=== PATIENT | female | born 1965 | race American Indian/Alaskan Native ===

== ENCOUNTER 2016-07-10 00:36 | Emergency (ER) | payer MEDICARE, MEDICAID ==
[2016-07-10 01:20] LABS: CHLORIDE,CL 102 mmol/L (101-111); SODIUM,NA 138 mmol/L (135-145)
--- NOTE | 2016-07-10 01:31 | EDM.PDOC ---
ED HPI RENAL/ - General Chief Complaint: Genitourinary Problem Stated Complaint: URINATING BLOOD Time Seen by Provider: 07/10/16 01:15 Source of Information: Reports: Patient History Limitations: Reports: No limitations - History of Present Illness INITIAL COMMENTS - FREE TEXT/NARRATIVE: This 51 yo female patient reports to the ED with blood in her urine and urinary frequency. The patient reports her frequency started this afternoon at about 1700 and her hematuria started just prior to coming into the ED. The patient also reports she had right flank pain. The patient took a hydrocodone for the back pain. Symptom Onset Date: 07/09/16 Symptom Onset Time: 17:00 Timing/Duration: Reports: Constant, Getting worse Location: Reports: urethral Quality: Reports: ache, burning Severity: moderate Worsens with: Reports: urinating Associated Symptoms: Reports: burning, dysuria, frequency, blood in urine Treatments [employer]ING: Reports: Other medication(s) - Related Data Allergies/ADRs: Allergies Allergy/AdvReac Type Severity Reaction Status Date / Time erythromycin base Allergy Hives Verified 07/10/16 00:56 [Erythromycin Base] Iodinated Contrast Media - Allergy Cannot Verified 07/10/16 00:56 Oral and Remember [Iodinated Contrast Media - IV Dye] sulfamethoxazole Allergy Hives Verified 07/10/16 00:56 [From Bactrim] tramadol Allergy Rash Verified 07/10/16 00:56 trimethoprim [From Bactrim] Allergy Hives Verified 07/10/16 00:56 IVP dye Allergy Cannot Uncoded 03/06/16 18:41 Remember pollen Allergy Cannot Uncoded 03/06/16 18:41 Remember Home Meds: Home Meds Baclofen 10 mg PO DAILY 04/23/13 [History] DULoxetine [Cymbalta] 60 mg PO DAILY 04/23/13 [History] Insulin Aspart [NovoLOG] 0 units SQ TID PRN 04/23/13 [History] Insulin Detemir [Levemir] 90 units SQ BID 04/23/13 [History] Simvastatin 20 mg PO BEDTIME 04/23/13 [History] Verapamil HCl [Verapamil ER] 180 mg PO BID 04/23/13 [History] Albuterol [Ventolin HFA] 2 puff INH Q4H PRN 09/04/13 [History] Casanthranol-Docusate Sodium 1 cap PO BID 09/04/13 [History] Folic Acid 1 mg PO DAILY 09/04/13 [History] Multivitamin [Multi-Vitamin Daily] 1 tab PO DAILY 09/04/13 [History] Pantoprazole [ProTONIX] 40 mg PO DAILY 09/04/13 [History] Aspirin 325 mg PO DAILY 04/28/15 [History] Montelukast [Singulair] 10 mg PO BEDTIME 11/16/15 [History] Nortriptyline 50 mg PO BEDTIME 11/16/15 [History] Trospium Chloride 20 mg PO BID 11/16/15 [History] Warfarin Sodium [Coumadin] 4 mg PO DAILY #15 tablet 01/06/16 [Rx] Acetaminophen/HYDROcodone [[place] 325-5 MG] 1 - 2 tab PO Q6H 07/10/16 [History] Ambrisentan [Letairis] 5 mg PO DAILY 07/10/16 [History] Cholecalciferol (Vitamin D3) [Vitamin D3] PO DAILY 07/10/16 [History] Fluticasone/Salmeterol [Advair Hfa 230-21 Mcg Inhaler] 2 puff IH BID 07/10/16 [ History] Letrozole 2.5 mg PO DAILY 07/10/16 [History] Loratadine [Allergy] 10 mg PO DAILY 07/10/16 [History] Pregabalin [Lyrica] 100 mg PO BID 07/10/16 [History] Sennosides/Docusate Sodium [Senna-Docusate Sodium] 2 each PO DAILY 07/10/16 [ History] Tadalafil [Adcirca] 20 mg PO DAILY 07/10/16 [History] Past Medical History HEENT History: Reports: Impaired vision, Other (see below) Other HEENT History: wears glasses, sees a black spot in her right eye at times Cardiovascular History: Reports: Blood clots/VTE/DVT, High cholesterol, Hypertension, Other (see below) Other Cardiovascular History: pulmonary hypertension Respiratory History: Reports: Asthma, Bronchitis, recurrent, Sleep apnea, Other (see below) Other Respiratory History: Sleeps with 1/l N/C Gastrointestinal History: Reports: GERD Genitourinary History: Reports: Pyelonephritis, Urinary incontinence, UTI, recurrent, Other (see below) Other Genitourinary History: Stress incontinence, kidney stones 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 Hematologic History: Reports: Folic acid Other Hematologic History: antiphospholipid def. Immunologic History: Reports: None Oncologic (Cancer) History: Reports: Breast Dermatologic History: Reports: Eczema - Infectious Disease History Infectious Disease History: Reports: MRSA Other Infectious Disease History: Patient states she has been cleared for the MRSA - Past Surgical History Head Surgeries/Procedures: Reports: None Other Cardiovascular Surgeries/Procedures: angiogram, Respiratory Surgical History: Reports: None GI Surgical History: Reports: Appendectomy, Cholecystectomy, EGD Female Surgical History: Reports: Breast biopsy, Hysterectomy, Salpingo- oophorectomy Endocrine Surgical History: Reports: Thyroid biopsy Neurological Surgical History: Reports: None Musculoskeletal Surgical History: Reports: None Dermatological Surgical History: Reports: None Social & Family History - Family History Family Medical History: Noncontributory Cardiac: Reports: Hypertension, Stent Other Cardiac Family History: Dad Respiratory: Reports: Asthma, Sleep apnea Other Respiratory Family Hisory: Dad Neurological: Reports: Neuropathy, diabetic Other Neurological Family History: Dad Psychiatric: Reports: Anxiety Other Psychiatric Family History: Dad Endocrine/Metabolic: Reports: Diabetes, type II Other Endocrine/Metabolic Family History: Dad Oncologic: Reports: Liver Other Oncologic Family History: mother - Tobacco Use Smoking Status *Q: Never Smoker Second Hand Smoke Exposure: No - Caffeine Use Caffeine Use: Reports: Coffee, Soda - Alcohol Use Days Per Week of Alcohol Use: 0 - Recreational Drug Use Recreational Drug Use: No - Living Situation & Occupation Living situation: Reports: , with family Occupation: employed ED ROS GENERAL - Review of Systems Review Of Systems: ROS reveals no pertinent complaints other than HPI. ED EXAM, RENAL/ - Physical Exam Exam: See Below Exam Limited By: No limitations General Appearance: alert, WD/WN, mild distress Eye Exam: bilateral eye: EOMI, normal inspection, PERRL Ears: normal external exam, normal canal, hearing grossly normal, normal TMs Nose: normal inspection, normal mucosa, no blood Throat/Mouth: Normal inspection, Normal lips, Normal teeth, Normal gums, Normal oropharynx, Normal voice, No airway compromise Head: atraumatic, normocephalic Neck: normal inspection, supple, non-tender, full range of motion Respiratory/Chest: no respiratory distress, lungs clear, normal breath sounds, no accessory muscle use, chest non-tender Cardiovascular: normal peripheral pulses, regular rate, rhythm, no edema, no gallop, no JVD, no murmur, no rub GI/Abdominal: normal bowel sounds, soft, non tender, no organomegaly, no distention, no abnormal bruit, no mass (Female) Exam: Deferred Rectal (Female) Exam: Deferred Back Exam: CVA tenderness (R) Extremities: normal inspection, normal range of motion, non-tender, normal capillary refill, no pedal edema Neurological: alert, oriented, CN II-XII intact, normal cognition, normal gait, normal reflexes, no motor/sensory deficits Psychiatric: normal affect, normal mood Skin Exam: Warm, Dry, Intact, Normal color, No rash Lymphatic: no adenopathy Course - Vital Signs Last Recorded V/S: Last Vital Signs Temp 36.8 C 07/10/16 00:47 Pulse 109 H 07/10/16 00:47 Resp 20 07/10/16 00:47 BP 135/68 07/10/16 00:47 Pulse Ox 93 L 07/10/16 00:47 - Orders/Labs/Meds Orders: Active Orders 24 hr Category Date Time Status Abdomen Pelvis wo Cont [CT] Urgent Exams 07/10/16 01:22 Taken Labs: Laboratory Tests 07/10/16 07/10/16 07/10/16 Range/Units 00:45 00:45 00:45 WBC 13.8 H (5.0-10.0) 10^3/uL RBC 4.36 (4.2-5.4) 10^6/uL Hgb 12.8 (12.0-16.0) g/dL Hct 40.5 (37.0-47.0) % MCV 92.9 (80-100) fL MCH 29.4 (27.0-34.0) pg MCHC 31.6 L (33.0-35.0) g/dL Plt Count 272 (150-450) 10^3/uL Neut % (Auto) 68.6 (42.2-75.2) % Lymph % (Auto) 15.7 L (20.5-50.1) % [place] % (Auto) 10.9 H (2-8) % Eos % (Auto) 4.6 H (1.0-3.0) % Baso % (Auto) 0.2 (0.0-1.0) % PT 32.7 H (9.0-12.0) SEC INR 3.2 H (0.9-1.2) Sodium 138 (135-145) mmol/L Potassium 3.7 (3.6-5.0) mmol/L Chloride 102 (101-111) mmol/L Carbon Dioxide 27.0 (21.0-31.0) mmol/L Anion Gap 12.7 BUN 11 (7-18) mg/dL Creatinine 0.8 (0.6-1.3) mg/dL Est Cr Clr Drug Dosing 70.23 mL/min Estimated GFR (MDRD) > 60 BUN/Creatinine Ratio 13.75 Glucose 100 (74-105) mg/dL Calcium 8.9 (8.4-10.2) mg/dl Total Bilirubin 0.2 (0.2-1.0) mg/dL AST 32 (10-42) IU/L ALT 26 (10-60) IU/L Alkaline Phosphatase 96 (42-121) IU/L Total Protein 7.4 (6.7-8.2) g/dl Albumin 3.6 (3.2-5.5) g/dl Globulin 3.8 Albumin/Globulin Ratio 0.95 Urine Color (YELLOW) Urine Appearance (CLEAR) Urine pH (5.0-9.0) Ur Specific [place] (1.005-1.030) Urine Protein (NEGATIVE) Urine Glucose (UA) (NEGATIVE) Urine Ketones (NEGATIVE) Urine Occult Blood (NEGATIVE) Urine Nitrite (NEGATIVE) Urine Bilirubin (NEGATIVE) Urine Urobilinogen (0.2-1.0) mg/dL Ur Leukocyte Esterase (NEGATIVE) Urine RBC /HPF Urine WBC (0-5/HPF) /HPF Urine Bacteria (0-FEW/HPF) /HPF Urine Opiates Screen (NEGATIVE) Ur Oxycodone Screen (NEGATIVE) Urine Methadone Screen (NEGATIVE) Ur Barbiturates Screen (NEGATIVE) U Tricyclic Antidepress (NEGATIVE) Ur Phencyclidine Scrn (NEGATIVE) Ur Amphetamine Screen (NEGATIVE) U Methamphetamines Scrn (NEGATIVE) Urine MDMA Screen (NEGATIVE) U Benzodiazepines Scrn (NEGATIVE) Urine Cocaine Screen (NEGATIVE) U Marijuana (THC) Screen (NEGATIVE) 07/10/16 07/10/16 Range/Units 00:52 00:52 WBC (5.0-10.0) 10^3/uL RBC (4.2-5.4) 10^6/uL Hgb (12.0-16.0) g/dL Hct (37.0-47.0) % MCV (80-100) fL MCH (27.0-34.0) pg MCHC (33.0-35.0) g/dL Plt Count (150-450) 10^3/uL Neut % (Auto) (42.2-75.2) % Lymph % (Auto) (20.5-50.1) % [place] % (Auto) (2-8) % Eos % (Auto) (1.0-3.0) % Baso % (Auto) (0.0-1.0) % PT (9.0-12.0) SEC INR (0.9-1.2) Sodium (135-145) mmol/L Potassium (3.6-5.0) mmol/L Chloride (101-111) mmol/L Carbon Dioxide (21.0-31.0) mmol/L Anion Gap BUN (7-18) mg/dL Creatinine (0.6-1.3) mg/dL Est Cr Clr Drug Dosing mL/min Estimated GFR (MDRD) BUN/Creatinine Ratio Glucose (74-105) mg/dL Calcium (8.4-10.2) mg/dl Total Bilirubin (0.2-1.0) mg/dL AST (10-42) IU/L ALT (10-60) IU/L Alkaline Phosphatase (42-121) IU/L Total Protein (6.7-8.2) g/dl Albumin (3.2-5.5) g/dl Globulin Albumin/Globulin Ratio Urine Color Red (YELLOW) Urine Appearance Turbid (CLEAR) Urine pH 5.5 (5.0-9.0) Ur Specific [place] <= 1.005 (1.005-1.030) Urine Protein 100 H (NEGATIVE) Urine Glucose (UA) Negative (NEGATIVE) Urine Ketones Negative (NEGATIVE) Urine Occult Blood Large H (NEGATIVE) Urine Nitrite Negative (NEGATIVE) Urine Bilirubin Negative (NEGATIVE) Urine Urobilinogen 0.2 (0.2-1.0) mg/dL Ur Leukocyte Esterase Moderate H (NEGATIVE) Urine RBC >100 H /HPF Urine WBC >100 H (0-5/HPF) /HPF Urine Bacteria Rare (0-FEW/HPF) /HPF Urine Opiates Screen Negative (NEGATIVE) Ur Oxycodone Screen Negative (NEGATIVE) Urine Methadone Screen Negative (NEGATIVE) Ur Barbiturates Screen Negative (NEGATIVE) U Tricyclic Antidepress Positive H (NEGATIVE) Ur Phencyclidine Scrn Negative (NEGATIVE) Ur Amphetamine Screen Negative (NEGATIVE) U Methamphetamines Scrn Negative (NEGATIVE) Urine MDMA Screen Negative (NEGATIVE) U Benzodiazepines Scrn Negative (NEGATIVE) Urine Cocaine Screen Negative (NEGATIVE) U Marijuana (THC) Screen Negative (NEGATIVE) Meds: Medications Discontinued Medications Generic Name Dose Route Start Last Admin Trade Name Freq PRN Reason Stop Dose Admin Cephalexin 500 mg 07/10/16 02:32 07/10/16 02:36 Keflex PO 07/10/16 02:33 500 mg ONETIME ONE Administration Phenazopyridine HCl 190 mg 07/10/16 02:32 07/10/16 02:35 Urinary Pain Relief PO 07/10/16 02:33 190 mg ONETIME ONE Administration Departure - Departure Time of Disposition: 03:07 Disposition: DC/Tfer to Acute Hospital 02 Condition: fair Clinical Impression: UTI (urinary tract infection) Qualifiers: Urinary tract infection type: site unspecified Hematuria presence: with hematuria Qualified Code(s): N39.0 - Urinary tract infection, site not specified ; R31.9 - Hematuria, unspecified Acute appendicitis Qualifiers: Acute appendicitis type: unspecified acute appendicitis type Qualified Code(s) : K35.80 - Unspecified acute appendicitis Forms: ED Department Discharge, Interfacility Transfer EMTALA Care Plan Goals: Discussed the examination, history and treatments with Dr. Robison via [facility]. Dr. Robison accepted the patient for continued evaluation and further treatment at [facility] in [place]. The patient will be transported by [facility]. - My Orders Last 24 Hours: My Active Orders 07/10/16 01:22 Abdomen Pelvis wo Cont [CT] Urgent - Assessment/Plan Last 24 Hours: My Active Orders 07/10/16 01:22 Abdomen Pelvis wo Cont [CT] Urgent
[2016-07-10] MEDS ORDERED: Phenazopyridine 95 MG Tab PO ONE (02:32)
[2016-07-10] MEDS ORDERED: Cephalexin 500 MG Cap PO ONE (02:32)
[2016-07-10 03:21] VITALS: BP 130/70
== END 2016-07-10 03:48 ==
LOC: DL.ED 00:36
DX: N39.0 Urinary tract infection, site not specified (principal); R31.9 Hematuria, unspecified; K35.80 Unspecified acute appendicitis; K59.00 Constipation, unspecified; Z86.718 Personal history of other venous thrombosis and embolism; Z79.01 Long term (current) use of anticoagulants; E78.00 Pure hypercholesterolemia, unspecified; I10 Essential (primary) hypertension; J45.909 Unspecified asthma, uncomplicated; G47.30 Sleep apnea, unspecified; K21.9 Gastro-esophageal reflux disease without esophagitis; Z86.73 Personal history of transient ischemic attack (TIA), and cerebral infarction without residual deficits; E11.9 Type 2 diabetes mellitus without complications; Z79.4 Long term (current) use of insulin; E66.9 Obesity, unspecified; Z85.3 Personal history of malignant neoplasm of breast; Z86.14 Personal history of Methicillin resistant Staphylococcus aureus infection; Z79.899 Other long term (current) drug therapy; Z88.1 Allergy status to other antibiotic agents; Z91.041 Radiographic dye allergy status; Z88.2 Allergy status to sulfonamides; Z88.8 Allergy status to other drugs, medicaments and biological substances; Z91.048 Other nonmedicinal substance allergy status; N39.3 Stress incontinence (female) (male)
CPT/HCPCS: 36415; 74176; 80053; 80305; 81001; 85025; 85610; 99284; A9270

== ENCOUNTER 2016-09-04 18:03 | Emergency (ER) | payer MEDICARE, MEDICAID ==
--- NOTE | 2016-09-04 18:17 | EDM.PDOC ---
ED HPI GENERAL MEDICAL PROBLEM - General Chief Complaint: General Stated Complaint: HX CANCER, HAS LUMP AROUND NOSE, [id number] Time Seen by Provider: 09/04/16 18:17 Source of Information: Reports: Patient History Limitations: Reports: Other (Pt has noticed with eating tacos yesterday discomfort in upper front dentition, possible in area between nose and mouth? [place] pressure. No swelling in her mouth/face/gums or tongue. She took tylenol which helped. She states occured again today and was worse with eating.) Upper Oral/Mouth Pain Score (Numeric/FACES): 7 - Related Data Allergies Allergy/AdvReac Type Severity Reaction Status Date / Time erythromycin base Allergy Hives Verified 09/04/16 18:26 [Erythromycin Base] Iodinated Contrast Media - Allergy Cannot Verified 09/04/16 18:26 Oral and Remember [Iodinated Contrast Media - IV Dye] sulfamethoxazole Allergy Hives Verified 09/04/16 18:26 [From Bactrim] tramadol Allergy Rash Verified 09/04/16 18:26 trimethoprim [From Bactrim] Allergy Hives Verified 09/04/16 18:26 IVP dye Allergy Cannot Uncoded 03/06/16 18:41 Remember pollen Allergy Cannot Uncoded 03/06/16 18:41 Remember Home Meds: Home Meds Baclofen 10 mg PO DAILY 04/23/13 [History] DULoxetine [Cymbalta] 60 mg PO DAILY 04/23/13 [History] Insulin Aspart [NovoLOG] 0 units SQ TID PRN 04/23/13 [History] Insulin Detemir [Levemir] 90 units SQ BID 04/23/13 [History] Simvastatin 20 mg PO BEDTIME 04/23/13 [History] Verapamil HCl [Verapamil ER] 180 mg PO BID 04/23/13 [History] Albuterol [Ventolin HFA] 2 puff INH Q4H PRN 09/04/13 [History] Casanthranol-Docusate Sodium 1 cap PO BID 09/04/13 [History] Folic Acid 1 mg PO DAILY 09/04/13 [History] Multivitamin [Multi-Vitamin Daily] 1 tab PO DAILY 09/04/13 [History] Pantoprazole [ProTONIX] 40 mg PO DAILY 09/04/13 [History] Aspirin 325 mg PO DAILY 04/28/15 [History] Montelukast [Singulair] 10 mg PO BEDTIME 11/16/15 [History] Nortriptyline 50 mg PO BEDTIME 11/16/15 [History] Trospium Chloride 20 mg PO BID 11/16/15 [History] Warfarin Sodium [Coumadin] 4 mg PO DAILY #15 tablet 01/06/16 [Rx] Acetaminophen/HYDROcodone [[place] 325-5 MG] 1 - 2 tab PO Q6H 07/10/16 [History] Ambrisentan [Letairis] 5 mg PO DAILY 07/10/16 [History] Cholecalciferol (Vitamin D3) [Vitamin D3] PO DAILY 07/10/16 [History] Fluticasone/Salmeterol [Advair Hfa 230-21 Mcg Inhaler] 2 puff IH BID 07/10/16 [ History] Letrozole 2.5 mg PO DAILY 07/10/16 [History] Loratadine [Allergy] 10 mg PO DAILY 07/10/16 [History] Pregabalin [Lyrica] 100 mg PO BID 07/10/16 [History] Sennosides/Docusate Sodium [Senna-Docusate Sodium] 2 each PO DAILY 07/10/16 [ History] Tadalafil [Adcirca] 20 mg PO DAILY 07/10/16 [History] Past Medical History HEENT History: Reports: Impaired Vision, Other (See Below) Other HEENT History: wears glasses, sees a black spot in her right eye at times Cardiovascular History: Reports: Blood Clots/VTE/DVT, High Cholesterol, Hypertension, Other (See Below) Other Cardiovascular History: pulmonary hypertension Respiratory History: Reports: Asthma, Bronchitis, Recurrent, Sleep Apnea, Other (See Below) Other Respiratory History: Sleeps with 1/l N/C Gastrointestinal History: Reports: GERD Genitourinary History: Reports: Pyelonephritis, Urinary Incontinence, UTI, Recurrent, Other (See Below) Other Genitourinary History: Stress incontinence, kidney stones 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 Hematologic History: Reports: Folic Acid Other Hematologic History: antiphospholipid def. Immunologic History: Reports: None Oncologic (Cancer) History: Reports: Breast Dermatologic History: Reports: Eczema - Infectious Disease History Infectious Disease History: Reports: MRSA Other Infectious Disease History: Patient states she has been cleared for the MRSA - Past Surgical History Cardiovascular Surgical History: Reports: Other (See Below) Female Surgical History: Reports: Breast Biopsy, Hysterectomy, Salpingo- Oophorectomy Endocrine Surgical History: Reports: Thyroid Biopsy Social & Family History - Family History Family Medical History: Noncontributory Cardiac: Reports: Hypertension, Stent Other Cardiac Family History: Dad Respiratory: Reports: Asthma, Sleep Apnea Other Respiratory Family Hisory: Dad Neurological: Reports: Neuropathy, Diabetic Other Neurological Family History: Dad Psychiatric: Reports: Anxiety Other Psychiatric Family History: Dad Endocrine/Metabolic: Reports: Diabetes, type II Other Endocrine/Metabolic Family History: Dad Oncologic: Reports: Liver Other Oncologic Family History: mother - Tobacco Use Smoking Status *Q: Never Smoker Second Hand Smoke Exposure: No - Caffeine Use Caffeine Use: Reports: Coffee, Soda - Alcohol Use Days Per Week of Alcohol Use: 0 - Recreational Drug Use Recreational Drug Use: No - Living Situation & Occupation Living situation: Reports: , with Family Occupation: Employed ED ROS GENERAL - Review of Systems Review Of Systems: See Below HEENT: Reports: Other (discomfort in area upper dental gums? area between nose and upper lip-discomfort and pressure? worse with eating, better with tylenol) ED EXAM, DIZZINESS - Physical Exam Exam: See Below Exam Limited By: No Limitations General Appearance: Alert Ears: Normal External Exam, Normal Canal, Normal TMs Nose: Normal Inspection, Normal Mucosa Throat/Mouth: Normal Inspection, Normal Lips, Normal Teeth, Normal Gums, Normal Oropharynx, Normal Voice, No Airway Compromise Head Exam: Atraumatic, Normocephalic Neck: Normal Inspection, Supple, Non-Tender Neurological: Alert, Normal Mood/Affect, CN II-XII Intact, Oriented x 3 Skin Exam: Warm, Dry, Intact, Normal Color, No Rash Course - Vital Signs Text/Narrative:: No evidence of redness/swelling in palate, oral mucosa, tongue, gingiva. No evid of sinus infection. Etiology? Patient was concerned as dx with breast ca and this year had surgery. she is on letrozole but has been on this since april. She is not on an jeffrey inhibitor. Advised unclear etiology. Would suspect that if it was a metastatic issue to bone of face would have developed over time as opposed to occuring in one day? May be dental? Advised monitor. If progressive facial/lips/tongue swelling take benadryl and present to ER. Letrozole se profile noted possible allergic reaction with facial edema, but she has been on this since April 2016. Advised f/u pcp and or dentist if ongoing discomfort. Last Recorded V/S: Last Vital Signs Temp 35.5 C 09/04/16 18:22 Pulse 104 H 09/04/16 18:22 Resp 16 09/04/16 18:22 BP 130/69 09/04/16 18:22 Pulse Ox 95 09/04/16 18:22 Departure - Departure Time of Disposition: 18:41 Disposition: Home, Self-Care 01 Condition: good Clinical Impression: Facial pain - Discharge Information Additional Instructions: It is difficult to determine the exact etiology of this discomfort. It may be a dental issue? If you have persistant discomfort see your primary provider and/ or dentist to progress with your evaluation. If you have progressive swelling lips, face take benadryl immediately and come to the emergency department.
[2016-09-04 18:26] VITALS: BP 130/69
== END 2016-09-04 18:59 | disposition home or self-care (01) ==
LOC: DL.ED 18:03
DX: R51 Headache (principal); E78.00 Pure hypercholesterolemia, unspecified; I10 Essential (primary) hypertension; J45.909 Unspecified asthma, uncomplicated; K21.9 Gastro-esophageal reflux disease without esophagitis; F41.9 Anxiety disorder, unspecified; F32.9 Major depressive disorder, single episode, unspecified; E11.40 Type 2 diabetes mellitus with diabetic neuropathy, unspecified; E66.9 Obesity, unspecified; Z88.6 Allergy status to analgesic agent; Z88.8 Allergy status to other drugs, medicaments and biological substances; Z79.899 Other long term (current) drug therapy; Z86.73 Personal history of transient ischemic attack (TIA), and cerebral infarction without residual deficits; G43.909 Migraine, unspecified, not intractable, without status migrainosus; Z90.710 Acquired absence of both cervix and uterus; Z88.1 Allergy status to other antibiotic agents; Z88.2 Allergy status to sulfonamides; Z91.041 Radiographic dye allergy status; Z79.4 Long term (current) use of insulin; Z79.82 Long term (current) use of aspirin; Z79.01 Long term (current) use of anticoagulants
CPT/HCPCS: 99282; 99283

== ENCOUNTER 2016-10-01 19:41 | Emergency (ER) | payer MEDICARE, MEDICAID | END 2016-10-01 19:53 | disposition left against medical advice (07) | LOC: DL.ED 19:41 | DX: Z53.21 Procedure and treatment not carried out due to patient leaving prior to being seen by health care provider (principal) ==

== ENCOUNTER 2016-10-01 20:03 | Emergency (ER) | payer MEDICARE, MEDICAID ==
[2016-10-01 20:25] VITALS: BP 137/70
[2016-10-01] MEDS ORDERED: Acetaminophen/HYDROcodone 325-10 MG Tab PO ONE (20:54)
[2016-10-01] MEDS ORDERED: Cephalexin 500 MG Cap PO ONE (20:54)
--- NOTE | 2016-10-01 21:01 | EDM.PDOC ---
ED HPI GENERAL MEDICAL PROBLEM - General Chief Complaint: ENT Problem Stated Complaint: LUMP INSIDE NASAL AREA, [id number] Time Seen by Provider: 10/01/16 20:56 Source of Information: Reports: Patient History Limitations: Reports: No Limitations - History of Present Illness INITIAL COMMENTS - FREE TEXT/NARRATIVE: 2 weeks h/o on off tender swelling inside right nostril, tried to see clinic but unable. 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 Right Nare Pain Score (Numeric/FACES): 8 - Related Data Allergies Allergy/AdvReac Type Severity Reaction Status Date / Time erythromycin base Allergy Hives Verified 10/01/16 20:25 [Erythromycin Base] Iodinated Contrast- Oral and Allergy Cannot Verified 10/01/16 20:25 IV Dye Remember [Iodinated Contrast Media - IV Dye] sulfamethoxazole Allergy Hives Verified 10/01/16 20:25 [From Bactrim] tramadol Allergy Rash Verified 10/01/16 20:25 trimethoprim [From Bactrim] Allergy Hives Verified 10/01/16 20:25 IVP dye Allergy Cannot Uncoded 10/01/16 20:25 Remember pollen Allergy Cannot Uncoded 10/01/16 20:25 Remember Home Meds: Home Meds Baclofen 10 mg PO DAILY 04/23/13 [History] DULoxetine [Cymbalta] 60 mg PO DAILY 04/23/13 [History] Insulin Aspart [NovoLOG] 20 units SQ TID PRN 04/23/13 [History] Insulin Detemir [Levemir] 90 units SQ BID 04/23/13 [History] Simvastatin 20 mg PO BEDTIME 04/23/13 [History] Verapamil HCl [Verapamil ER] 180 mg PO DAILY 04/23/13 [History] Albuterol [Ventolin HFA] 2 puff INH Q4H PRN 09/04/13 [History] Casanthranol-Docusate Sodium 1 cap PO BID 09/04/13 [History] Folic Acid 1 mg PO DAILY 09/04/13 [History] Multivitamin [Multi-Vitamin Daily] 1 tab PO DAILY 09/04/13 [History] Pantoprazole [ProTONIX] 40 mg PO DAILY 09/04/13 [History] Aspirin 325 mg PO DAILY 04/28/15 [History] Montelukast [Singulair] 10 mg PO BEDTIME 11/16/15 [History] Nortriptyline 50 mg PO BEDTIME 11/16/15 [History] Trospium Chloride 20 mg PO BID 11/16/15 [History] Acetaminophen/HYDROcodone [[place] 325-5 MG] 1 - 2 tab PO Q6H 07/10/16 [History] Ambrisentan [Letairis] 5 mg PO DAILY 07/10/16 [History] Cholecalciferol (Vitamin D3) [Vitamin D3] 400 units PO DAILY 07/10/16 [History] Fluticasone/Salmeterol [Advair Hfa 230-21 Mcg Inhaler] 2 puff IH BID 07/10/16 [ History] Letrozole 2.5 mg PO DAILY 07/10/16 [History] Loratadine [Allergy] 10 mg PO DAILY 07/10/16 [History] Pregabalin [Lyrica] 100 mg PO BID 07/10/16 [History] Sennosides/Docusate Sodium [Senna-Docusate Sodium] 2 each PO DAILY 07/10/16 [ History] Tadalafil [Adcirca] 20 mg PO DAILY 07/10/16 [History] Warfarin Sodium [Coumadin] 5 mg PO DAILY 10/01/16 [History] Past Medical History HEENT History: Reports: Impaired Vision, Other (See Below) Other HEENT History: wears glasses, sees a black spot in her right eye at times Cardiovascular History: Reports: Blood Clots/VTE/DVT, High Cholesterol, Hypertension, Other (See Below) Other Cardiovascular History: pulmonary hypertension Respiratory History: Reports: Asthma, Bronchitis, Recurrent, Sleep Apnea, Other (See Below) Other Respiratory History: Sleeps with 1/l N/C Gastrointestinal History: Reports: GERD Genitourinary History: Reports: Pyelonephritis, Urinary Incontinence, UTI, Recurrent, Other (See Below) Other Genitourinary History: Stress incontinence, kidney stones 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 Hematologic History: Reports: Folic Acid Other Hematologic History: antiphospholipid def. Immunologic History: Reports: None Other Immunologic History: on oral chemo Oncologic (Cancer) History: Reports: Breast Dermatologic History: Reports: Eczema - Infectious Disease History Infectious Disease History: Reports: MRSA Other Infectious Disease History: Patient states she has been cleared for the MRSA - Past Surgical History Head Surgeries/Procedures: Reports: None Cardiovascular Surgical History: Reports: Other (See Below) Female Surgical History: Reports: Breast Biopsy, Hysterectomy, Salpingo- Oophorectomy Endocrine Surgical History: Reports: Thyroid Biopsy Social & Family History - Family History Family Medical History: Noncontributory Cardiac: Reports: Hypertension, Stent Other Cardiac Family History: Dad Respiratory: Reports: Asthma, Sleep Apnea Other Respiratory Family Hisory: Dad Neurological: Reports: Neuropathy, Diabetic Other Neurological Family History: Dad Psychiatric: Reports: Anxiety Other Psychiatric Family History: Dad Endocrine/Metabolic: Reports: Diabetes, type II Other Endocrine/Metabolic Family History: Dad Oncologic: Reports: Liver Other Oncologic Family History: mother - Tobacco Use Smoking Status *Q: Never Smoker Second Hand Smoke Exposure: No - Caffeine Use Caffeine Use: Reports: Coffee, Soda, Tea - Alcohol Use Days Per Week of Alcohol Use: 0 - Recreational Drug Use Recreational Drug Use: No - Living Situation & Occupation Living situation: Reports: , with Family Occupation: Employed ED ROS ENT - Review of Systems Review Of Systems: ROS reveals no pertinent complaints other than HPI. ED EXAM, ENT - Physical Exam Exam: See Below Exam Limited By: No Limitations General Appearance: Alert, WD/WN, Mild Distress, Other (crying) Ears: Hearing Grossly Normal Nose: Other (right nostril entry with tender non erythematous lump medially without drainage or local cellulitis, no lymphangitis.) Head: Atraumatic Neck: Non-Tender, Full Range of Motion Respiratory/Chest: No Respiratory Distress Cardiovascular: Regular Rate, Rhythm GI/Abdominal: Soft, Non-Tender Neurological: Alert, Oriented, Normal Cognition, Normal Gait, No Motor/Sensory Deficits Psychiatric: Tearful Skin: Warm, Dry Lymphatic: No Adenopathy Course - Vital Signs Last Recorded V/S: Last Vital Signs Temp 36.8 C 10/01/16 20:06 Pulse 105 H 10/01/16 20:06 Resp 17 10/01/16 20:06 BP 137/70 10/01/16 20:06 Pulse Ox 91 L 10/01/16 20:06 - Orders/Labs/Meds Meds: Medications Discontinued Medications Generic Name Dose Route Start Last Admin Trade Name Freq PRN Reason Stop Dose Admin Hydrocodone Bitart/Acetaminophen 1 tab 10/01/16 20:54 [place] 325-10 Mg PO 10/01/16 20:55 ONETIME ONE Cephalexin 500 mg 10/01/16 20:54 Keflex PO 10/01/16 20:55 ONETIME ONE Departure - Departure Time of Disposition: 20:58 Disposition: Home, Self-Care 01 Condition: Good Clinical Impression: Abscess of nasal cavity - Discharge Information Instructions: Abscess Forms: ED Department Discharge Additional Instructions: 1) see clinic for ENT REFERRAL on Monday. 2) recheck if there is any change or concern rx given; keflex 250mg qid x 40 vicodin 5/325mg bid prn x 12
== END 2016-10-01 21:10 | disposition home or self-care (01) ==
LOC: DL.ED 20:03
DX: J34.0 Abscess, furuncle and carbuncle of nose (principal); H54.7 Unspecified visual loss; E78.00 Pure hypercholesterolemia, unspecified; I10 Essential (primary) hypertension; J45.909 Unspecified asthma, uncomplicated; K21.9 Gastro-esophageal reflux disease without esophagitis; G43.909 Migraine, unspecified, not intractable, without status migrainosus; E66.9 Obesity, unspecified; E11.40 Type 2 diabetes mellitus with diabetic neuropathy, unspecified; Z88.8 Allergy status to other drugs, medicaments and biological substances; Z91.041 Radiographic dye allergy status; Z88.2 Allergy status to sulfonamides; Z79.899 Other long term (current) drug therapy; Z79.4 Long term (current) use of insulin; Z79.01 Long term (current) use of anticoagulants
CPT/HCPCS: 99283; A9270

== ENCOUNTER 2016-12-30 21:36 | Emergency (ER) | payer MEDICARE, MEDICAID ==
[2016-12-30 21:43] VITALS: BP 161/95
[2016-12-30] MEDS ORDERED: Phenazopyridine 95 MG Tab PO ONE (22:03)
[2016-12-30] MEDS ORDERED: Nitrofurantoin Monohydrate/Macrocrystalline 100 MG Cap PO ONE (22:03)
--- NOTE | 2016-12-30 22:08 | EDM.PDOC ---
ED HPI GENERAL MEDICAL PROBLEM - General Chief Complaint: Genitourinary Problem Stated Complaint: infection [id number] Time Seen by Provider: 12/30/16 22:04 Source of Information: Reports: Patient History Limitations: Reports: No Limitations - History of Present Illness INITIAL COMMENTS - FREE TEXT/NARRATIVE: onset Sx yesterday. - Related Data Allergies Allergy/AdvReac Type Severity Reaction Status Date / Time erythromycin base Allergy Hives Verified 12/30/16 21:55 [Erythromycin Base] Iodinated Contrast- Oral and Allergy Cannot Verified 12/30/16 21:55 IV Dye Remember [Iodinated Contrast Media - IV Dye] sulfamethoxazole Allergy Hives Verified 12/30/16 21:55 [From Bactrim] tramadol Allergy Rash Verified 12/30/16 21:55 trimethoprim [From Bactrim] Allergy Hives Verified 12/30/16 21:55 IVP dye Allergy Cannot Uncoded 12/30/16 21:55 Remember pollen Allergy Cannot Uncoded 12/30/16 21:55 Remember Home Meds: Home Meds Baclofen 10 mg PO DAILY 04/23/13 [History] DULoxetine [Cymbalta] 60 mg PO DAILY 04/23/13 [History] Insulin Aspart [NovoLOG] 20 units SQ TID PRN 04/23/13 [History] Insulin Detemir [Levemir] 90 units SQ BID 04/23/13 [History] Simvastatin 20 mg PO BEDTIME 04/23/13 [History] Verapamil HCl [Verapamil ER] 180 mg PO DAILY 04/23/13 [History] Albuterol [Ventolin HFA] 2 puff INH Q4H PRN 09/04/13 [History] Folic Acid 1 mg PO DAILY 09/04/13 [History] Multivitamin [Multi-Vitamin Daily] 1 tab PO DAILY 09/04/13 [History] Pantoprazole [ProTONIX] 40 mg PO DAILY 09/04/13 [History] Aspirin 325 mg PO DAILY 04/28/15 [History] Montelukast [Singulair] 10 mg PO BEDTIME 11/16/15 [History] Nortriptyline 50 mg PO BEDTIME 11/16/15 [History] Trospium Chloride 20 mg PO DAILY 11/16/15 [History] Ambrisentan [Letairis] 5 mg PO DAILY 07/10/16 [History] Cholecalciferol (Vitamin D3) [Vitamin D3] 400 units PO DAILY 07/10/16 [History] Fluticasone/Salmeterol [Advair Hfa 230-21 Mcg Inhaler] 2 puff IH BID 07/10/16 [ History] Letrozole 2.5 mg PO DAILY 07/10/16 [History] Loratadine [Allergy] 10 mg PO DAILY 07/10/16 [History] Pregabalin [Lyrica] 100 mg PO BID 07/10/16 [History] Sennosides/Docusate Sodium [Senna-Docusate Sodium] 2 each PO DAILY 07/10/16 [ History] Tadalafil [Adcirca] 20 mg PO DAILY 07/10/16 [History] Warfarin Sodium [Coumadin] 5 mg PO DAILY 10/01/16 [History] Past Medical History HEENT History: Reports: Impaired Vision, Other (See Below) Other HEENT History: wears glasses, sees a black spot in her right eye at times Cardiovascular History: Reports: Blood Clots/VTE/DVT, High Cholesterol, Hypertension, Other (See Below) Other Cardiovascular History: pulmonary hypertension Respiratory History: Reports: Asthma, Bronchitis, Recurrent, Sleep Apnea, Other (See Below) Other Respiratory History: Sleeps with 1/l N/C Gastrointestinal History: Reports: GERD Genitourinary History: Reports: Pyelonephritis, Urinary Incontinence, UTI, Recurrent, Other (See Below) Other Genitourinary History: Stress incontinence, kidney stones 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 Hematologic History: Reports: Folic Acid Other Hematologic History: antiphospholipid def. Immunologic History: Reports: None Other Immunologic History: on oral chemo Oncologic (Cancer) History: Reports: Breast Dermatologic History: Reports: Eczema - Infectious Disease History Infectious Disease History: Reports: MRSA Other Infectious Disease History: Patient states she has been cleared for the MRSA - Past Surgical History Head Surgeries/Procedures: Reports: None Cardiovascular Surgical History: Reports: Other (See Below) Female Surgical History: Reports: Breast Biopsy, Hysterectomy, Salpingo- Oophorectomy Endocrine Surgical History: Reports: Thyroid Biopsy Oncologic Surgical History: Reports: Mastectomy Social & Family History - Family History Family Medical History: Noncontributory Cardiac: Reports: Hypertension, Stent Other Cardiac Family History: Dad Respiratory: Reports: Asthma, Sleep Apnea Other Respiratory Family Hisory: Dad Neurological: Reports: Neuropathy, Diabetic Other Neurological Family History: Dad Psychiatric: Reports: Anxiety Other Psychiatric Family History: Dad Endocrine/Metabolic: Reports: Diabetes, type II Other Endocrine/Metabolic Family History: Dad Oncologic: Reports: Liver Other Oncologic Family History: mother - Tobacco Use Smoking Status *Q: Never Smoker Second Hand Smoke Exposure: No - Caffeine Use Caffeine Use: Reports: Soda - Alcohol Use Days Per Week of Alcohol Use: 0 - Recreational Drug Use Recreational Drug Use: No - Living Situation & Occupation Living situation: Reports: , with Family Occupation: Employed ED ROS GENERAL - Review of Systems Review Of Systems: ROS reveals no pertinent complaints other than HPI. ED EXAM, RENAL/ - Physical Exam Exam: See Below Exam Limited By: No Limitations General Appearance: Alert, WD/WN, Mild Distress, Other (discomfort) Ears: Hearing Grossly Normal Throat/Mouth: Normal Voice, No Airway Compromise Head: Atraumatic Neck: Non-Tender, Full Range of Motion Respiratory/Chest: No Respiratory Distress Cardiovascular: Regular Rate, Rhythm GI/Abdominal: Soft, Non-Tender Neurological: Alert, Oriented, Normal Cognition, Normal Gait, No Motor/Sensory Deficits Psychiatric: Normal Affect, Normal Mood Skin Exam: Warm, Dry, Normal Color Lymphatic: No Adenopathy Course - Vital Signs Last Recorded V/S: Last Vital Signs Temp 36.4 C 12/30/16 21:42 Pulse 100 12/30/16 21:42 Resp 20 12/30/16 21:42 BP 161/95 H 12/30/16 21:42 Pulse Ox 92 L 12/30/16 21:42 - Orders/Labs/Meds Orders: Active Orders 24 hr Category Date Time Status Nitrofurantoin [place]/Macrocryst [Macrobid] Med 12/30/16 22:03 Once 100 mg PO ONETIME ONE Phenazopyridine [Urinary Pain Relief] Med 12/30/16 22:03 Once 95 mg PO ONETIME ONE Labs: Laboratory Tests 12/30/16 Range/Units 21:40 Urine Color [place] (YELLOW) Urine Appearance Slightly cloudy (CLEAR) Urine pH 6.0 (5.0-9.0) Ur Specific [place] 1.015 (1.005-1.030) Urine Protein Negative (NEGATIVE) Urine Glucose (UA) 250 H (NEGATIVE) Urine Ketones 15 H (NEGATIVE) Urine Occult Blood Negative (NEGATIVE) Urine Nitrite Positive H (NEGATIVE) Urine Bilirubin Large H (NEGATIVE) Urine Urobilinogen 2.0 H (0.2-1.0) mg/dL Ur Leukocyte Esterase Large H (NEGATIVE) Urine RBC 0-5 /HPF Urine WBC 40-50 H (0-5/HPF) /HPF Ur Epithelial Cells Few /HPF Urine Bacteria Moderate H (0-FEW/HPF) /HPF Urine Mucus Moderate H /LPF Departure - Departure Time of Disposition: 22:06 Disposition: Home, Self-Care 01 Condition: Good Clinical Impression: UTI (urinary tract infection) Qualifiers: Urinary tract infection type: acute cystitis Hematuria presence: with hematuria Qualified Code(s): N30.01 - Acute cystitis with hematuria - Discharge Information Instructions: Urinary Tract Infection, Adult, [id number] Additional Instructions: 1) rest 2) drink lots of liquids 3) follow up at clinic or recheck as needed rx given; macrobid 100mg bid x 20 pyridium 100mg tid prn x 12 - My Orders Last 24 Hours: My Active Orders 12/30/16 22:03 Nitrofurantoin [place]/Macrocryst [Macrobid] 100 mg PO ONETIME ONE Phenazopyridine [Urinary Pain Relief] 95 mg PO ONETIME ONE - Assessment/Plan Last 24 Hours: My Active Orders 12/30/16 22:03 Nitrofurantoin [place]/Macrocryst [Macrobid] 100 mg PO ONETIME ONE Phenazopyridine [Urinary Pain Relief] 95 mg PO ONETIME ONE
== END 2016-12-30 22:12 | disposition home or self-care (01) ==
LOC: DL.ED 21:36
DX: N30.01 Acute cystitis with hematuria (principal); E78.00 Pure hypercholesterolemia, unspecified; I10 Essential (primary) hypertension; G43.909 Migraine, unspecified, not intractable, without status migrainosus; E11.40 Type 2 diabetes mellitus with diabetic neuropathy, unspecified; E66.9 Obesity, unspecified; K21.9 Gastro-esophageal reflux disease without esophagitis; F41.9 Anxiety disorder, unspecified; F32.9 Major depressive disorder, single episode, unspecified; Z88.1 Allergy status to other antibiotic agents; Z88.2 Allergy status to sulfonamides; Z91.041 Radiographic dye allergy status; Z79.4 Long term (current) use of insulin; Z79.82 Long term (current) use of aspirin; Z79.899 Other long term (current) drug therapy; Z86.73 Personal history of transient ischemic attack (TIA), and cerebral infarction without residual deficits
CPT/HCPCS: 81001; 99283; A9270

== ENCOUNTER 2017-01-13 21:46 | Emergency (ER) | payer MEDICARE, MEDICAID ==
[2017-01-14 02:38] VITALS: BP 136/88
--- NOTE | 2017-01-14 03:13 | EDM.PDOC ---
ED HPI GENERAL MEDICAL PROBLEM - General Chief Complaint: Skin Complaint Stated Complaint: TUBE INCISION OPENED BACK UP [id number] Time Seen by Provider: 01/14/17 03:07 Source of Information: Reports: Patient History Limitations: Reports: No Limitations - History of Present Illness INITIAL COMMENTS - FREE TEXT/NARRATIVE: hx breast acnacer, wounds healing, gien ok to start exercising, noted with activity odor of rotten potatoes, thaen last noght area of drain site opened an foul drainage, . Right Breast Pain Score (Numeric/FACES): 3 - Related Data Allergies Allergy/AdvReac Type Severity Reaction Status Date / Time erythromycin base Allergy Hives Verified 01/13/17 22:53 [Erythromycin Base] Iodinated Contrast- Oral and Allergy Cannot Verified 01/13/17 22:53 IV Dye Remember [Iodinated Contrast Media - IV Dye] sulfamethoxazole Allergy Hives Verified 01/13/17 22:53 [From Bactrim] tramadol Allergy Rash Verified 01/13/17 22:53 trimethoprim [From Bactrim] Allergy Hives Verified 01/13/17 22:53 IVP dye Allergy Cannot Uncoded 01/13/17 22:53 Remember pollen Allergy Cannot Uncoded 01/13/17 22:53 Remember Home Meds: Home Meds Baclofen 10 mg PO DAILY 04/23/13 [History] DULoxetine [Cymbalta] 60 mg PO DAILY 04/23/13 [History] Insulin Aspart [NovoLOG] 30 units SQ TID PRN 04/23/13 [History] Insulin Detemir [Levemir] 90 units SQ BID 04/23/13 [History] Simvastatin 20 mg PO BEDTIME 04/23/13 [History] Verapamil HCl [Verapamil ER] 180 mg PO DAILY 04/23/13 [History] Albuterol [Ventolin HFA] 2 puff INH Q4H PRN 09/04/13 [History] Folic Acid 1 mg PO DAILY 09/04/13 [History] Multivitamin [Multi-Vitamin Daily] 1 tab PO DAILY 09/04/13 [History] Pantoprazole [ProTONIX] 40 mg PO DAILY 09/04/13 [History] Aspirin 325 mg PO DAILY 04/28/15 [History] Montelukast [Singulair] 10 mg PO BEDTIME 11/16/15 [History] Nortriptyline 50 mg PO BEDTIME 11/16/15 [History] Trospium Chloride 20 mg PO DAILY 11/16/15 [History] Ambrisentan [Letairis] 5 mg PO DAILY 07/10/16 [History] Cholecalciferol (Vitamin D3) [Vitamin D3] 400 units PO DAILY 07/10/16 [History] Fluticasone/Salmeterol [Advair Hfa 230-21 Mcg Inhaler] 2 puff IH BID 07/10/16 [ History] Letrozole 2.5 mg PO DAILY 07/10/16 [History] Loratadine [Allergy] 10 mg PO DAILY 07/10/16 [History] Pregabalin [Lyrica] 100 mg PO BID 07/10/16 [History] Sennosides/Docusate Sodium [Senna-Docusate Sodium] 2 each PO DAILY 07/10/16 [ History] Tadalafil [Adcirca] 20 mg PO DAILY 07/10/16 [History] Warfarin Sodium [Coumadin] 5 mg PO DAILY 10/01/16 [History] Past Medical History HEENT History: Reports: Impaired Vision, Other (See Below) Other HEENT History: wears glasses, sees a black spot in her right eye at times Cardiovascular History: Reports: Blood Clots/VTE/DVT, High Cholesterol, Hypertension, Other (See Below) Other Cardiovascular History: pulmonary hypertension Respiratory History: Reports: Asthma, Bronchitis, Recurrent, Sleep Apnea, Other (See Below) Other Respiratory History: Sleeps with 1/l N/C Gastrointestinal History: Reports: GERD Genitourinary History: Reports: Pyelonephritis, Urinary Incontinence, UTI, Recurrent, Other (See Below) Other Genitourinary History: Stress incontinence, kidney stones 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 Hematologic History: Reports: Folic Acid Other Hematologic History: antiphospholipid def. Immunologic History: Reports: None Other Immunologic History: on oral chemo Oncologic (Cancer) History: Reports: Breast Dermatologic History: Reports: Eczema - Infectious Disease History Infectious Disease History: Reports: MRSA Other Infectious Disease History: Patient states she has been cleared for the MRSA - Past Surgical History Head Surgeries/Procedures: Reports: None Cardiovascular Surgical History: Reports: Other (See Below) Female Surgical History: Reports: Breast Biopsy, Hysterectomy, Salpingo- Oophorectomy Endocrine Surgical History: Reports: Thyroid Biopsy Oncologic Surgical History: Reports: Mastectomy Other Oncologic Surgeries/Procedures: marina. with implants. Social & Family History - Family History Family Medical History: Noncontributory Cardiac: Reports: Hypertension, Stent Other Cardiac Family History: Dad Respiratory: Reports: Asthma, Sleep Apnea Other Respiratory Family Hisory: Dad Neurological: Reports: Neuropathy, Diabetic Other Neurological Family History: Dad Psychiatric: Reports: Anxiety Other Psychiatric Family History: Dad Endocrine/Metabolic: Reports: Diabetes, type II Other Endocrine/Metabolic Family History: Dad Oncologic: Reports: Liver Other Oncologic Family History: mother - Tobacco Use Smoking Status *Q: Never Smoker Second Hand Smoke Exposure: No - Caffeine Use Caffeine Use: Reports: Coffee, Soda - Alcohol Use Days Per Week of Alcohol Use: 0 - Recreational Drug Use Recreational Drug Use: No - Living Situation & Occupation Living situation: Reports: , with Family Occupation: Employed ED ROS GENERAL - Review of Systems Review Of Systems: ROS reveals no pertinent complaints other than HPI. ED EXAM, SKIN/RASH Exam: See Below Exam Limited By: No Limitations General Appearance: Alert, No Apparent Distress Eye Exam: Bilateral Eye: EOMI Ears: Normal External Exam, Normal TMs Nose: Normal Inspection, Normal Mucosa, No Blood Throat/Mouth: Normal Inspection, Normal Lips, Normal Teeth, Normal Gums, Normal Oropharynx, No Airway Compromise, Perioral Cyanosis Head: Atraumatic, Normocephalic, Facial Swelling Neck: Normal Inspection, Limited Range of Motion, Tender Lateral, Tender Midline. No: Lymphadenopathy (L), Lymphadenopathy (R), Thyromegaly Respiratory/Chest: No Respiratory Distress, Lungs Clear, Normal Breath Sounds Cardiovascular: Normal Peripheral Pulses, Regular Rate, Rhythm GI/Abdominal: Normal Bowel Sounds, Soft (Female) Exam: Normal External Exam Course - Vital Signs Last Recorded V/S: Last Vital Signs Temp 97.7 F 01/14/17 02:36 Pulse 102 H 01/14/17 02:36 Resp 14 01/14/17 02:36 BP 136/88 01/14/17 02:36 Pulse Ox 92 L 01/14/17 02:36 - Orders/Labs/Meds Meds: Medications Discontinued Medications Generic Name Dose Route Start Last Admin Trade Name Stephen PRN Reason Stop Dose Admin Diphenhydramine HCl 25 mg 01/14/17 03:33 01/14/17 03:42 Benadryl PO 01/14/17 03:34 25 mg ONETIME ONE Administration Trimethoprim/Sulfamethoxazole 1 tab 01/14/17 03:15 01/14/17 03:27 Septra Ds PO 01/14/17 03:16 1 tab ONETIME ONE Administration - Re-Assessments/Exams Free Text/Narrative Re-Assessment/Exam: 01/14/17 03:37 Patient questioned regarding medication allergies, Patient noted erythromycin. Was given one dose Bactrrim and remebered allergy after taking medication. Followed with po Benadryl, Patient instructed to return if any symptoms noted, continue with benaryl 25mg every 4 hours for 24 hours then as needed. Rx written for doxycycline 100mg twice daily for one week. Departure - Departure Time of Disposition: 03:16 Disposition: Home, Self-Care 01 Condition: Good Clinical Impression: Abscess, Hx MRSA infection - Discharge Information Forms: ED Department Discharge Additional Instructions: bactrim DS one twice kevin for 5 days Recheck with Surgeon on Monday Keep area covered with dressing
[2017-01-14] MEDS ORDERED: Sulfamethoxazole/Trimethoprim 800-160 MG Tab PO ONE (03:15)
[2017-01-14] MEDS ORDERED: diphenhydrAMINE 25 MG Tab PO ONE (03:33)
== END 2017-01-14 03:45 | disposition home or self-care (01) ==
LOC: DL.ED 21:46
DX: T81.4XXA Infection following a procedure, initial encounter (principal); N61.1 Abscess of the breast and nipple; I10 Essential (primary) hypertension; E78.00 Pure hypercholesterolemia, unspecified; J45.909 Unspecified asthma, uncomplicated; G47.30 Sleep apnea, unspecified; K21.9 Gastro-esophageal reflux disease without esophagitis; E11.42 Type 2 diabetes mellitus with diabetic polyneuropathy; F32.9 Major depressive disorder, single episode, unspecified; Z86.73 Personal history of transient ischemic attack (TIA), and cerebral infarction without residual deficits; Z85.3 Personal history of malignant neoplasm of breast; Z90.710 Acquired absence of both cervix and uterus; Z98.890 Other specified postprocedural states; Z90.13 Acquired absence of bilateral breasts and nipples; Z86.14 Personal history of Methicillin resistant Staphylococcus aureus infection; Z79.4 Long term (current) use of insulin; Z79.01 Long term (current) use of anticoagulants; Z79.899 Other long term (current) drug therapy; Z86.718 Personal history of other venous thrombosis and embolism; Z88.1 Allergy status to other antibiotic agents; Z88.2 Allergy status to sulfonamides; Z88.5 Allergy status to narcotic agent; Z91.041 Radiographic dye allergy status
CPT/HCPCS: 87070; 99283; A9270; 87077; 87186

== ENCOUNTER 2017-05-07 15:04 | Emergency (ER) | payer MEDICARE, MEDICAID ==
[2017-05-07 15:15] VITALS: BP 143/91
[2017-05-07 16:36] LABS: ANION GAP 9.9; CHLORIDE,CL 99 mmol/L (101-111); SODIUM,NA 133 mmol/L (135-145)
--- NOTE | 2017-05-07 16:54 | EDM.PDOC ---
ED HPI GENERAL MEDICAL PROBLEM - General Chief Complaint: General Stated Complaint: BLOOD TEST Time Seen by Provider: 05/07/17 15:30 Source of Information: Reports: Patient, RN, RN Notes Reviewed History Limitations: Reports: No Limitations - History of Present Illness INITIAL COMMENTS - FREE TEXT/NARRATIVE: Patient has bleeding gums and bruising on the abdomen and left leg and noticing some petechiae. She denies any other complaints. Onset: Today Location: Reports: Abdomen Quality: Reports: Ache Severity: Moderate Improves with: Reports: None Worsens with: Reports: None Associated Symptoms: Reports: No Other Symptoms - Related Data Allergies Allergy/AdvReac Type Severity Reaction Status Date / Time erythromycin base Allergy Hives Verified 05/07/17 15:15 [Erythromycin Base] Iodinated Contrast- Oral and Allergy Cannot Verified 05/07/17 15:15 IV Dye Remember [Iodinated Contrast Media - IV Dye] sulfamethoxazole Allergy Hives Verified 05/07/17 15:15 [From Bactrim] tramadol Allergy Rash Verified 05/07/17 15:15 trimethoprim [From Bactrim] Allergy Hives Verified 05/07/17 15:15 IVP dye Allergy Cannot Uncoded 05/07/17 15:15 Remember pollen Allergy Cannot Uncoded 05/07/17 15:15 Remember Home Meds: Home Meds Baclofen 10 mg PO DAILY 04/23/13 [History] DULoxetine [Cymbalta] 60 mg PO DAILY 04/23/13 [History] Insulin Aspart [NovoLOG] 30 units SQ TID PRN 04/23/13 [History] Insulin Detemir [Levemir] 90 units SQ BID 04/23/13 [History] Simvastatin 20 mg PO BEDTIME 04/23/13 [History] Verapamil HCl [Verapamil ER] 180 mg PO DAILY 04/23/13 [History] Albuterol [Ventolin HFA] 2 puff INH Q4H PRN 09/04/13 [History] Folic Acid 1 mg PO DAILY 09/04/13 [History] Multivitamin [Multi-Vitamin Daily] 1 tab PO DAILY 09/04/13 [History] Pantoprazole [ProTONIX] 40 mg PO DAILY 09/04/13 [History] Aspirin 325 mg PO DAILY 04/28/15 [History] Montelukast [Singulair] 10 mg PO BEDTIME 11/16/15 [History] Nortriptyline 50 mg PO BEDTIME 11/16/15 [History] Trospium Chloride 20 mg PO DAILY 11/16/15 [History] Ambrisentan [Letairis] 10 mg PO DAILY 07/10/16 [History] Cholecalciferol (Vitamin D3) [Vitamin D3] 400 units PO DAILY 07/10/16 [History] Fluticasone/Salmeterol [Advair Hfa 230-21 Mcg Inhaler] 2 puff IH BID 07/10/16 [ History] Letrozole 2.5 mg PO DAILY 07/10/16 [History] Loratadine [Allergy] 10 mg PO DAILY 07/10/16 [History] Pregabalin [Lyrica] 200 mg PO DAILY 07/10/16 [History] Sennosides/Docusate Sodium [Senna-Docusate Sodium] 2 each PO DAILY 07/10/16 [ History] Tadalafil [Adcirca] 20 mg PO DAILY 07/10/16 [History] Warfarin Sodium [Coumadin] 5 mg PO DAILY 10/01/16 [History] LORazepam [Ativan] 1 mg PO Q6HR PRN 05/07/17 [History] Past Medical History HEENT History: Reports: Impaired Vision, Other (See Below) Other HEENT History: wears glasses, sees a black spot in her right eye at times Cardiovascular History: Reports: Blood Clots/VTE/DVT, High Cholesterol, Hypertension, Other (See Below) Other Cardiovascular History: pulmonary hypertension Respiratory History: Reports: Asthma, Bronchitis, Recurrent, Sleep Apnea, Other (See Below) Other Respiratory History: Sleeps with 1/l N/C Gastrointestinal History: Reports: GERD Genitourinary History: Reports: Pyelonephritis, Urinary Incontinence, UTI, Recurrent, Other (See Below) Other Genitourinary History: Stress incontinence, kidney stones 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 Hematologic History: Reports: Folic Acid Other Hematologic History: antiphospholipid def. Immunologic History: Reports: None Other Immunologic History: on oral chemo Oncologic (Cancer) History: Reports: Breast Dermatologic History: Reports: Eczema - Infectious Disease History Infectious Disease History: Reports: MRSA Other Infectious Disease History: Patient states she has been cleared for the MRSA - Past Surgical History Head Surgeries/Procedures: Reports: None Female Surgical History: Reports: Breast Biopsy, Hysterectomy, Salpingo- Oophorectomy Endocrine Surgical History: Reports: Thyroid Biopsy Oncologic Surgical History: Reports: Mastectomy Other Oncologic Surgeries/Procedures: marina. with implants. Social & Family History - Family History Family Medical History: Noncontributory Cardiac: Reports: Hypertension, Stent Other Cardiac Family History: Dad Respiratory: Reports: Asthma, Sleep Apnea Other Respiratory Family Hisory: Dad Neurological: Reports: Neuropathy, Diabetic Other Neurological Family History: Dad Psychiatric: Reports: Anxiety Other Psychiatric Family History: Dad Endocrine/Metabolic: Reports: Diabetes, type II Other Endocrine/Metabolic Family History: Dad Oncologic: Reports: Liver Other Oncologic Family History: mother - Tobacco Use Smoking Status *Q: Never Smoker Second Hand Smoke Exposure: No - Caffeine Use Caffeine Use: Reports: Coffee, Soda - Alcohol Use Days Per Week of Alcohol Use: 0 - Recreational Drug Use Recreational Drug Use: No - Living Situation & Occupation Living situation: Reports: , with Family Occupation: Employed ED ROS GENERAL - Review of Systems Review Of Systems: ROS reveals no pertinent complaints other than HPI. ED EXAM, GENERAL - Physical Exam Exam: See Below Exam Limited By: No Limitations General Appearance: Alert, WD/WN, No Apparent Distress Eye Exam: Bilateral Eye: Normal Inspection Ears: Normal External Exam, Normal Canal, Hearing Grossly Normal, Normal TMs Nose: Normal Inspection, Normal Mucosa, No Blood Throat/Mouth: Normal Inspection, Normal Lips, Normal Teeth, Normal Gums, Normal Oropharynx, Normal Voice, No Airway Compromise Head: Atraumatic, Normocephalic Neck: Normal Inspection, Supple, Non-Tender, Full Range of Motion Respiratory/Chest: No Respiratory Distress, Lungs Clear, Normal Breath Sounds, No Accessory Muscle Use, Chest Non-Tender Cardiovascular: Normal Peripheral Pulses, Regular Rate, Rhythm, No Edema, No Gallop, No JVD, No Murmur, No Rub GI/Abdominal: Other (bruising) (Female) Exam: Deferred Rectal (Female) Exam: Deferred Back Exam: Normal Inspection, Full Range of Motion, NT Extremities: Normal Inspection, Normal Range of Motion, Non-Tender, Normal Capillary Refill, No Pedal Edema Neurological: Alert, Oriented, CN II-XII Intact, Normal Cognition, Normal Gait, Normal Reflexes, No Motor/Sensory Deficits Psychiatric: Normal Affect, Normal Mood Skin Exam: Warm, Dry, Intact, Normal Color, No Rash Lymphatic: No Adenopathy Course - Vital Signs Last Recorded V/S: Last Vital Signs Temp 98.7 F 05/07/17 15:12 Pulse 108 H 05/07/17 15:12 Resp 16 05/07/17 15:12 BP 143/91 H 05/07/17 15:12 Pulse Ox 92 L 05/07/17 15:12 - Orders/Labs/Meds Labs: Laboratory Tests 05/07/17 05/07/17 05/07/17 Range/Units 15:55 15:55 15:55 WBC 9.0 (5.0-10.0) 10^3/uL RBC 4.38 (4.2-5.4) 10^6/uL Hgb 13.2 (12.0-16.0) g/dL Hct 41.1 (37.0-47.0) % MCV 93.8 (80-100) fL MCH 30.1 (27.0-34.0) pg MCHC 32.1 L (33.0-35.0) g/dL Plt Count 243 (150-450) 10^3/uL Neut % (Auto) 59.1 (42.2-75.2) % Lymph % (Auto) 24.6 (20.5-50.1) % [place]upe % (Auto) 8.9 H (2-8) % Eos % (Auto) 7.1 H (1.0-3.0) % Baso % (Auto) 0.3 (0.0-1.0) % PT 22.9 H (9.0-12.0) SEC INR 2.3 H (0.9-1.2) Sodium 133 L (135-145) mmol/L Potassium 3.9 (3.6-5.0) mmol/L Chloride 99 L (101-111) mmol/L Carbon Dioxide 28.0 (21.0-31.0) mmol/L Anion Gap 9.9 BUN 12 (7-18) mg/dL Creatinine 0.7 (0.6-1.3) mg/dL Est Cr Clr Drug Dosing 80.26 mL/min Estimated GFR (MDRD) > 60 BUN/Creatinine Ratio 17.14 Glucose 272 H (74-105) mg/dL Calcium 8.8 (8.4-10.2) mg/dl Total Bilirubin 0.3 (0.2-1.0) mg/dL AST 27 (10-42) IU/L ALT 21 (10-60) IU/L Alkaline Phosphatase 120 (42-121) IU/L Total Protein 7.1 (6.7-8.2) g/dl Albumin 3.6 (3.2-5.5) g/dl Globulin 3.5 Albumin/Globulin Ratio 1.03 - Re-Assessments/Exams Free Text/Narrative Re-Assessment/Exam: 05/10/17 07:16 Pt left prior to results returning. Patient was called by a technical staff engineer to inform her of her results. No instructions given at this time, other than to follow up with her primary care facility Departure - Departure Time of Disposition: 16:53 Disposition: Home, Self-Care 01 Condition: Good Clinical Impression: Worried well - Discharge Information Referrals: Chaz Davis MD [Primary Care Provider] - Forms: ED Department Discharge Additional Instructions: Follow up with your primary care facility this week.
== END 2017-05-07 17:00 | disposition home or self-care (01) ==
LOC: DL.ED 15:04
DX: Z71.1 Person with feared health complaint in whom no diagnosis is made (principal); I10 Essential (primary) hypertension; E11.40 Type 2 diabetes mellitus with diabetic neuropathy, unspecified; E78.00 Pure hypercholesterolemia, unspecified; Z88.1 Allergy status to other antibiotic agents; Z91.041 Radiographic dye allergy status; Z91.09 Other allergy status, other than to drugs and biological substances; Z79.4 Long term (current) use of insulin; Z79.82 Long term (current) use of aspirin; Z79.01 Long term (current) use of anticoagulants
CPT/HCPCS: 36415; 80053; 85025; 85610; 99282; 99283

== ENCOUNTER 2017-05-12 21:09 | Emergency (ER) | payer MEDICARE, MEDICAID ==
[2017-05-12 21:17] VITALS: BP 146/86
[2017-05-12] MEDS ORDERED: Acetaminophen/HYDROcodone 325-10 MG Tab PO ONE (22:42)
--- NOTE | 2017-05-12 22:48 | EDM.PDOC ---
ED HPI GENERAL MEDICAL PROBLEM - General Chief Complaint: Back Pain or Injury Stated Complaint: FELL,SIDE/BACK AND WRIST JACKIE, [id number] Time Seen by Provider: 05/12/17 21:50 Source of Information: Reports: Patient History Limitations: Reports: No Limitations - History of Present Illness INITIAL COMMENTS - FREE TEXT/NARRATIVE: This 51 yo female patient reports to the ED with right wrist and right rib pain. The patient reports she tripped at [facility] yesterday at about 1900 and has been in pain since the fall. The patient has not been seen by her primary care provider. Onset Date: 05/11/17 Onset Time: 19:00 Duration: Constant Location: Reports: Chest (right), Upper Extremity, Right (right wrist) Quality: Reports: Ache, Dull Severity: Severe Improves with: Reports: None Worsens with: Reports: None Context: Reports: Other Associated Symptoms: Reports: No Other Symptoms Right Middle Back Pain Score (Numeric/FACES): 10 Right Wrist Pain Score (Numeric/FACES): 4 - Related Data Allergies Allergy/AdvReac Type Severity Reaction Status Date / Time erythromycin base Allergy Hives Verified 05/12/17 21:18 [Erythromycin Base] Iodinated Contrast- Oral and Allergy Cannot Verified 05/12/17 21:18 IV Dye Remember [Iodinated Contrast Media - IV Dye] sulfamethoxazole Allergy Hives Verified 05/12/17 21:18 [From Bactrim] tramadol Allergy Rash Verified 05/12/17 21:18 trimethoprim [From Bactrim] Allergy Hives Verified 05/12/17 21:18 IVP dye Allergy Cannot Uncoded 05/12/17 21:18 Remember pollen Allergy Cannot Uncoded 05/12/17 21:18 Remember Home Meds: Home Meds Baclofen 10 mg PO DAILY 04/23/13 [History] DULoxetine [Cymbalta] 60 mg PO DAILY 04/23/13 [History] Insulin Aspart [NovoLOG] 30 units SQ TID PRN 04/23/13 [History] Insulin Detemir [Levemir] 90 units SQ BID 04/23/13 [History] Simvastatin 20 mg PO BEDTIME 04/23/13 [History] Verapamil HCl [Verapamil ER] 180 mg PO DAILY 04/23/13 [History] Albuterol [Ventolin HFA] 2 puff INH Q4H PRN 09/04/13 [History] Folic Acid 1 mg PO DAILY 09/04/13 [History] Multivitamin [Multi-Vitamin Daily] 1 tab PO DAILY 09/04/13 [History] Pantoprazole [ProTONIX] 40 mg PO DAILY 09/04/13 [History] Aspirin 325 mg PO DAILY 04/28/15 [History] Montelukast [Singulair] 10 mg PO BEDTIME 11/16/15 [History] Nortriptyline 50 mg PO BEDTIME 11/16/15 [History] Trospium Chloride 20 mg PO DAILY 11/16/15 [History] Ambrisentan [Letairis] 10 mg PO DAILY 07/10/16 [History] Cholecalciferol (Vitamin D3) [Vitamin D3] 400 units PO DAILY 07/10/16 [History] Fluticasone/Salmeterol [Advair Hfa 230-21 Mcg Inhaler] 2 puff IH BID 07/10/16 [ History] Letrozole 2.5 mg PO DAILY 07/10/16 [History] Loratadine [Allergy] 10 mg PO DAILY 07/10/16 [History] Pregabalin [Lyrica] 200 mg PO DAILY 07/10/16 [History] Sennosides/Docusate Sodium [Senna-Docusate Sodium] 2 each PO DAILY 07/10/16 [ History] Tadalafil [Adcirca] 20 mg PO DAILY 07/10/16 [History] Warfarin Sodium [Coumadin] 5 mg PO DAILY 10/01/16 [History] LORazepam [Ativan] 1 mg PO Q6HR PRN 05/07/17 [History] Past Medical History HEENT History: Reports: Impaired Vision, Other (See Below) Other HEENT History: wears glasses, sees a black spot in her right eye at times Cardiovascular History: Reports: Blood Clots/VTE/DVT, High Cholesterol, Hypertension, Other (See Below) Other Cardiovascular History: pulmonary hypertension Respiratory History: Reports: Asthma, Bronchitis, Recurrent, Sleep Apnea, Other (See Below) Other Respiratory History: Sleeps with 1/l N/C Gastrointestinal History: Reports: GERD Genitourinary History: Reports: Pyelonephritis, Urinary Incontinence, UTI, Recurrent, Other (See Below) Other Genitourinary History: Stress incontinence, kidney stones 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 Hematologic History: Reports: Folic Acid Other Hematologic History: antiphospholipid def. Immunologic History: Reports: None Other Immunologic History: on oral chemo Oncologic (Cancer) History: Reports: Breast Dermatologic History: Reports: Eczema - Infectious Disease History Infectious Disease History: Reports: MRSA Other Infectious Disease History: Patient states she has been cleared for the MRSA - Past Surgical History Head Surgeries/Procedures: Reports: None GI Surgical History: Reports: Cholecystectomy Female Surgical History: Reports: Breast Biopsy, Breast Implant, Breast Reconstruction, Hysterectomy, Mastectomy, Salpingo-Oophorectomy Endocrine Surgical History: Reports: Thyroid Biopsy Oncologic Surgical History: Reports: Mastectomy Other Oncologic Surgeries/Procedures: marina. with implants. Social & Family History - Family History Family Medical History: Noncontributory Cardiac: Reports: Hypertension, Stent Other Cardiac Family History: Dad Respiratory: Reports: Asthma, Sleep Apnea Other Respiratory Family Hisory: Dad Neurological: Reports: Neuropathy, Diabetic Other Neurological Family History: Dad Psychiatric: Reports: Anxiety Other Psychiatric Family History: Dad Endocrine/Metabolic: Reports: Diabetes, type II Other Endocrine/Metabolic Family History: Dad Oncologic: Reports: Liver Other Oncologic Family History: mother - Tobacco Use Smoking Status *Q: Never Smoker Second Hand Smoke Exposure: No - Caffeine Use Caffeine Use: Reports: Soda - Alcohol Use Days Per Week of Alcohol Use: 0 - Recreational Drug Use Recreational Drug Use: No - Living Situation & Occupation Living situation: Reports: , with Family Occupation: Employed ED ROS GENERAL - Review of Systems Review Of Systems: ROS reveals no pertinent complaints other than HPI. ED EXAM, GENERAL - Physical Exam Exam: See Below Exam Limited By: No Limitations General Appearance: Alert, WD/WN, No Apparent Distress Eye Exam: Bilateral Eye: EOMI, Normal Inspection, PERRL Ears: Normal External Exam, Normal Canal, Hearing Grossly Normal, Normal TMs Nose: Normal Inspection, Normal Mucosa, No Blood Throat/Mouth: Normal Inspection, Normal Lips, Normal Teeth, Normal Gums, Normal Oropharynx, Normal Voice, No Airway Compromise Head: Atraumatic, Normocephalic Neck: Normal Inspection, Supple, Non-Tender, Full Range of Motion Respiratory/Chest: No Respiratory Distress, Lungs Clear, Normal Breath Sounds, No Accessory Muscle Use, Other (right rib tenderness) Cardiovascular: Normal Peripheral Pulses, Regular Rate, Rhythm, No Edema, No Gallop, No JVD, No Murmur, No Rub GI/Abdominal: Normal Bowel Sounds, Soft, Non-Tender, No Organomegaly, No Distention, No Abnormal Bruit, No Mass (Female) Exam: Deferred Rectal (Female) Exam: Deferred Back Exam: Normal Inspection, Full Range of Motion, NT Extremities: Normal Capillary Refill, Other (right wrist pain) Neurological: Alert, Oriented, CN II-XII Intact, Normal Cognition, Normal Gait, Normal Reflexes, No Motor/Sensory Deficits Psychiatric: Normal Affect, Normal Mood Skin Exam: Warm, Dry, Intact, Normal Color, No Rash Lymphatic: No Adenopathy Course - Vital Signs Last Recorded V/S: Last Vital Signs Temp 35.5 C 05/12/17 21:16 Pulse 109 H 05/12/17 21:16 Resp 19 05/12/17 21:16 BP 146/86 H 05/12/17 21:16 Pulse Ox 94 L 05/12/17 21:16 - Orders/Labs/Meds Meds: Medications Discontinued Medications Generic Name Dose Route Start Last Admin Trade Name Freq PRN Reason Stop Dose Admin Hydrocodone Bitart/Acetaminophen 1 tab 05/12/17 22:42 05/12/17 22:48 [place] 325-10 Mg PO 05/12/17 22:43 1 tab ONETIME ONE Administration Departure - Departure Time of Disposition: 22:44 Disposition: Home, Self-Care 01 Condition: Fair Clinical Impression: Contusion of rib on right side Qualifiers: Encounter type: initial encounter Qualified Code(s): S20.211A - Contusion of right front wall of thorax, initial encounter Strain of right wrist Qualifiers: Encounter type: initial encounter Qualified Code(s): S66.911A - Strain of unspecified muscle, fascia and tendon at wrist and hand level, right hand, initial encounter - Discharge Information Instructions: Chest Contusion, [id number], Wrist Sprain Forms: ED Department Discharge Care Plan Goals: The patient was advised of the examination and x-ray results during the visit. The patient was given an oral dose of [place] while in the ED. The patient was discharged with a script for [place] () #6 to take 1 by mouth every 6 hours as needed for pain. If the patient has any additional symptoms or concerns, the patient should follow-up with her primary care facility or return to the ED.
== END 2017-05-12 22:52 | disposition home or self-care (01) ==
LOC: DL.ED 21:09
DX: S66.911A Strain of unspecified muscle, fascia and tendon at wrist and hand level, right hand, initial encounter (principal); S20.211A Contusion of right front wall of thorax, initial encounter; I10 Essential (primary) hypertension; E11.40 Type 2 diabetes mellitus with diabetic neuropathy, unspecified; E78.00 Pure hypercholesterolemia, unspecified; Z88.1 Allergy status to other antibiotic agents; Z88.5 Allergy status to narcotic agent; Z91.041 Radiographic dye allergy status; Z91.09 Other allergy status, other than to drugs and biological substances; Z79.4 Long term (current) use of insulin; Z79.82 Long term (current) use of aspirin; Z79.01 Long term (current) use of anticoagulants; W01.0XXA Fall on same level from slipping, tripping and stumbling without subsequent striking against object, initial encounter
CPT/HCPCS: 71100; 73110; 99283; A9270

== ENCOUNTER 2017-07-03 14:09 | Emergency (ER) | payer MEDICARE, MEDICAID ==
[2017-07-03 15:00] LABS: CHLORIDE,CL 100 mmol/L (101-111); SODIUM,NA 135 mmol/L (135-145)
--- NOTE | 2017-07-03 15:04 | CT ---
Clinical history: 52-year-old female new-onset left-sided weakness. Scan technique: Volume acquisition of data emergency unenhanced CT scan of the head and brain obtaine d with the patient was lying supine on the Siemens multi slice scanner [place], [place]. All data archived in the PACS system for storage and study (bone/brain windows). Interpretation: 1. Hyperostosis frontalis interna. Symmetric clear pneumatization of the paranasal and mastoid sinuse s. 2. Minimal atrophy but symmetric pattern with underlying mirror-image normal ventricular system. 3. No supratentorial or posterior fossa mass lesion. 4. *Subtle edema right parietal hemisphere (effacement of the sulci) suggesting probable underlying i schemic change but no appreciable edema or shift of the midline ventricular system. Isolated type inf arct right parietal lobe present on 16 November 2015. 5. No other focal areas of ischemia or signs of acute intracerebral/intraventricular/subarachnoid ble ed. 6. No abnormal extracerebral/intracranial epidural or subdural hematoma. 7. Cerebellum and brainstem unremarkable. CONCLUSION: Probable ischemic change (cerebral edema) right cerebral hemisphere. No sign of acute int racranial bleed.
--- NOTE | 2017-07-03 16:00 | EDM.PDOC ---
ED HPI GENERAL MEDICAL PROBLEM - General Chief Complaint: Neurological Problem Stated Complaint: IN BY AMBULANCE Time Seen by Provider: 07/03/17 14:15 Source of Information: Reports: Patient, EMS, Family, Old Records, RN, RN Notes Reviewed History Limitations: Reports: No Limitations - History of Present Illness INITIAL COMMENTS - FREE TEXT/NARRATIVE: Art is a 52yo F that presents per EMS due to left sided weakness that started around 1230 today. Her significant other reports that he noticed that she had a left sided facial droop last night around 1800. He reports that her symptoms resolved completely before she had went to bed last night. He reports that she was sitting up in the chair at 1230 when he noticed the left side of her face started drooping again. She reports that she had tried to get out of the chair shortly after to get up to the bathroom and was having difficulty moving her left leg. She denies chest pain, shortness of breath, nausea, vomiting, or abd pain. She relates that she has a clotting disorder in which she is on Coumadin. Denies pain, dizziness, or changes in her vision. Onset: Today Onset Time: 12:30 Duration: Hour(s): Location: Reports: Head - Related Data Allergies Allergy/AdvReac Type Severity Reaction Status Date / Time erythromycin base Allergy Hives Verified 05/12/17 21:18 [Erythromycin Base] Iodinated Contrast- Oral and Allergy Cannot Verified 05/12/17 21:18 IV Dye Remember [Iodinated Contrast Media - IV Dye] sulfamethoxazole Allergy Hives Verified 05/12/17 21:18 [From Bactrim] tramadol Allergy Rash Verified 05/12/17 21:18 trimethoprim [From Bactrim] Allergy Hives Verified 05/12/17 21:18 IVP dye Allergy Cannot Uncoded 05/12/17 21:18 Remember pollen Allergy Cannot Uncoded 05/12/17 21:18 Remember Home Meds: Home Meds Baclofen 10 mg PO DAILY 04/23/13 [History] DULoxetine [Cymbalta] 60 mg PO DAILY 04/23/13 [History] Insulin Aspart [NovoLOG] 30 units SQ TID PRN 04/23/13 [History] Insulin Detemir [Levemir] 90 units SQ BID 04/23/13 [History] Simvastatin 20 mg PO BEDTIME 04/23/13 [History] Verapamil HCl [Verapamil ER] 180 mg PO DAILY 04/23/13 [History] Albuterol [Ventolin HFA] 2 puff INH Q4H PRN 09/04/13 [History] Folic Acid 1 mg PO DAILY 09/04/13 [History] Multivitamin [Multi-Vitamin Daily] 1 tab PO DAILY 09/04/13 [History] Pantoprazole [ProTONIX] 40 mg PO DAILY 09/04/13 [History] Aspirin 325 mg PO DAILY 04/28/15 [History] Montelukast [Singulair] 10 mg PO BEDTIME 11/16/15 [History] Nortriptyline 50 mg PO BEDTIME 11/16/15 [History] Trospium Chloride 20 mg PO DAILY 11/16/15 [History] Ambrisentan [Letairis] 10 mg PO DAILY 07/10/16 [History] Cholecalciferol (Vitamin D3) [Vitamin D3] 400 units PO DAILY 07/10/16 [History] Fluticasone/Salmeterol [Advair Hfa 230-21 Mcg Inhaler] 2 puff IH BID 07/10/16 [ History] Letrozole 2.5 mg PO DAILY 07/10/16 [History] Loratadine [Allergy] 10 mg PO DAILY 07/10/16 [History] Pregabalin [Lyrica] 200 mg PO DAILY 07/10/16 [History] Sennosides/Docusate Sodium [Senna-Docusate Sodium] 2 each PO DAILY 07/10/16 [ History] Tadalafil [Adcirca] 20 mg PO DAILY 07/10/16 [History] Warfarin Sodium [Coumadin] 5 mg PO DAILY 10/01/16 [History] LORazepam [Ativan] 1 mg PO Q6HR PRN 05/07/17 [History] Past Medical History HEENT History: Reports: Impaired Vision, Other (See Below) Other HEENT History: wears glasses, sees a black spot in her right eye at times Cardiovascular History: Reports: Blood Clots/VTE/DVT, High Cholesterol, Hypertension, Other (See Below) Other Cardiovascular History: pulmonary hypertension Respiratory History: Reports: Asthma, Bronchitis, Recurrent, Sleep Apnea, Other (See Below) Other Respiratory History: Sleeps with 1/l N/C Gastrointestinal History: Reports: GERD Genitourinary History: Reports: Pyelonephritis, Urinary Incontinence, UTI, Recurrent, Other (See Below) Other Genitourinary History: Stress incontinence, kidney stones [employer] History: Reports: 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 Hematologic History: Reports: Folic Acid Other Hematologic History: antiphospholipid def. Immunologic History: Reports: None Other Immunologic History: on oral chemo Oncologic (Cancer) History: Reports: Breast Dermatologic History: Reports: Eczema - Infectious Disease History Infectious Disease History: Reports: MRSA Other Infectious Disease History: Patient states she has been cleared for the MRSA - Past Surgical History Head Surgeries/Procedures: Reports: None GI Surgical History: Reports: Cholecystectomy Female Surgical History: Reports: Breast Biopsy, Breast Implant, Breast Reconstruction, Hysterectomy, Mastectomy, Salpingo-Oophorectomy Endocrine Surgical History: Reports: Thyroid Biopsy Oncologic Surgical History: Reports: Mastectomy Other Oncologic Surgeries/Procedures: marina. with implants. Social & Family History - Family History Family Medical History: Noncontributory Cardiac: Reports: Hypertension, Stent Other Cardiac Family History: Dad Respiratory: Reports: Asthma, Sleep Apnea Other Respiratory Family Hisory: Dad Neurological: Reports: Neuropathy, Diabetic Other Neurological Family History: Dad Psychiatric: Reports: Anxiety Other Psychiatric Family History: Dad Endocrine/Metabolic: Reports: Diabetes, type II Other Endocrine/Metabolic Family History: Dad Oncologic: Reports: Liver Other Oncologic Family History: mother - Tobacco Use Smoking Status *Q: Never Smoker Second Hand Smoke Exposure: No - Caffeine Use Caffeine Use: Reports: Soda - Alcohol Use Days Per Week of Alcohol Use: 0 - Recreational Drug Use Recreational Drug Use: No - Living Situation & Occupation Living situation: Reports: , with Family Occupation: Employed ED ROS GENERAL - Review of Systems Review Of Systems: ROS reveals no pertinent complaints other than HPI. - Physical Exam Exam: See Below Exam Limited By: No Limitations General Appearance: Alert, WD/WN, No Apparent Distress Eye Exam: Bilateral Eye: EOMI, Vision Changes Ears: Normal External Exam, Normal Canal, Hearing Grossly Normal, Normal TMs Nose: Normal Inspection, Normal Mucosa, No Blood Throat/Mouth: Normal Inspection, Normal Teeth, Normal Gums, Normal Oropharynx, Normal Voice, No Airway Compromise, Other (Droop noted to left side of face. ) Head Exam: Atraumatic, Normocephalic Neck: Normal Inspection, Supple, Non-Tender, Full Range of Motion Respiratory/Chest: No Respiratory Distress, Lungs Clear, Normal Breath Sounds, No Accessory Muscle Use, Chest Non-Tender Cardiovascular: Normal Peripheral Pulses, No Edema, No Gallop, No JVD, No Murmur , No Rub, Tachycardia GI/Abdominal: Normal Bowel Sounds, Soft, Non-Tender, No Organomegaly, No Distention, No Abnormal Bruit, No Mass (Female) Exam: Deferred Rectal (Female) Exam: Deferred Neuro Exam (Abbreviated): Alert, Oriented, Normal Cognition, Abnormal Gait (NIH- 6 on arrival. Patient has a mild pronator drift to the left arm. Weakness noted to her left leg. Hand grasp is slightly weaker on her right vs her left. Decreased sensation to her face. ) Back Exam: Normal Inspection, Full Range of Motion, NT Extremities: Normal Inspection, Non-Tender, No Pedal Edema, Normal Capillary Refill, Other (Weakness noted to left side left hand and left leg) Psychiatric: Normal Affect, Normal Mood Skin Exam: Warm, Dry, Intact, Normal Color, No Rash EKG INTERPRETATION EKG Date: 07/03/17 Time: 14:37 Rhythm: Other (Sinus tachycardia) Rate (Beats/Min): 117 [place]: Normal P-Wave: Present QRS: Normal ST-T: Normal QT: Normal Course - Orders/Labs/Meds Orders: Active Orders 24 hr Category Date Time Status EKG Documentation Completion [RC] URGENT Care 07/03/17 14:18 Active UA W/MICROSCOPIC [URIN] Stat Lab 07/03/17 15:35 Received Labs: Laboratory Tests 07/03/17 07/03/17 07/03/17 Range/Units 14:26 14:26 14:26 WBC 8.2 (5.0-10.0) 10^3/uL RBC 4.31 (4.2-5.4) 10^6/uL Hgb 12.9 (12.0-16.0) g/dL Hct 40.4 (37.0-47.0) % MCV 93.7 (80-100) fL MCH 29.9 (27.0-34.0) pg MCHC 31.9 L (33.0-35.0) g/dL Plt Count 252 (150-450) 10^3/uL Neut % (Auto) 58.4 (42.2-75.2) % Lymph % (Auto) 25.2 (20.5-50.1) % [place] % (Auto) 9.0 H (2-8) % Eos % (Auto) 7.2 H (1.0-3.0) % Baso % (Auto) 0.2 (0.0-1.0) % PT 32.5 H D (9.0-12.0) SEC INR 3.2 H (0.9-1.2) Sodium 135 (135-145) mmol/L Potassium 4.2 (3.6-5.0) mmol/L Chloride 100 L (101-111) mmol/L Carbon Dioxide 26.0 (21.0-31.0) mmol/L Anion Gap 13.2 BUN 9 (7-18) mg/dL Creatinine 0.7 (0.6-1.3) mg/dL Est Cr Clr Drug Dosing TNP Estimated GFR (MDRD) > 60 BUN/Creatinine Ratio 12.85 Glucose 253 H (74-105) mg/dL POC Glucose (70-105) mg/dl Calcium 8.8 (8.4-10.2) mg/dl Total Bilirubin 0.4 (0.2-1.0) mg/dL AST 33 (10-42) IU/L ALT 18 (10-60) IU/L Alkaline Phosphatase 117 (42-121) IU/L Troponin I < 0.02 (0.00-0.02) ng/ml Total Protein 6.9 (6.7-8.2) g/dl Albumin 3.4 (3.2-5.5) g/dl Globulin 3.5 Albumin/Globulin Ratio 0.97 03/26/18 Range/Units 14:57 WBC (5.0-10.0) 10^3/uL RBC (4.2-5.4) 10^6/uL Hgb (12.0-16.0) g/dL Hct (37.0-47.0) % MCV (80-100) fL MCH (27.0-34.0) pg MCHC (33.0-35.0) g/dL Plt Count (150-450) 10^3/uL Neut % (Auto) (42.2-75.2) % Lymph % (Auto) (20.5-50.1) % [place] % (Auto) (2-8) % Eos % (Auto) (1.0-3.0) % Baso % (Auto) (0.0-1.0) % PT (9.0-12.0) SEC INR (0.9-1.2) Sodium (135-145) mmol/L Potassium (3.6-5.0) mmol/L Chloride (101-111) mmol/L Carbon Dioxide (21.0-31.0) mmol/L Anion Gap BUN (7-18) mg/dL Creatinine (0.6-1.3) mg/dL Est Cr Clr Drug Dosing Estimated GFR (MDRD) BUN/Creatinine Ratio Glucose (74-105) mg/dL POC Glucose 205 H (70-105) mg/dl Calcium (8.4-10.2) mg/dl Total Bilirubin (0.2-1.0) mg/dL AST (10-42) IU/L ALT (10-60) IU/L Alkaline Phosphatase (42-121) IU/L Troponin I (0.00-0.02) ng/ml Total Protein (6.7-8.2) g/dl Albumin (3.2-5.5) g/dl Globulin Albumin/Globulin Ratio Departure - Departure Time of Disposition: 15:15 Disposition: DC/Tfer to Acute Hospital 02 Condition: Fair Clinical Impression: Left-sided weakness - Discharge Information Forms: Interfacility Transfer [facility] Care Plan Goals: [address] Gandhi at [facility]. Recommended to wait for her INR to come back and consider lytics. Further recommended calling [facility] to discuss case to determine if other interventions would be appropriate. 1530 Called and discussed case with Dr Umana. Recommend to send patient down for further evaluation. Said to not give lytics at this time. HBO at 30 degrees and IV fluids at 125/hr
[2017-07-03 16:20] VITALS: BP 125/63
--- NOTE | 2017-07-05 16:21 | EKG ---
07/03/2017 - MYRIAM RANDHAWA - TIME: 3647. EKG shows sinus tachycardia rate of 105 per minute. [facility] /[id number]
== END 2017-07-03 16:35 ==
LOC: DL.ED 14:09
DX: R29.810 Facial weakness (principal); E78.00 Pure hypercholesterolemia, unspecified; I10 Essential (primary) hypertension; E11.9 Type 2 diabetes mellitus without complications; Z88.1 Allergy status to other antibiotic agents; Z91.041 Radiographic dye allergy status; Z88.2 Allergy status to sulfonamides; Z91.048 Other nonmedicinal substance allergy status; Z79.899 Other long term (current) drug therapy; Z79.4 Long term (current) use of insulin; Z79.01 Long term (current) use of anticoagulants
CPT/HCPCS: 36415; 70450; 80053; 81001; 82962; 84484; 85025; 85610; 93005; 93010; 99285

== ENCOUNTER 2017-07-24 15:49 | Emergency (ER) | payer MEDICARE, MEDICAID ==
[2017-07-24 16:55] LABS: ANION GAP 11.2; CHLORIDE,CL 99 mmol/L (101-111); SODIUM,NA 133 mmol/L (135-145)
[2017-07-24 16:59] VITALS: BP 118/52
--- NOTE | 2017-07-24 18:18 | EDM.PDOC ---
ED HPI GENERAL MEDICAL PROBLEM - General Chief Complaint: General Stated Complaint: IN BY AMBULANCE Time Seen by Provider: 07/24/17 17:40 Source of Information: Reports: Patient History Limitations: Reports: No Limitations - History of Present Illness INITIAL COMMENTS - FREE TEXT/NARRATIVE: This 52 yo female patient reports to the ED today reporting that she started to notice her heart going very fast throughout today. The patient reports that she has not used her Dulera for quite a while, but remembered it this morning. The patient reports her heart symptoms started today. The patient reports she has also been noticing elevated blood sugar levels. The patient has been attempting to lower her blood sugar levels, but went to [facility] with her father. The patient reports increased anxiety due to her father's cancer diagnosis. Onset: Today Duration: Hour(s):, Constant, Getting Worse Location: Reports: Chest Quality: Reports: Other Severity: Moderate Improves with: Reports: None Worsens with: Reports: None Associated Symptoms: Reports: No Other Symptoms - Related Data Allergies Allergy/AdvReac Type Severity Reaction Status Date / Time erythromycin base Allergy Hives Verified 07/24/17 15:56 [Erythromycin Base] Iodinated Contrast- Oral and Allergy Cannot Verified 07/24/17 15:56 IV Dye Remember [Iodinated Contrast Media - IV Dye] sulfamethoxazole Allergy Hives Verified 07/24/17 15:56 [From Bactrim] tramadol Allergy Rash Verified 07/24/17 15:56 trimethoprim [From Bactrim] Allergy Hives Verified 07/24/17 15:56 IVP dye Allergy Cannot Uncoded 05/12/17 21:18 Remember pollen Allergy Cannot Uncoded 05/12/17 21:18 Remember Home Meds: Home Meds Baclofen 10 mg PO DAILY 04/23/13 [History] DULoxetine [Cymbalta] 60 mg PO DAILY 04/23/13 [History] Insulin Aspart [NovoLOG] 40 units SQ TID PRN 04/23/13 [History] Insulin Detemir [Levemir] 90 units SQ BID 04/23/13 [History] Simvastatin 20 mg PO BEDTIME 04/23/13 [History] Verapamil HCl [Verapamil ER] 180 mg PO DAILY 04/23/13 [History] Albuterol [Ventolin HFA] 2 puff INH Q4H PRN 09/04/13 [History] Folic Acid 1 mg PO DAILY 09/04/13 [History] Multivitamin [Multi-Vitamin Daily] 1 tab PO DAILY 09/04/13 [History] Pantoprazole [ProTONIX] 40 mg PO DAILY 09/04/13 [History] Aspirin 325 mg PO DAILY 04/28/15 [History] Montelukast [Singulair] 10 mg PO BEDTIME 11/16/15 [History] Nortriptyline 50 mg PO BEDTIME 11/16/15 [History] Trospium Chloride 20 mg PO DAILY 11/16/15 [History] Ambrisentan [Letairis] 10 mg PO DAILY 07/10/16 [History] Cholecalciferol (Vitamin D3) [Vitamin D3] 400 units PO DAILY 07/10/16 [History] Fluticasone/Salmeterol [Advair Hfa 230-21 Mcg Inhaler] 2 puff IH BID PRN [History] Letrozole 2.5 mg PO DAILY 07/10/16 [History] Loratadine [Allergy] 10 mg PO DAILY 07/10/16 [History] Pregabalin [Lyrica] 200 mg PO DAILY 07/10/16 [History] Sennosides/Docusate Sodium [Senna-Docusate Sodium] 2 each PO DAILY 07/10/16 [ History] Tadalafil [Adcirca] 20 mg PO DAILY 07/10/16 [History] Warfarin Sodium [Coumadin] 5 mg PO DAILY 10/01/16 [History] LORazepam [Ativan] 1 mg PO Q6HR PRN 05/07/17 [History] Past Medical History HEENT History: Reports: Impaired Vision, Other (See Below) Other HEENT History: wears glasses, sees a black spot in her right eye at times Cardiovascular History: Reports: Blood Clots/VTE/DVT, High Cholesterol, Hypertension, Other (See Below) Other Cardiovascular History: pulmonary hypertension Respiratory History: Reports: Asthma, Bronchitis, Recurrent, Sleep Apnea, Other (See Below) Other Respiratory History: Sleeps with 1/l N/C Gastrointestinal History: Reports: GERD Genitourinary History: Reports: Pyelonephritis, Urinary Incontinence, UTI, Recurrent, Other (See Below) Other Genitourinary History: Stress incontinence, kidney stones [employer] History: Reports: 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 Hematologic History: Reports: Folic Acid Other Hematologic History: antiphospholipid def. Immunologic History: Reports: None Other Immunologic History: on oral chemo Oncologic (Cancer) History: Reports: Breast Dermatologic History: Reports: Eczema - Infectious Disease History Infectious Disease History: Reports: MRSA Other Infectious Disease History: Patient states she has been cleared for the MRSA - Past Surgical History Head Surgeries/Procedures: Reports: None GI Surgical History: Reports: Cholecystectomy Female Surgical History: Reports: Breast Biopsy, Breast Implant, Breast Reconstruction, Hysterectomy, Mastectomy, Salpingo-Oophorectomy Endocrine Surgical History: Reports: Thyroid Biopsy Oncologic Surgical History: Reports: Mastectomy Other Oncologic Surgeries/Procedures: marina. with implants. Social & Family History - Family History Family Medical History: Noncontributory Cardiac: Reports: Hypertension, Stent Other Cardiac Family History: Dad Respiratory: Reports: Asthma, Sleep Apnea Other Respiratory Family Hisory: Dad Neurological: Reports: Neuropathy, Diabetic Other Neurological Family History: Dad Psychiatric: Reports: Anxiety Other Psychiatric Family History: Dad Endocrine/Metabolic: Reports: Diabetes, type II Other Endocrine/Metabolic Family History: Dad Oncologic: Reports: Liver Other Oncologic Family History: mother - Tobacco Use Smoking Status *Q: Never Smoker Second Hand Smoke Exposure: No - Caffeine Use Caffeine Use: Reports: Coffee, Soda - Alcohol Use Days Per Week of Alcohol Use: 0 - Recreational Drug Use Recreational Drug Use: No - Living Situation & Occupation Living situation: Reports: , with Family Occupation: Employed ED ROS GENERAL - Review of Systems Review Of Systems: ROS reveals no pertinent complaints other than HPI. ED EXAM, GENERAL - Physical Exam Exam: See Below Exam Limited By: No Limitations General Appearance: Alert, WD/WN, Moderate Distress Eye Exam: Bilateral Eye: EOMI, Normal Inspection, PERRL Ears: Normal External Exam, Normal Canal, Hearing Grossly Normal, Normal TMs Nose: Normal Inspection, Normal Mucosa, No Blood Throat/Mouth: Normal Inspection, Normal Lips, Normal Teeth, Normal Gums, Normal Oropharynx, Normal Voice, No Airway Compromise Head: Atraumatic, Normocephalic Neck: Normal Inspection, Supple, Non-Tender, Full Range of Motion Respiratory/Chest: No Respiratory Distress, Lungs Clear, Normal Breath Sounds, No Accessory Muscle Use, Chest Non-Tender Cardiovascular: Normal Peripheral Pulses, Regular Rate, Rhythm, No Edema, No Gallop, No JVD, No Murmur, No Rub GI/Abdominal: Normal Bowel Sounds, Soft, Non-Tender, No Organomegaly, No Distention, No Abnormal Bruit, No Mass, Other (obese) (Female) Exam: Deferred Rectal (Female) Exam: Deferred Back Exam: Normal Inspection, Full Range of Motion, NT Extremities: Normal Inspection, Normal Range of Motion, Non-Tender, Normal Capillary Refill, No Pedal Edema Neurological: Alert, Oriented, CN II-XII Intact, Normal Cognition, Normal Gait, Normal Reflexes, No Motor/Sensory Deficits Psychiatric: Anxious, Depressed Mood Skin Exam: Warm, Dry, Intact, Normal Color, No Rash Lymphatic: No Adenopathy Course - Vital Signs Last Recorded V/S: Last Vital Signs Temp 37.2 C 07/24/17 15:57 Pulse 109 H 07/24/17 16:57 Resp 20 07/24/17 16:57 BP 118/52 L 07/24/17 16:57 Pulse Ox 93 L 07/24/17 16:57 - Orders/Labs/Meds Orders: Active Orders 24 hr Category Date Time Status EKG Documentation Completion [RC] URGENT Care 07/24/17 16:02 Ordered DRUG SCREEN URINE BIORAD [URCHEM] Stat Lab 07/24/17 15:58 Ordered UA W/MICROSCOPIC [URIN] Stat Lab 07/24/17 16:00 Ordered Labs: Laboratory Tests 07/24/17 07/24/17 07/24/17 Range/Units 15:50 15:50 16:20 WBC (5.0-10.0) 10^3/uL RBC (4.2-5.4) 10^6/uL Hgb (12.0-16.0) g/dL Hct (37.0-47.0) % MCV (80-100) fL MCH (27.0-34.0) pg MCHC (33.0-35.0) g/dL Plt Count (150-450) 10^3/uL Neut % (Auto) (42.2-75.2) % Lymph % (Auto) (20.5-50.1) % Camp % (Auto) (2-8) % Eos % (Auto) (1.0-3.0) % Baso % (Auto) (0.0-1.0) % Sodium 133 L (135-145) mmol/L Potassium 4.2 (3.6-5.0) mmol/L Chloride 99 L (101-111) mmol/L Carbon Dioxide 27.0 (21.0-31.0) mmol/L Anion Gap 11.2 BUN 10 (7-18) mg/dL Creatinine 0.8 (0.6-1.3) mg/dL Est Cr Clr Drug Dosing 69.42 mL/min Estimated GFR (MDRD) > 60 BUN/Creatinine Ratio 12.50 Glucose 390 H (74-105) mg/dL Calcium 8.5 (8.4-10.2) mg/dl Total Bilirubin 0.4 (0.2-1.0) mg/dL AST 27 (10-42) IU/L ALT 19 (10-60) IU/L Alkaline Phosphatase 108 (42-121) IU/L Troponin I < 0.02 (0.00-0.02) ng/ml Total Protein 6.5 L (6.7-8.2) g/dl Albumin 3.2 (3.2-5.5) g/dl Globulin 3.3 Albumin/Globulin Ratio 0.97 Urine Color Yellow (YELLOW) Urine Appearance Clear (CLEAR) Urine pH 6.5 (5.0-9.0) Ur Specific [place] 1.010 (1.005-1.030) Urine Protein Negative (NEGATIVE) Urine Glucose (UA) 500 H (NEGATIVE) Urine Ketones Negative (NEGATIVE) Urine Occult Blood Negative (NEGATIVE) Urine Nitrite Negative (NEGATIVE) Urine Bilirubin Negative (NEGATIVE) Urine Urobilinogen 0.2 (0.2-1.0) mg/dL Ur Leukocyte Esterase Negative (NEGATIVE) Urine RBC Not seen /HPF Urine WBC 0-5 (0-5/HPF) /HPF Ur Epithelial Cells Few /HPF Urine Bacteria Rare (0-FEW/HPF) /HPF Urine Opiates Screen Negative (NEGATIVE) Ur Oxycodone Screen Negative (NEGATIVE) Urine Methadone Screen Negative (NEGATIVE) Ur Barbiturates Screen Negative (NEGATIVE) U Tricyclic Antidepress Positive H (NEGATIVE) Ur Phencyclidine Scrn Negative (NEGATIVE) Ur Amphetamine Screen Negative (NEGATIVE) U Methamphetamines Scrn Negative (NEGATIVE) Urine MDMA Screen Negative (NEGATIVE) U Benzodiazepines Scrn Positive H (NEGATIVE) Urine Cocaine Screen Negative (NEGATIVE) U Marijuana (THC) Screen Negative (NEGATIVE) 07/24/17 Range/Units 16:20 WBC 7.3 (5.0-10.0) 10^3/uL RBC 4.13 L (4.2-5.4) 10^6/uL Hgb 12.5 (12.0-16.0) g/dL Hct 39.1 (37.0-47.0) % MCV 94.7 (80-100) fL MCH 30.3 (27.0-34.0) pg MCHC 32.0 L (33.0-35.0) g/dL Plt Count 212 (150-450) 10^3/uL Neut % (Auto) 59.1 (42.2-75.2) % Lymph % (Auto) 24.8 (20.5-50.1) % Camp % (Auto) 10.8 H (2-8) % Eos % (Auto) 4.9 H (1.0-3.0) % Baso % (Auto) 0.4 (0.0-1.0) % Sodium (135-145) mmol/L Potassium (3.6-5.0) mmol/L Chloride (101-111) mmol/L Carbon Dioxide (21.0-31.0) mmol/L Anion Gap BUN (7-18) mg/dL Creatinine (0.6-1.3) mg/dL Est Cr Clr Drug Dosing mL/min Estimated GFR (MDRD) BUN/Creatinine Ratio Glucose (74-105) mg/dL Calcium (8.4-10.2) mg/dl Total Bilirubin (0.2-1.0) mg/dL AST (10-42) IU/L ALT (10-60) IU/L Alkaline Phosphatase (42-121) IU/L Troponin I (0.00-0.02) ng/ml Total Protein (6.7-8.2) g/dl Albumin (3.2-5.5) g/dl Globulin Albumin/Globulin Ratio Urine Color (YELLOW) Urine Appearance (CLEAR) Urine pH (5.0-9.0) Ur Specific [place] (1.005-1.030) Urine Protein (NEGATIVE) Urine Glucose (UA) (NEGATIVE) Urine Ketones (NEGATIVE) Urine Occult Blood (NEGATIVE) Urine Nitrite (NEGATIVE) Urine Bilirubin (NEGATIVE) Urine Urobilinogen (0.2-1.0) mg/dL Ur Leukocyte Esterase (NEGATIVE) Urine RBC /HPF Urine WBC (0-5/HPF) /HPF Ur Epithelial Cells /HPF Urine Bacteria (0-FEW/HPF) /HPF Urine Opiates Screen (NEGATIVE) Ur Oxycodone Screen (NEGATIVE) Urine Methadone Screen (NEGATIVE) Ur Barbiturates Screen (NEGATIVE) U Tricyclic Antidepress (NEGATIVE) Ur Phencyclidine Scrn (NEGATIVE) Ur Amphetamine Screen (NEGATIVE) U Methamphetamines Scrn (NEGATIVE) Urine MDMA Screen (NEGATIVE) U Benzodiazepines Scrn (NEGATIVE) Urine Cocaine Screen (NEGATIVE) U Marijuana (THC) Screen (NEGATIVE) Departure - Departure Time of Disposition: 18:19 Disposition: Home, Self-Care 01 Condition: Fair Clinical Impression: Anxiety about health, Anxiety - Discharge Information Care Plan Goals: The patient was advised of the examination and lab results during the visit. The patient was encouraged to follow-up with her primary care facility. The patient should continue on her current medications as prescribed. If the patient has any additional symptoms or concerns, the patient should follow-up with her primary care facility or return to the emergency department. - My Orders Last 24 Hours: My Active Orders 07/24/17 15:58 DRUG SCREEN URINE BIORAD [URCHEM] Stat 07/24/17 16:00 UA W/MICROSCOPIC [URIN] Stat 07/24/17 16:02 EKG Documentation Completion [RC] URGENT - Assessment/Plan Last 24 Hours: My Active Orders 07/24/17 15:58 DRUG SCREEN URINE BIORAD [URCHEM] Stat 07/24/17 16:00 UA W/MICROSCOPIC [URIN] Stat 07/24/17 16:02 EKG Documentation Completion [RC] URGENT
--- NOTE | 2017-07-25 18:22 | EKG ---
07/24/2017 - MYRIAM RANDHAWA I reviewed the EKG and agree with the machine's reading. [facility] /[id number]
== END 2017-07-24 18:28 | disposition home or self-care (01) ==
LOC: DL.ED 15:49
DX: F41.9 Anxiety disorder, unspecified (principal); E78.00 Pure hypercholesterolemia, unspecified; I10 Essential (primary) hypertension; E11.40 Type 2 diabetes mellitus with diabetic neuropathy, unspecified; Z88.1 Allergy status to other antibiotic agents; Z91.041 Radiographic dye allergy status; Z88.2 Allergy status to sulfonamides; Z79.899 Other long term (current) drug therapy; Z79.4 Long term (current) use of insulin; Z79.82 Long term (current) use of aspirin; Z79.01 Long term (current) use of anticoagulants
CPT/HCPCS: 36415; 80053; 80305; 81001; 84484; 85025; 93005; 93010; 99283; 99285

== ENCOUNTER 2017-09-15 05:17 | Day surgery (SDC) | payer MEDICARE, MEDICAID ==
[2017-09-15] MEDS ORDERED: Midazolam 1 MG/ML 2 ML SDV IV ONE ×3 (05:18→06:33)
[2017-09-15] MEDS ORDERED: fentaNYL 100 MCG/2 ML SDV IV ONE ×3 (05:18→06:31)
[2017-09-15] MEDS ORDERED: Sodium Chloride 0.9% 10 ML Syringe FLUSH PRN (06:00)
[2017-09-15] MEDS ORDERED: Dextrose 5%-0.45% NaCl 1,000 ML IV SCH (06:00)
[2017-09-15] MEDS ORDERED: fentaNYL 100 MCG/2 ML SDV ONE (06:14)
[2017-09-15] MEDS ORDERED: Midazolam 1 MG/ML 2 ML SDV ONE (06:14)
--- NOTE | 2017-09-15 09:39 | OR ---
DATE: 09/15/2017 PROCEDURES: Esophagogastroduodenoscopy and multiple pinch biopsies. INSTRUMENT USED: GIF-H180 Olympus video panendoscope. PREMEDICATIONS: No oral topical anesthesia used. Fentanyl 100 mcg intravenous, Versed 2 mg intravenous. Nasal O2 cannula. The procedure was done under pulse oximetry, BP recording, and monitor tech. INDICATION: The patient with longstanding heartburn and recently detected FIT positive stools, multiple other significant illnesses, and on multiple medications. DESCRIPTION OF PROCEDURE: Esophagogastroduodenoscopy is performed for detection of any active erosive lesions. Manzano esophagus and/or malignancy also under consideration. H. pylori status to be determined. Small bowel biopsies to be obtained for celiac disease. Endoscopic hemostasis therapy if needed. The scope was passed with ease. Adequate visualization of the esophagus was made from proximal to distal areas. No upper esophageal lesions identified. No distal esophageal stricture. No uphill or downhill esophageal varices. No Karma-Tolliver tear. No evidence of erosive esophagitis by Cowlitz criteria. No esophageal polyp or tumor mass identified. Z-line was seen at around 39 cm distal to the oral verge, configuration consistent with grade 1 by ZAP classification. No proximal gastric varices noted. Gastric fundus examination by retroflexion showed no malignant lesions. Multiple diminutive gastric fundus polyps were noted. Multiple pinch biopsies were obtained and sent for histopathology. The examination of the gastric mucosa was extremely limited due to the presence of large amount of food material that could not be aspirated clear. No gastric ulcer, malignant mass, or vascular ectasia identified. Multiple pinch biopsies were taken from the gastric antrum and proximal body and sent for PyloriTek test for H. pylori and histopathology. Duodenal bulb showed no ulcer. Visualized second part of the duodenum was unremarkable. Multiple pinch biopsies, 4 in number, were taken from different areas of the second part of the duodenum; and tissues were also obtained from 9 o'clock and 12 o'clock positions of the duodenal bulb and sent for any histopathologic evidence of celiac disease. No bleeding was noted from any of the visualized areas at the completion of examination. IMPRESSION: 1. Diminutive gastric fundus polyps. 2. Gastroparesis diabeticorum. The patient tolerated the procedure well. [facility] /[id number]
[2017-09-15 10:27] VITALS: BP 125/68
--- NOTE | 2017-09-15 11:29 | LETTER ---
09/15/2017 Hailey Hawthorne MD [facility] [address] [place] [address] RE: SYDNEEARTIL : [address] Hawthorne: Ms. Art White had esophagogastroduodenoscopy done this morning and she tolerated the procedure well. I herewith send a copy of the endoscopy note and photographs for your review. Thank you. Sincerely, [facility] /[id number]
== END 2017-09-15 08:51 | disposition home or self-care (01) ==
LOC: DL.ENDO 05:17
PROVIDERS: ATTEND Internal Medicine Gastroenterology
DX: R12 Heartburn (principal); R19.5 Other fecal abnormalities; K29.50 Unspecified chronic gastritis without bleeding; E11.43 Type 2 diabetes mellitus with diabetic autonomic (poly)neuropathy; K31.84 Gastroparesis; K31.7 Polyp of stomach and duodenum; I27.20 Pulmonary hypertension, unspecified; I10 Essential (primary) hypertension; J45.909 Unspecified asthma, uncomplicated; E66.09 Other obesity due to excess calories; E78.00 Pure hypercholesterolemia, unspecified; G47.33 Obstructive sleep apnea (adult) (pediatric); D68.61 Antiphospholipid syndrome; F32.9 Major depressive disorder, single episode, unspecified; Z86.73 Personal history of transient ischemic attack (TIA), and cerebral infarction without residual deficits; Z79.82 Long term (current) use of aspirin; Z88.1 Allergy status to other antibiotic agents; Z88.5 Allergy status to narcotic agent; Z88.8 Allergy status to other drugs, medicaments and biological substances; Z91.041 Radiographic dye allergy status
CPT/HCPCS: 43239; 87077; J2250; J3010; J7042

== ENCOUNTER 2017-09-18 05:26 | Day surgery (SDC) | payer MEDICARE, MEDICAID ==
[2017-09-18] MEDS ORDERED: Midazolam 1 MG/ML 2 ML SDV IV ONE ×7 (05:27→06:50)
[2017-09-18] MEDS ORDERED: fentaNYL 100 MCG/2 ML SDV IV ONE ×5 (05:27→06:56)
[2017-09-18] MEDS ORDERED: Dextrose 5%-0.45% NaCl 1,000 ML IV SCH (06:10)
[2017-09-18] MEDS ORDERED: Midazolam 1 MG/ML 2 ML SDV ONE (06:17)
[2017-09-18] MEDS ORDERED: fentaNYL 100 MCG/2 ML SDV ONE (06:17)
[2017-09-18 11:28] VITALS: BP 108/70
--- NOTE | 2017-09-18 14:20 | OR ---
DATE: 09/18/2017 PROCEDURE: Total colonoscopy, NBI, and multiple cold snare polypectomies. INSTRUMENT USED: PCF-H180 Olympus video colonoscope. PREMEDICATIONS: Fentanyl 150 mcg intravenous, Versed 4 mg intravenous. Nasal O2 cannula. The procedure was done under pulse oximetry, BP recording, and residential monitor. INDICATION: The patient with Hemoccult positive stools. Colonoscopic examination is done for detection of any polypoid lesions and removal, endoscopic hemostasis therapy if needed. DESCRIPTION OF PROCEDURE: Initial rectal exam was unremarkable. Rigid anoscopy showed small internal hemorrhoids without bleeding from them. The colonoscope was passed up to the ileocecal area, photographs were taken of the normal- appearing cecum identified by double-bulged ileocecal folds. The examination was quite prolonged due to the tortuosity of the colon and presence of large amount of fecal material that had to be aspirated. The colon was found to be tortuous and redundant. No bleeding was noted from any of the visualized areas at the commencement of the examination. No stricture. No vascular ectasia. No large isolated ulcerations seen. No evidence of diffuse inflammatory bowel disease in the form of friability, contact bleeding, or ulcerations. Probing the proximal sides of folds and flexures, using adequate distention and clearing up the stool material, withdrawal of the scope was made. In the mid descending colon, polyps 3 mm sized and 5 mm sized were noted, photographs were taken of the larger polyp, NBI views were obtained, cold snare polypectomies were done, the tissues were retrieved and sent for histopathology. No bleeding was noted from any of the visualized areas at the completion of examination. IMPRESSION: 1. Internal hemorrhoids. 2. Colonic polyps. The patient tolerated the procedure well. [facility] /[id number]
--- NOTE | 2017-09-18 15:15 | LETTER ---
09/18/2017 Hailey Henry MD [facility] [address] [place] [address] RE: MYRIAM WHITEIL : [address] Hawthorne: Ms. Myriam White had colonoscopic examination done this morning and she tolerated the procedure well. I herewith send a copy of the endoscopy note and photographs for your review. Thank you, Sincerely, [facility] /[id number]
== END 2017-09-18 09:28 | disposition home or self-care (01) ==
LOC: DL.ENDO 05:26
PROVIDERS: ATTEND Internal Medicine Gastroenterology
DX: R19.5 Other fecal abnormalities (principal); D12.4 Benign neoplasm of descending colon; K64.8 Other hemorrhoids; K56.2 Volvulus; E11.42 Type 2 diabetes mellitus with diabetic polyneuropathy; I10 Essential (primary) hypertension; J45.909 Unspecified asthma, uncomplicated; E66.09 Other obesity due to excess calories; F41.1 Generalized anxiety disorder; F32.9 Major depressive disorder, single episode, unspecified; E78.00 Pure hypercholesterolemia, unspecified; G47.33 Obstructive sleep apnea (adult) (pediatric); Z86.73 Personal history of transient ischemic attack (TIA), and cerebral infarction without residual deficits; Z79.82 Long term (current) use of aspirin; Z88.1 Allergy status to other antibiotic agents; Z91.041 Radiographic dye allergy status; Z88.8 Allergy status to other drugs, medicaments and biological substances; Z88.5 Allergy status to narcotic agent
CPT/HCPCS: 45385; 88305; J2250; J3010; J7042

== ENCOUNTER 2017-11-18 08:59 | Emergency (ER) | payer MEDICARE, MEDICAID ==
--- NOTE | 2017-11-18 09:02 | EDM.PDOC ---
ED HPI GENERAL MEDICAL PROBLEM - General Chief Complaint: Genitourinary Problem Stated Complaint: UTI, BLOOD IN URINE Time Seen by Provider: 11/18/17 09:02 Source of Information: Reports: Patient, Old Records, RN, RN Notes Reviewed History Limitations: Reports: No Limitations - History of Present Illness INITIAL COMMENTS - FREE TEXT/NARRATIVE: Pt presents to ER form home by POV with c/o pain and burning with urination that began yesterday. This morning she felt worse and notice blood tinged urine. She denies fevers, N/V, or flank pain. Admits to chills. Pt suspects that she has a "UTI". Onset: Gradual Onset Date: 11/17/17 Duration: Constant, Getting Worse Location: Reports: Other (urinary) Quality: Reports: Burning Severity: Severe Improves with: Reports: None Worsens with: Reports: Other (urination) Associated Symptoms: Reports: No Other Symptoms Perineal Area Pain Score (Numeric/FACES): 9 - Related Data Allergies Allergy/AdvReac Type Severity Reaction Status Date / Time erythromycin base Allergy Hives Verified 11/18/17 09:11 [Erythromycin Base] formoterol [From Dulera] Allergy Anxiety Verified 11/18/17 09:11 Iodinated Contrast- Oral and Allergy Cannot Verified 11/18/17 09:11 IV Dye Remember [Iodinated Contrast Media - IV Dye] mometasone furoate Allergy Anxiety Verified 11/18/17 09:11 [From Dulera] sulfamethoxazole Allergy Hives Verified 11/18/17 09:11 [From Bactrim] tramadol Allergy Rash Verified 11/18/17 09:11 trimethoprim [From Bactrim] Allergy Hives Verified 11/18/17 09:11 IVP dye Allergy Cannot Uncoded 11/18/17 09:11 Remember pollen Allergy Cannot Uncoded 11/18/17 09:11 Remember Home Meds: Home Meds Baclofen 10 mg PO BEDTIME 04/23/13 [History] DULoxetine [Cymbalta] 60 mg PO BEDTIME 04/23/13 [History] Insulin Aspart [NovoLOG] 30 - 34 units SQ TID PRN 04/23/13 [History] Insulin Detemir [Levemir] 90 units SQ BID 04/23/13 [History] Simvastatin 20 mg PO BEDTIME 04/23/13 [History] Verapamil HCl [Verapamil ER] 180 mg PO DAILY 04/23/13 [History] Albuterol [Ventolin HFA] 2 puff INH Q4H PRN 09/04/13 [History] Folic Acid 1 mg PO DAILY 09/04/13 [History] Multivitamin [Multi-Vitamin Daily] 1 tab PO DAILY 09/04/13 [History] Pantoprazole [ProTONIX] 40 mg PO DAILY 09/04/13 [History] Aspirin 325 mg PO DAILY 04/28/15 [History] Montelukast [Singulair] 10 mg PO BEDTIME 11/16/15 [History] Nortriptyline 50 mg PO BEDTIME 11/16/15 [History] Trospium Chloride 20 mg PO BID 11/16/15 [History] Ambrisentan [Letairis] 10 mg PO DAILY 07/10/16 [History] Cholecalciferol (Vitamin D3) [Vitamin D3] 1,000 units PO DAILY 07/10/16 [History ] Letrozole 2.5 mg PO BEDTIME 07/10/16 [History] Loratadine [Allergy] 10 mg PO DAILY 07/10/16 [History] Pregabalin [Lyrica] 200 mg PO BID 07/10/16 [History] Sennosides/Docusate Sodium [Senna-Docusate Sodium] 2 each PO DAILY 07/10/16 [ History] Tadalafil [Adcirca] 20 mg PO DAILY 07/10/16 [History] Warfarin Sodium [Coumadin] 5 mg PO BEDTIME 10/01/16 [History] LORazepam [Ativan] 1 mg PO Q6HR PRN 05/07/17 [History] Saliva Stimulant Comb. No.3 [Biotene Moisturizing Mouth] 1 spray PO ASDIRECTED 09/14/17 [History] Docusate Sodium/Sennosides [Senokot-S] 2 tab PO BID 09/15/17 [History] Ferrous Sulfate 1 tab PO DAILY 09/15/17 [History] Past Medical History HEENT History: Reports: Impaired Vision, Other (See Below) Other HEENT History: wears glasses, sees a black spot in her right eye at times Cardiovascular History: Reports: Blood Clots/VTE/DVT, High Cholesterol, Hypertension, Other (See Below) Other Cardiovascular History: pulmonary hypertension Respiratory History: Reports: Asthma, Bronchitis, Recurrent, Sleep Apnea, Other (See Below) Other Respiratory History: Sleeps with 2/l N/C Gastrointestinal History: Reports: GERD Genitourinary History: Reports: Pyelonephritis, Urinary Incontinence, UTI, Recurrent, Other (See Below) Other Genitourinary History: Stress incontinence, kidney stones 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 Hematologic History: Reports: Folic Acid Other Hematologic History: antiphospholipid def. Immunologic History: Reports: None Other Immunologic History: on oral chemo Oncologic (Cancer) History: Reports: Breast Dermatologic History: Reports: Eczema - Infectious Disease History Infectious Disease History: Reports: MRSA Other Infectious Disease History: Patient states she has been cleared for the MRSA - Past Surgical History Head Surgeries/Procedures: Reports: None HEENT Surgical History: Reports: None Cardiovascular Surgical History: Reports: Other (See Below) Other Cardiovascular Surgeries/Procedures: angiogram, Respiratory Surgical History: Reports: None GI Surgical History: Reports: Cholecystectomy, EGD, Other (See Below) Other GI Surgeries/Procedures: exploratory lap at age 1, dried cyst Female Surgical History: Reports: Breast Biopsy, Breast Implant, Breast Reconstruction, Hysterectomy, Mastectomy, Salpingo-Oophorectomy Endocrine Surgical History: Reports: Thyroid Biopsy Neurological Surgical History: Reports: None Musculoskeletal Surgical History: Reports: None Oncologic Surgical History: Reports: Mastectomy Other Oncologic Surgeries/Procedures: marina. with implants. Dermatological Surgical History: Reports: None Social & Family History - Family History Family Medical History: Noncontributory Cardiac: Reports: Hypertension, Stent Other Cardiac Family History: Dad Respiratory: Reports: Asthma, Sleep Apnea Other Respiratory Family Hisory: Dad Neurological: Reports: Neuropathy, Diabetic Other Neurological Family History: Dad Psychiatric: Reports: Anxiety Other Psychiatric Family History: Dad Endocrine/Metabolic: Reports: Diabetes, type II Other Endocrine/Metabolic Family History: Dad Oncologic: Reports: Liver Other Oncologic Family History: mother - Caffeine Use Caffeine Use: Reports: Coffee, Soda Other Caffeine Use: 8 oz coffee. 20 oz soda most of days - Living Situation & Occupation Living situation: Reports: , with Family Occupation: Employed ED ROS GENERAL - Review of Systems Review Of Systems: ROS reveals no pertinent complaints other than HPI. ED EXAM, RENAL/ - Physical Exam Exam: See Below Exam Limited By: No Limitations General Appearance: Alert, WD/WN, No Apparent Distress, Obese Eye Exam: Bilateral Eye: Normal Inspection Ears: Normal External Exam, Normal Canal, Hearing Grossly Normal, Normal TMs Nose: Nasal Tenderness, Nasal Drainage, Other (turbinate injection) Throat/Mouth: Normal Inspection, Normal Lips, Normal Teeth, Normal Gums, Normal Oropharynx, Normal Voice, No Airway Compromise Head: Atraumatic, Normocephalic, Facial Tenderness Neck: Normal Inspection, Supple, Non-Tender, Full Range of Motion. No: Lymphadenopathy (L), Lymphadenopathy (R) Respiratory/Chest: No Respiratory Distress, Lungs Clear, Normal Breath Sounds, No Accessory Muscle Use, Chest Non-Tender Cardiovascular: Regular Rate, Rhythm GI/Abdominal: Normal Bowel Sounds, Soft, No Distention, Tender (suprapubic tenderness) Back Exam: Normal Inspection. No: CVA Tenderness (L), CVA Tenderness (R) Extremities: Normal Inspection Neurological: Alert, Oriented, No Motor/Sensory Deficits Psychiatric: Normal Mood Skin Exam: Warm, Dry, Intact, Normal Color, No Rash Course - Vital Signs Last Recorded V/S: Last Vital Signs Temp 36.6 C 11/18/17 09:19 Pulse 106 H 11/18/17 09:19 Resp 18 11/18/17 09:19 BP 118/68 11/18/17 09:19 Pulse Ox 93 L 11/18/17 09:19 - Orders/Labs/Meds Orders: Active Orders 24 hr Category Date Time Status CULTURE URINE [RM] Stat Lab 11/18/17 09:03 Received Ciprofloxacin [Ciprofloxacin HCl] Med 11/18/17 09:32 Once 500 mg PO ONETIME ONE Labs: Laboratory Tests 11/18/17 Range/Units 09:[address] [facility] (YELLOW) Urine Appearance Slightly cloudy (CLEAR) Urine pH 5.5 (5.0-9.0) Ur Specific [place] 1.010 (1.005-1.030) Urine Protein 30 H (NEGATIVE) Urine Glucose (UA) 100 H (NEGATIVE) Urine Ketones Negative (NEGATIVE) Urine Occult Blood Small H (NEGATIVE) Urine Nitrite Positive H (NEGATIVE) Urine Bilirubin Negative (NEGATIVE) Urine Urobilinogen 1.0 (0.2-1.0) mg/dL Ur Leukocyte Esterase Small H (NEGATIVE) Urine RBC 0-5 /HPF Urine WBC 10-20 H (0-5/HPF) /HPF Ur Epithelial Cells Few /HPF Urine Bacteria Rare (0-FEW/HPF) /HPF Urine Mucus Rare /LPF Departure - Departure Time of Disposition: 09:35 Disposition: Home, Self-Care 01 Condition: Good Clinical Impression: UTI (urinary tract infection) Qualifiers: Urinary tract infection type: acute cystitis Hematuria presence: with hematuria Qualified Code(s): N30.01 - Acute cystitis with hematuria Sinusitis Qualifiers: Sinusitis location: unspecified location Chronicity: acute Recurrence: non- recurrent Qualified Code(s): J01.90 - Acute sinusitis, unspecified - Discharge Information Instructions: Sinusitis, Adult, [id number], Urinary Tract Infection, Adult Forms: ED Department Discharge Additional Instructions: Rx: Cipro 500mg Follow up in clinic if not improving in 2 to 3 days. - My Orders Last 24 Hours: My Active Orders 11/18/17 09:03 CULTURE URINE [RM] Stat 11/18/17 09:32 Ciprofloxacin [Ciprofloxacin HCl] 500 mg PO ONETIME ONE - Assessment/Plan Last 24 Hours: My Active Orders 11/18/17 09:03 CULTURE URINE [RM] Stat 11/18/17 09:32 Ciprofloxacin [Ciprofloxacin HCl] 500 mg PO ONETIME ONE
[2017-11-18 09:25] VITALS: BP 118/68
[2017-11-18] MEDS ORDERED: Ciprofloxacin 500 MG Tab PO ONE (09:32)
== END 2017-11-18 09:49 | disposition home or self-care (01) ==
LOC: DL.ED 08:59
DX: N30.01 Acute cystitis with hematuria (principal); J01.90 Acute sinusitis, unspecified; I10 Essential (primary) hypertension; E66.9 Obesity, unspecified; E11.40 Type 2 diabetes mellitus with diabetic neuropathy, unspecified; Z88.1 Allergy status to other antibiotic agents; Z91.041 Radiographic dye allergy status; Z79.899 Other long term (current) drug therapy; Z79.82 Long term (current) use of aspirin
CPT/HCPCS: 81001; 87086; 99283; 99284

== ENCOUNTER 2017-12-26 16:20 | Emergency (ER) | payer MEDICARE, MEDICAID ==
[2017-12-26] MEDS ORDERED: Oxymetazoline 0.05% Nasal Spray 15 ML Bottle NAS ONE (16:22)
[2017-12-26 16:28] VITALS: BP 159/85
[2017-12-26 17:21] LABS: CHLORIDE,CL 103 mmol/L (101-111); SODIUM,NA 138 mmol/L (135-145)
--- NOTE | 2017-12-26 17:31 | EDM.PDOC ---
Scribed by Myra Burciaga 12/26/17 1731 for Colton Cobb PA ED HPI GENERAL MEDICAL PROBLEM - General Chief Complaint: ENT Problem Stated Complaint: NOSE BLEED, HIGH BP [id number] Time Seen by Provider: 12/26/17 16:35 Source of Information: Reports: Patient, RN, RN Notes Reviewed - History of Present Illness INITIAL COMMENTS - FREE TEXT/NARRATIVE: Patient presented to ER with a nosebleed that started at 1300. It stopped in the car but started when she got back up. Bleeding had stopped by the time she returned. She wonders if she has a virus?, and a scratchy throat for 2 weeks. Patient reports she does have a dental appointment in March due to missing a previous appointment. Onset: Today Location: Reports: Other (nose) Quality: Reports: Ache Severity: Moderate Improves with: Reports: None Worsens with: Reports: None Associated Symptoms: Reports: No Other Symptoms - Related Data Allergies Allergy/AdvReac Type Severity Reaction Status Date / Time erythromycin base Allergy Hives Verified 12/26/17 16:25 [Erythromycin Base] formoterol [From Dulera] Allergy Anxiety Verified 12/26/17 16:25 Iodinated Contrast- Oral and Allergy Cannot Verified 12/26/17 16:25 IV Dye Remember [Iodinated Contrast Media - IV Dye] mometasone furoate Allergy Anxiety Verified 12/26/17 16:25 [From Dulera] sulfamethoxazole Allergy Hives Verified 12/26/17 16:25 [From Bactrim] tramadol Allergy Rash Verified 12/26/17 16:25 trimethoprim [From Bactrim] Allergy Hives Verified 12/26/17 16:25 IVP dye Allergy Cannot Uncoded 12/26/17 16:25 Remember pollen Allergy Cannot Uncoded 12/26/17 16:25 Remember Home Meds: Home Meds Baclofen 10 mg PO BEDTIME 04/23/13 [History] DULoxetine [Cymbalta] 60 mg PO BEDTIME 04/23/13 [History] Insulin Aspart [NovoLOG] 30 - 34 units SQ TID PRN 04/23/13 [History] Insulin Detemir [Levemir] 90 units SQ BID 04/23/13 [History] Simvastatin 20 mg PO BEDTIME 04/23/13 [History] Verapamil HCl [Verapamil ER] 180 mg PO DAILY 04/23/13 [History] Albuterol [Ventolin HFA] 2 puff INH Q4H PRN 09/04/13 [History] Folic Acid 1 mg PO DAILY 09/04/13 [History] Multivitamin [Multi-Vitamin Daily] 1 tab PO DAILY 09/04/13 [History] Pantoprazole [ProTONIX] 40 mg PO DAILY 09/04/13 [History] Aspirin 325 mg PO DAILY 04/28/15 [History] Montelukast [Singulair] 10 mg PO BEDTIME 11/16/15 [History] Nortriptyline 50 mg PO BEDTIME 11/16/15 [History] Trospium Chloride 20 mg PO DAILY 11/16/15 [History] Ambrisentan [Letairis] 10 mg PO DAILY 07/10/16 [History] Cholecalciferol (Vitamin D3) [Vitamin D3] 1,000 units PO DAILY 07/10/16 [History ] Letrozole 2.5 mg PO BEDTIME 07/10/16 [History] Loratadine [Allergy] 10 mg PO DAILY 07/10/16 [History] Pregabalin [Lyrica] 200 mg PO DAILY 07/10/16 [History] Sennosides/Docusate Sodium [Senna-Docusate Sodium] 2 each PO DAILY 07/10/16 [ History] Tadalafil [Adcirca] 20 mg PO DAILY 07/10/16 [History] Warfarin Sodium [Coumadin] 5 mg PO BEDTIME 10/01/16 [History] LORazepam [Ativan] 1 mg PO Q6HR PRN 05/07/17 [History] Saliva Stimulant Comb. No.3 [Biotene Moisturizing Mouth] 1 spray PO ASDIRECTED 09/14/17 [History] Docusate Sodium/Sennosides [Senokot-S] 2 tab PO DAILY 09/15/17 [History] Ferrous Sulfate 1 tab PO DAILY 09/15/17 [History] Selexipag [Uptravi] 1,200 mcg PO BID 12/26/17 [History] Past Medical History HEENT History: Reports: Impaired Vision, Other (See Below) Other HEENT History: wears glasses, sees a black spot in her right eye at times Cardiovascular History: Reports: Blood Clots/VTE/DVT, High Cholesterol, Hypertension, Other (See Below) Other Cardiovascular History: pulmonary hypertension Respiratory History: Reports: Asthma, Bronchitis, Recurrent, Sleep Apnea, Other (See Below) Other Respiratory History: Sleeps with 2/l N/C Gastrointestinal History: Reports: GERD Genitourinary History: Reports: Pyelonephritis, Urinary Incontinence, UTI, Recurrent, Other (See Below) Other Genitourinary History: Stress incontinence, kidney stones [employer] History: Reports: Polycystic Ovaries, Musculoskeletal History: Reports: Fracture, Fibromyalgia Neurological History: Reports: CVA, Migraines, Neuropathy, Diabetic, TIA Psychiatric History: Reports: Anxiety, Depression Endocrine/Metabolic History: Reports: Diabetes, Type II, Obesity/BMI 30+, Other (See Below) Other Endocrine/Metabolic History: 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 Hematologic History: Reports: Folic Acid Other Hematologic History: antiphospholipid def. Immunologic History: Reports: None Other Immunologic History: on oral chemo Oncologic (Cancer) History: Reports: Breast Dermatologic History: Reports: Eczema - Infectious Disease History Infectious Disease History: Reports: MRSA Other Infectious Disease History: Patient states she has been cleared for the MRSA - Past Surgical History Head Surgeries/Procedures: Reports: None HEENT Surgical History: Reports: None Cardiovascular Surgical History: Reports: Other (See Below) Other Cardiovascular Surgeries/Procedures: angiogram, Respiratory Surgical History: Reports: None GI Surgical History: Reports: Cholecystectomy, EGD, Other (See Below) Other GI Surgeries/Procedures: exploratory lap at age 1, dried cyst Female Surgical History: Reports: Breast Biopsy, Breast Implant, Breast Reconstruction, Hysterectomy, Mastectomy, Salpingo-Oophorectomy Endocrine Surgical History: Reports: Thyroid Biopsy Neurological Surgical History: Reports: None Musculoskeletal Surgical History: Reports: None Oncologic Surgical History: Reports: Mastectomy Other Oncologic Surgeries/Procedures: marina. with implants. Dermatological Surgical History: Reports: None Social & Family History - Family History Family Medical History: Noncontributory Cardiac: Reports: Hypertension, Stent Other Cardiac Family History: Dad Respiratory: Reports: Asthma, Sleep Apnea Other Respiratory Family Hisory: Dad Neurological: Reports: Neuropathy, Diabetic Other Neurological Family History: Dad Psychiatric: Reports: Anxiety Other Psychiatric Family History: Dad Endocrine/Metabolic: Reports: Diabetes, type II Other Endocrine/Metabolic Family History: Dad Oncologic: Reports: Liver Other Oncologic Family History: mother - Tobacco Use Smoking Status *Q: Never Smoker - Caffeine Use Caffeine Use: Reports: Coffee, Soda Other Caffeine Use: 8 oz coffee. 20 oz soda most of days - Recreational Drug Use Recreational Drug Use: No - Living Situation & Occupation Living situation: Reports: , with Family Occupation: Employed ED ROS ENT - Review of Systems Review Of Systems: ROS reveals no pertinent complaints other than HPI. ED EXAM, ENT - Physical Exam Exam: See Below Exam Limited By: No Limitations General Appearance: Alert, WD/WN, No Apparent Distress Eye Exam: Bilateral Eye: EOMI, Normal Inspection, PERRL Ears: Normal External Exam, Normal Canal, Hearing Grossly Normal, Normal TMs Nose: Other (dried blood in right nare) Mouth/Throat: Other (blisters on lips. Blisters inmouth) Head: Atraumatic Neck: Normal Inspection, Supple, Non-Tender, Full Range of Motion Respiratory/Chest: No Respiratory Distress, Lungs Clear, Normal Breath Sounds, No Accessory Muscle Use, Chest Non-Tender Cardiovascular: Normal Peripheral Pulses, Regular Rate, Rhythm, No Edema, No Gallop, No JVD, No Murmur, No Rub GI/Abdominal: Other (obese) (Female) Exam: Deferred Rectal (Female) Exam: Deferred Back: Normal Inspection, Full Range of Motion Extremities: Normal Inspection, Normal Range of Motion, Non-Tender, No Pedal Edema, Normal Capillary Refill Neurological: Alert, Oriented, CN II-XII Intact, Normal Cognition, Normal Gait, Normal Reflexes, No Motor/Sensory Deficits Psychiatric: Normal Affect, Normal Mood Skin: Warm, Dry, Intact, Normal Color, No Rash Lymphatic: No Adenopathy Course - Vital Signs Last Recorded V/S: Last Vital Signs Temp 36.4 C 12/26/17 16:25 Pulse 108 H 12/26/17 16:25 Resp 18 12/26/17 16:25 BP 159/85 H 12/26/17 16:25 Pulse Ox 93 L 12/26/17 16:25 - Orders/Labs/Meds Labs: Laboratory Tests 12/26/17 12/26/17 12/26/17 Range/Units 16:50 16:50 16:50 WBC 11.3 H (5.0-10.0) 10^3/uL RBC 4.22 (4.2-5.4) 10^6/uL Hgb 12.3 (12.0-16.0) g/dL Hct 39.3 (37.0-47.0) % MCV 93.1 (80-100) fL MCH 29.1 (27.0-34.0) pg MCHC 31.3 L (33.0-35.0) g/dL Plt Count 301 D (150-450) 10^3/uL Neut % (Auto) 64.6 (42.2-75.2) % Lymph % (Auto) 20.4 L (20.5-50.1) % [place] % (Auto) 9.8 H (2-8) % Eos % (Auto) 4.9 H (1.0-3.0) % Baso % (Auto) 0.3 (0.0-1.0) % PT 30.9 H (9.0-12.0) SEC INR 3.2 H (0.9-1.2) Sodium 138 (135-145) mmol/L Potassium 4.0 (3.6-5.0) mmol/L Chloride 103 (101-111) mmol/L Carbon Dioxide 27.0 (21.0-31.0) mmol/L Anion Gap 12.0 BUN 10 (7-18) mg/dL Creatinine 0.7 (0.6-1.3) mg/dL Est Cr Clr Drug Dosing 79.34 mL/min Estimated GFR (MDRD) > 60 BUN/Creatinine Ratio 14.28 Glucose 114 H (74-105) mg/dL Calcium 8.8 (8.4-10.2) mg/dl Total Bilirubin 0.3 (0.2-1.0) mg/dL AST 16 (10-42) IU/L ALT 14 (10-60) IU/L Alkaline Phosphatase 99 (42-121) IU/L Total Protein 7.1 (6.7-8.2) g/dl Albumin 3.2 (3.2-5.5) g/dl Globulin 3.9 Albumin/Globulin Ratio 0.82 Meds: Medications Discontinued Medications Generic Name Dose Route Start Last Admin Trade Name Freq PRN Reason Stop Dose Admin Oxymetazoline HCl 1 ml 12/26/17 16:22 12/26/17 16:44 Afrin Original 0.05% Nasal [place] CHET 12/26/17 16:23 1 ml ONETIME ONE Administration Departure - Departure Time of Disposition: 17:29 Disposition: Home, Self-Care 01 Condition: Fair Clinical Impression: Nosebleed - Discharge Information *PRESCRIPTION DRUG MONITORING PROGRAM REVIEWED*: Not Applicable *COPY OF PRESCRIPTION DRUG MONITORING REPORT IN PATIENT JUNIOR: Not Applicable Instructions: Nosebleed, [id number] Forms: ED Department Discharge Care Plan Goals: The patient was advised of the examination and lab results during the visit. During the visit, the patient's nares were sprayed with Afrin with no further bleeding. If the patient has any additional symptoms or concerns, the patient should visit her primary care facility or return to the emergency department. I have read and agree with the documentation that has been completed regarding this visit. By signing this record, I attest that the documentation was completed in my physical presence and is an accurate record of the encounter.
== END 2017-12-26 17:36 | disposition home or self-care (01) ==
LOC: DL.ED 16:20
DX: R04.0 Epistaxis (principal); S00.521A Blister (nonthermal) of lip, initial encounter; I10 Essential (primary) hypertension; E11.40 Type 2 diabetes mellitus with diabetic neuropathy, unspecified; E66.9 Obesity, unspecified; Z79.4 Long term (current) use of insulin; Z79.82 Long term (current) use of aspirin; Z79.01 Long term (current) use of anticoagulants; Z79.899 Other long term (current) drug therapy; Z91.041 Radiographic dye allergy status; Z88.2 Allergy status to sulfonamides; Z88.5 Allergy status to narcotic agent; Z88.1 Allergy status to other antibiotic agents; X58.XXXA Exposure to other specified factors, initial encounter
CPT/HCPCS: 36415; 80053; 85025; 85610; 99283; A9270

== ENCOUNTER 2018-06-06 14:36 | Emergency (ER) | payer MEDICARE, MEDICAID ==
[2018-06-06] MEDS ORDERED: Sodium Chloride 0.9% 10 ML Syringe FLUSH PRN (14:52)
[2018-06-06 15:39] LABS: ANION GAP 13.7; CHLORIDE,CL 99 mmol/L (101-111); SODIUM,NA 135 mmol/L (135-145)
--- NOTE | 2018-06-06 15:46 | CR ---
Clinical history: 53-year-old female with chest pain. Interpretation: Upright AP portable chest film unremarkable and unchanged in the interval since 25 January 2018 exam despite less than optimal inspiratory effort this obese female. Normal cardiac silhouette without new signs of alveolar edema or dependent pleural fluid accumulation. No new lung mass, hilar lymphadenopathy (some symmetric prominent pulmonary artery segments) or focal lobar pneumonia. No atelectasis/collapse. No pneumothorax. CONCLUSION: No acute new cardiopulmonary abnormality.
--- NOTE | 2018-06-06 16:07 | EDM.PDOC ---
ED HPI GENERAL MEDICAL PROBLEM - General Chief Complaint: Chest Pain Stated Complaint: AMBULANCE Time Seen by Provider: 06/06/18 15:15 Source of Information: Reports: Patient, Provider, RN, RN Notes Reviewed History Limitations: Reports: No Limitations - History of Present Illness INITIAL COMMENTS - FREE TEXT/NARRATIVE: Patient reports to ER from [facility] with complaint of left chest pain and palpitations that radiated to head and right side of neck. She got a headache 12/18 after that. The shortness of breath and chest pain has resolved. She had episodes similar to this last week. Denies recent illness. She has a dry cough and chills. No fever, nausea, vomiting or diarrhea. Patient was found to have a UTI at [facility]. Her right jaw pain 07/18. Onset: Today Duration: Constant Location: Reports: Head, Neck Quality: Reports: Ache Severity: Severe Improves with: Reports: None Worsens with: Reports: None Associated Symptoms: Reports: No Other Symptoms - Related Data Allergies Allergy/AdvReac Type Severity Reaction Status Date / Time erythromycin base Allergy Hives Verified 03/30/18 06:27 [Erythromycin Base] formoterol [From Dulera] Allergy Anxiety Verified 03/30/18 06:27 Iodinated Contrast- Oral and Allergy Cannot Verified 03/30/18 06:27 IV Dye Remember [Iodinated Contrast Media - IV Dye] mometasone furoate Allergy Anxiety Verified 03/30/18 06:27 [From Dulera] sulfamethoxazole Allergy Hives Verified 03/30/18 06:27 [From Bactrim] tramadol Allergy Rash Verified 03/30/18 06:27 trimethoprim [From Bactrim] Allergy Hives Verified 03/30/18 06:27 IVP dye Allergy Cannot Uncoded 03/30/18 06:27 Remember pollen Allergy Cannot Uncoded 03/30/18 06:27 Remember Home Meds: Home Meds Baclofen 10 mg PO BEDTIME 04/23/13 [History] DULoxetine [Cymbalta] 60 mg PO BEDTIME 04/23/13 [History] Insulin Aspart [NovoLOG] 30 - 32 units SQ TID PRN 04/23/13 [History] Insulin Detemir [Levemir] 90 units SQ BID 04/23/13 [History] Simvastatin 20 mg PO BEDTIME 04/23/13 [History] Verapamil HCl [Verapamil ER] 180 mg PO DAILY 04/23/13 [History] Albuterol [Ventolin HFA] 2 puff INH Q4H PRN 09/04/13 [History] Folic Acid 1 mg PO DAILY 09/04/13 [History] Multivitamin [Multi-Vitamin Daily] 1 tab PO DAILY 09/04/13 [History] Pantoprazole [ProTONIX] 40 mg PO DAILY 09/04/13 [History] Aspirin 325 mg PO DAILY 04/28/15 [History] Montelukast [Singulair] 10 mg PO BEDTIME 11/16/15 [History] Nortriptyline 50 mg PO BEDTIME 11/16/15 [History] Trospium Chloride 20 mg PO DAILY 11/16/15 [History] Ambrisentan [Letairis] 10 mg PO DAILY 07/10/16 [History] Cholecalciferol (Vitamin D3) [Vitamin D3] 1,000 units PO DAILY 07/10/16 [History ] Letrozole 2.5 mg PO BEDTIME 07/10/16 [History] Loratadine [Allergy] 10 mg PO DAILY 07/10/16 [History] Pregabalin [Lyrica] 200 mg PO DAILY 07/10/16 [History] Sennosides/Docusate Sodium [Senna-Docusate Sodium] 2 each PO DAILY 07/10/16 [ History] Tadalafil [Adcirca] 20 mg PO DAILY 07/10/16 [History] Warfarin Sodium [Coumadin] 5 mg PO BEDTIME 10/01/16 [History] LORazepam [Ativan] 1 mg PO Q6HR PRN 05/07/17 [History] Saliva Stimulant Comb. No.3 [Biotene Moisturizing Mouth] 1 spray PO ASDIRECTED 09/14/17 [History] Ferrous Sulfate 1 tab PO DAILY 09/15/17 [History] Selexipag [Uptravi] 1,600 mcg PO BID 12/26/17 [History] Past Medical History HEENT History: Reports: Impaired Vision, Other (See Below) Other HEENT History: wears glasses, sees a black spot in her right eye at times Cardiovascular History: Reports: Blood Clots/VTE/DVT, High Cholesterol, Hypertension, Pulmonary Hypertension Other Cardiovascular History: problems with heart pounding and fluttering Respiratory History: Reports: Asthma, Bronchitis, Recurrent, Sleep Apnea, Other (See Below) Other Respiratory History: Sleeps 3 L nc Gastrointestinal History: Reports: GERD Genitourinary History: Reports: Pyelonephritis, Urinary Incontinence, UTI, Recurrent, Other (See Below) Other Genitourinary History: Stress incontinence, kidney stones [employer] ME[employer] History: Reports: Polycystic Ovaries, Musculoskeletal History: Reports: Fracture, Fibromyalgia Neurological History: Reports: CVA, Migraines, Neuropathy, Diabetic, TIA Psychiatric History: Reports: Anxiety, Depression Endocrine/Metabolic History: Reports: Diabetes, Type II, Obesity/BMI 30+, Other (See Below) Other Endocrine/Metabolic History: 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 Hematologic History: Reports: Folic Acid Other Hematologic History: antiphospholipid def. Immunologic History: Reports: None Other Immunologic History: on oral chemo Oncologic (Cancer) History: Reports: Breast Dermatologic History: Reports: Eczema - Infectious Disease History Infectious Disease History: Reports: Chicken Pox, MRSA Other Infectious Disease History: Patient states she has been cleared for the MRSA - Past Surgical History Head Surgeries/Procedures: Reports: None HEENT Surgical History: Reports: None Cardiovascular Surgical History: Reports: Other (See Below) Other Cardiovascular Surgeries/Procedures: angiogram, Respiratory Surgical History: Reports: None GI Surgical History: Reports: Cholecystectomy, Colonoscopy, EGD, Other (See Below) Other GI Surgeries/Procedures: exploratory lap at age 1, dried cyst Female Surgical History: Reports: Breast Biopsy, Breast Implant, Breast Reconstruction, Hysterectomy, Mastectomy, Salpingo-Oophorectomy Endocrine Surgical History: Reports: Thyroid Biopsy Neurological Surgical History: Reports: None Musculoskeletal Surgical History: Reports: None Oncologic Surgical History: Reports: Mastectomy Other Oncologic Surgeries/Procedures: marina. with implants. Dermatological Surgical History: Reports: None Social & Family History - Family History Family Medical History: Noncontributory Cardiac: Reports: Hypertension, Stent Other Cardiac Family History: Dad Respiratory: Reports: Asthma, Sleep Apnea Other Respiratory Family Hisory: Dad Neurological: Reports: Neuropathy, Diabetic Other Neurological Family History: Dad Psychiatric: Reports: Anxiety Other Psychiatric Family History: Dad Endocrine/Metabolic: Reports: Diabetes, type II Other Endocrine/Metabolic Family History: Dad Oncologic: Reports: Liver Other Oncologic Family History: mother - Tobacco Use Smoking Status *Q: Never Smoker Second Hand Smoke Exposure: No - Caffeine Use Caffeine Use: Reports: Coffee, Soda Other Caffeine Use: 8 oz coffee. 20 oz soda most of days - Living Situation & Occupation Living situation: Reports: , with Family Occupation: Employed ED ROS GENERAL - Review of Systems Review Of Systems: ROS reveals no pertinent complaints other than HPI. ED EXAM, GENERAL - Physical Exam Exam: See Below Exam Limited By: No Limitations General Appearance: Alert, WD/WN, No Apparent Distress Eye Exam: Bilateral Eye: EOMI, Normal Inspection, PERRL Ears: Normal External Exam, Normal Canal, Hearing Grossly Normal, Normal TMs Nose: Normal Inspection, Normal Mucosa, No Blood Throat/Mouth: Normal Inspection, Normal Lips, Normal Teeth, Normal Gums, Normal Oropharynx, Normal Voice, No Airway Compromise Head: Atraumatic, Normocephalic Neck: Normal Inspection, Supple, Non-Tender, Full Range of Motion Respiratory/Chest: Lungs Clear ( and diminished) Cardiovascular: Normal Peripheral Pulses, Regular Rate, Rhythm, No Edema, No Gallop, No JVD, No Murmur, No Rub GI/Abdominal: Other (large hernia) (Female) Exam: Deferred Rectal (Female) Exam: Deferred Back Exam: Normal Inspection, Full Range of Motion, NT Extremities: Normal Inspection, Normal Range of Motion, Non-Tender, Normal Capillary Refill, No Pedal Edema Neurological: Alert, Oriented, CN II-XII Intact, Normal Cognition, Normal Gait, Normal Reflexes, No Motor/Sensory Deficits Psychiatric: Anxious Skin Exam: Warm, Dry, Intact, Normal Color, No Rash Lymphatic: No Adenopathy EKG INTERPRETATION EKG Date: 06/06/18 Time: 15:03 Rhythm: Other (sinus rhythm) Rate (Beats/Min): 99 EKG Interpretation Comments: Consider right atrial abnormality. Large precordial r?s transition. Repolarization abnormality suggests ischemia, anterior-lateral leads. Course - Vital Signs Last Recorded V/S: Last Vital Signs Temp 99 F 06/06/18 18:00 Pulse 109 H 06/06/18 18:00 Resp 20 06/06/18 18:00 BP 117/55 L 06/06/18 18:00 Pulse Ox 90 L 06/06/18 18:00 - Orders/Labs/Meds Orders: Active Orders 24 hr Category Date Time Status Blood Glucose Check, Bedside [RC] ONETIME Care 06/06/18 17:01 Active EKG Documentation Completion [RC] STAT Care 06/06/18 14:53 Active Peripheral IV Care [RC] . DIRECTED Care 06/06/18 14:55 Active Peripheral IV Insertion Adult [OM.PC] Stat Oth 06/06/18 14:52 Ordered Labs: Laboratory Tests 06/06/18 06/06/18 06/06/18 Range/Units 15:07 15:07 15:07 WBC 8.8 (5.0-10.0) 10^3/uL RBC 4.49 (4.2-5.4) 10^6/uL Hgb 13.1 (12.0-16.0) g/dL Hct 41.1 (37.0-47.0) % MCV 91.5 (80-100) fL MCH 29.2 (27.0-34.0) pg MCHC 31.9 L (33.0-35.0) g/dL Plt Count 234 (150-450) 10^3/uL Neut % (Auto) 60.0 (42.2-75.2) % Lymph % (Auto) 23.2 (20.5-50.1) % [place] % (Auto) 9.6 H (2-8) % Eos % (Auto) 6.9 H (1.0-3.0) % Baso % (Auto) 0.3 (0.0-1.0) % PT 16.0 H (9.0-12.0) SEC INR 1.6 H (0.9-1.2) D-Dimer, Quantitative (0-400) ng/mL Sodium 135 (135-145) mmol/L Potassium 3.7 (3.6-5.0) mmol/L Chloride 99 L (101-111) mmol/L Carbon Dioxide 26.0 (21.0-31.0) mmol/L Anion Gap 13.7 BUN 8 (7-18) mg/dL Creatinine 0.7 (0.6-1.3) mg/dL Est Cr Clr Drug Dosing 78.41 mL/min Estimated GFR (MDRD) > 60 BUN/Creatinine Ratio 11.42 Glucose 84 (74-105) mg/dL POC Glucose (70-105) mg/dl Calcium 8.6 (8.4-10.2) mg/dl Total Bilirubin 0.6 (0.2-1.0) mg/dL AST 23 (10-42) IU/L ALT 20 (10-60) IU/L Alkaline Phosphatase 105 (42-121) IU/L Troponin I < 0.02 (0.00-0.02) ng/ml Total Protein 6.7 (6.7-8.2) g/dl Albumin 3.2 (3.2-5.5) g/dl Globulin 3.5 Albumin/Globulin Ratio 0.91 06/06/18 06/06/18 06/06/18 Range/Units 15:07 17:02 17:25 WBC (5.0-10.0) 10^3/uL RBC (4.2-5.4) 10^6/uL Hgb (12.0-16.0) g/dL Hct (37.0-47.0) % MCV (80-100) fL MCH (27.0-34.0) pg MCHC (33.0-35.0) g/dL Plt Count (150-450) 10^3/uL Neut % (Auto) (42.2-75.2) % Lymph % (Auto) (20.5-50.1) % [place] % (Auto) (2-8) % Eos % (Auto) (1.0-3.0) % Baso % (Auto) (0.0-1.0) % PT (9.0-12.0) SEC INR (0.9-1.2) D-Dimer, Quantitative < 100 (0-400) ng/mL Sodium (135-145) mmol/L Potassium (3.6-5.0) mmol/L Chloride (101-111) mmol/L Carbon Dioxide (21.0-31.0) mmol/L Anion Gap BUN (7-18) mg/dL Creatinine (0.6-1.3) mg/dL Est Cr Clr Drug Dosing mL/min Estimated GFR (MDRD) BUN/Creatinine Ratio Glucose (74-105) mg/dL POC Glucose 32 L* 151 H (70-105) mg/dl Calcium (8.4-10.2) mg/dl Total Bilirubin (0.2-1.0) mg/dL AST (10-42) IU/L ALT (10-60) IU/L Alkaline Phosphatase (42-121) IU/L Troponin I (0.00-0.02) ng/ml Total Protein (6.7-8.2) g/dl Albumin (3.2-5.5) g/dl Globulin Albumin/Globulin Ratio Meds: Medications Discontinued Medications Generic Name Dose Route Start Last Admin Trade Name Stephen PRN Reason Stop Dose Admin Dextrose/Water Confirm 06/06/18 17:04 06/06/18 17:12 Dextrose 50% In Water Administered 06/06/18 17:05 Not Given Dose 50 ml .ROUTE .STK-MED ONE Dextrose/Water 50 ml 06/06/18 17:09 06/06/18 17:08 Dextrose 50% In Water IVPUSH 06/06/18 17:10 50 ml ONETIME ONE Administration Phenazopyridine HCl Confirm 06/06/18 18:10 Urinary Pain Relief Administered 06/06/18 18:11 Dose 190 mg .ROUTE .STK-MED ONE Sodium Chloride 10 ml 06/06/18 14:52 Saline Flush FLUSH ASDIRECTED PRN Keep Vein Open - Radiology Interpretation Free Text/Narrative:: Chest xray: No acute new cardiopulmonary abnormality See rad report - Re-Assessments/Exams Free Text/Narrative Re-Assessment/Exam: 06/06/18 17:53 UA was done at [facility]. Results faxed to the ER. Macrobid prescribed by Dr. Leggett. Patient requests script for Pyridium. 06/07/18 08:28 Pt stated she felt her blood sugar was low. Her own meter read 40. Our bedside glucometer read 32. 1 amp of D50 was given and the patient was given a tray of food. Patient states improvement and that she is feeling much better. Denying CP and SOB. Departure - Departure Time of Disposition: 17:54 Disposition: Home, Self-Care 01 Condition: Fair Clinical Impression: Chest wall pain, Bronchospasm Instructions: Chest Wall Pain, [id number], Nonspecific Chest Pain, Easy-to- Read, Bronchospasm, Adult, [id number] Forms: ED Department Discharge Additional Instructions: RX: Pyridium Follow up with your primary care facility - My Orders Last 24 Hours: My Active Orders 06/06/18 14:52 Peripheral IV Insertion Adult [OM.PC] Stat 06/06/18 14:53 EKG Documentation Completion [RC] STAT 06/06/18 14:55 Peripheral IV Care [RC] . DIRECTED 06/06/18 17:01 Blood Glucose Check, Bedside [RC] ONETIME - Assessment/Plan Last 24 Hours: My Active Orders 06/06/18 14:52 Peripheral IV Insertion Adult [OM.PC] Stat 06/06/18 14:53 EKG Documentation Completion [RC] STAT 06/06/18 14:55 Peripheral IV Care [RC] . DIRECTED 06/06/18 17:01 Blood Glucose Check, Bedside [RC] ONETIME
[2018-06-06] MEDS: 50% Dextrose in Water 50 ML Syringe IVPUSH ONE (17:08)
[2018-06-06] MEDS: 50% Dextrose in Water 50 ML Syringe ONE (17:12)
[2018-06-06] MEDS ORDERED: Phenazopyridine 95 MG Tab ONE (18:10)
[2018-06-06 18:49] VITALS: BP 117/55
== END 2018-06-06 18:14 | disposition home or self-care (01) ==
LOC: DL.ED 14:36
DX: J98.01 Acute bronchospasm (principal); R07.89 Other chest pain; I10 Essential (primary) hypertension; E11.40 Type 2 diabetes mellitus with diabetic neuropathy, unspecified; E78.00 Pure hypercholesterolemia, unspecified; Z79.4 Long term (current) use of insulin; Z79.899 Other long term (current) drug therapy
CPT/HCPCS: 01462; 36415; 71045; 80053; 82962; 84484; 85025; 85379; 85610; 93005; 96374; 99285-25; J7060

== ENCOUNTER 2018-06-23 06:39 | Emergency (ER) | payer MEDICARE, MEDICAID ==
[2018-06-23 07:02] VITALS: BP 115/59
--- NOTE | 2018-06-23 13:23 | ER ---
SUBJECTIVE: The patient is a 53-year-old female with multiple chronic issues, including eczema, which she has ongoing troubles with. She states she does use Benadryl and cortisone ointment on the areas that itch, often it is her pretibial area. She states sometimes in the night when she is asleep, she scratches it too hard and is not aware of it, something she tries not to do while she is awake. This has occurred several nights and she now has a very irritated, somewhat reddened area of the right pretibial area and she is still scratching quite a bit. No fevers. No other new changes. No trauma. No bites or stings. She is taking her medications well. PAST MEDICAL HISTORY: Significant for IDDM; hyperlipidemia; hypertension; GERD; asthma; eczema; impaired vision, she wears glasses; DVT; pulmonary hypertension; sleep apnea; recurrent bronchitis; palpitations; cholecystectomy; colonoscopy; EGD; exploratory lap; pyelonephritis; urinary incontinence; urinary tract infections; stress incontinence; kidney stones; breast cancer with breast biopsy; breast implant; breast reconstruction; hysterectomy; previous mastectomy; polycystic ovarian disease; pregnancies; fibromyalgia; obesity; migraine headaches; CVA; diabetic neuropathy; TIAs; anxiety and depression; chickenpox; MRSA. CURRENT MEDICATIONS: Include: 1. Baclofen 10 mg p.o. at bedtime. 2. Cymbalta 60 mg p.o. at bedtime. 3. NovoLog 30 to 32 units subcutaneous t.i.d. p.r.n. 4. Levemir 90 units subcutaneous b.i.d. 5. Simvastatin 20 mg p.o. at bedtime. 6. Verapamil ER 180 mg p.o. daily. 7. Ventolin HFA 2 puffs inhaled q.4 hours p.r.n. 8. Folic acid 1 mg p.o. daily. 9. Multivitamin 1 tablet p.o. daily. 10.Protonix 40 mg p.o. daily. 11.Aspirin 325 mg p.o. daily. 12.Singulair 10 mg p.o. at bedtime. 13.Nortriptyline 50 mg p.o. at bedtime. 14.Trospium chloride 20 mg p.o. daily. 15.Letairis 10 mg p.o. daily. 16.Vitamin D3, 1000 units p.o. daily. 17.Letrozole 2.5 mg p.o. at bedtime. 18.Loratadine 10 mg p.o. daily. 19.Lyrica 200 mg p.o. daily. 20.Docusate p.r.n. 21.Tadalafil 20 mg p.o. daily. 22.Warfarin 5 mg p.o. at bedtime. 23.Ativan 1 mg p.o. q.6 hours p.r.n. 24.Ferrous sulfate 1 tablet p.o. daily. ALLERGIES: She is allergic to use erythromycin, it causes hives. Dulera causes anxiety. IV contrast, does not recall why. Sulfamethoxazole causes hives. Tramadol causes rash. Pollen, cannot remember. SOCIAL HISTORY: No substance abuse. REVIEW OF SYSTEMS: No fevers, no chest pain. No new changes overall except exacerbation of her eczema and scratching heavily in her sleep causing some inflammation and deep scratches to the right pretibial area. She states she had a family member of sepsis a year ago and she is worrying about becoming septic. No other new changes. Please see HPI. OBJECTIVE: Vital Signs: She is afebrile. Blood pressure is 115/59, respiration rate 16, and oxygen 90% on room air. General: She is talkative. Ambulatory. A and O x3. HEENT: Normocephalic, atraumatic. Lungs: No respiratory distress. Extremities: Focused exam of her lower extremities does not show any swelling. She does have pretibial abrasions from scratching. Has dry skin. It is somewhat inflamed. Does not appear cellulitic as of yet, but could get that way. She is somewhat high risk and is diabetic. ASSESSMENT: Eczema, exacerbation of. PLAN: Prescription for Lotrisone, prescription of Keflex. Advised to avoid scratching and to apply ointment via cloth or applicator. Keep eczema covered at night so not to inadvertently scratch. Follow up with PCP next week. Continue with regular meds. MODL /[id number] ALISA
== END 2018-06-23 07:52 | disposition home or self-care (01) ==
LOC: DL.ED 06:39
DX: L30.9 Dermatitis, unspecified (principal); I10 Essential (primary) hypertension; Z79.899 Other long term (current) drug therapy; Z88.1 Allergy status to other antibiotic agents
CPT/HCPCS: 99282

== ENCOUNTER 2018-08-26 17:47 | Emergency (ER) | payer MEDICARE, MEDICAID ==
[2018-08-26] MEDS ORDERED: Acetaminophen/HYDROcodone 325-10 MG Tab PO ONE (17:48)
[2018-08-26 18:07] VITALS: BP 129/69
[2018-08-26 18:44] LABS: ANION GAP 13.1; CHLORIDE,CL 101 mmol/L (101-111); SODIUM,NA 136 mmol/L (135-145)
[2018-08-26] MEDS ORDERED: fentaNYL 100 MCG/2 ML SDV IVPUSH ONE (18:51)
--- NOTE | 2018-08-26 18:58 | EDM.PDOC ---
ED HPI GENERAL MEDICAL PROBLEM - General Chief Complaint: Respiratory Problem Stated Complaint: ORAL SURG. AND SWLLING IS GETTING WORSE Time Seen by Provider: 08/26/18 18:53 Source of Information: Reports: Patient History Limitations: Reports: No Limitations - History of Present Illness INITIAL COMMENTS - FREE TEXT/NARRATIVE: s/p oral surgery , started facial swelling following day got worse called surgeon, told ER eval if worse. worse today with chest heaviness and SOB and some problem with swallowing. c/o left face hurting more. Left Face/Facial Pain Score (Numeric/FACES): 10 - Related Data Allergies Allergy/AdvReac Type Severity Reaction Status Date / Time erythromycin base Allergy Hives Verified 08/26/18 18:16 [Erythromycin Base] formoterol [From Dulera] Allergy Anxiety Verified 08/26/18 18:16 Iodinated Contrast- Oral and Allergy Cannot Verified 08/26/18 18:16 IV Dye Remember [Iodinated Contrast Media - IV Dye] mometasone furoate Allergy Anxiety Verified 08/26/18 18:16 [From Dulera] sulfamethoxazole Allergy Hives Verified 08/26/18 18:16 [From Bactrim] tramadol Allergy Rash Verified 08/26/18 18:16 trimethoprim [From Bactrim] Allergy Hives Verified 08/26/18 18:16 IVP dye Allergy Cannot Uncoded 08/26/18 18:16 Remember pollen Allergy Cannot Uncoded 08/26/18 18:16 Remember Home Meds: Home Meds Albuterol [Ventolin HFA] 2 puff INH Q4H 08/26/18 [History] Ambrisentan [Letairis] 10 mg PO DAILY 08/26/18 [History] Baclofen 10 mg PO BEDTIME 08/26/18 [History] Cholecalciferol (Vitamin D3) [Vitamin D3] 1,000 unit PO BEDTIME 08/26/18 [ History] DULoxetine [Cymbalta] 60 mg PO BEDTIME 08/26/18 [History] Fluticasone Propionate [Flovent HFA] 1 puff INH BID 08/26/18 [History] Folic Acid 1 mg PO DAILY 08/26/18 [History] Insulin Detemir [Levemir] 90 unit SUBCUT BID 08/26/18 [History] LORazepam [Ativan] 1 mg PO QID PRN 08/26/18 [History] Letrozole 2.5 mg PO BEDTIME 08/26/18 [History] Loratadine 10 mg PO DAILY 08/26/18 [History] Montelukast [Singulair] 10 mg PO BEDTIME 08/26/18 [History] Multivitamin [Multivitamins] 1 cap PO BEDTIME 08/26/18 [History] Nortriptyline HCl [Pamelor] 50 mg PO BEDTIME 08/26/18 [History] Pantoprazole Sodium [Protonix] 40 mg PO BEDTIME 08/26/18 [History] Pantoprazole Sodium [Protonix] 40 mg PO TIDMEALS 08/26/18 [History] Pregabalin [Lyrica] 200 mg PO BEDTIME 08/26/18 [History] Saliva Stimulant Agents Comb.2 [Biotene Oralbalance] 44.3 ml MM QID PRN [History] Selexipag [Uptravi] 1,600 mcg PO DAILY 08/26/18 [History] Sennosides/Docusate Sodium [Senna-Docusate Sodium Tablet] 1 tab PO BEDTIME 08/26 [History] Simvastatin 20 mg PO BEDTIME 08/26/18 [History] Tadalafil [Adcirca] 20 mg PO DAILY 08/26/18 [History] Trospium [Sanctura] 20 mg PO BIDMEALS 08/26/18 [History] Verapamil HCl [Verapamil Sr] 180 mg PO BID 08/26/18 [History] Warfarin [Coumadin] 5 mg PO BEDTIME 08/26/18 [History] Past Medical History HEENT History: Reports: Impaired Vision, Other (See Below) Other HEENT History: wears glasses, sees a black spot in her right eye at times Cardiovascular History: Reports: Blood Clots/VTE/DVT, High Cholesterol, Hypertension, Pulmonary Hypertension Other Cardiovascular History: problems with heart pounding and fluttering Respiratory History: Reports: Asthma, Bronchitis, Recurrent, Sleep Apnea, Other (See Below) Other Respiratory History: Sleeps 3 L nc Gastrointestinal History: Reports: GERD Genitourinary History: Reports: Pyelonephritis, Urinary Incontinence, UTI, Recurrent, Other (See Below) Other Genitourinary History: Stress incontinence, kidney stones RADIO RECORDER History: Reports: Polycystic Ovaries, Musculoskeletal History: Reports: Fracture, Fibromyalgia Neurological History: Reports: CVA, Migraines, Neuropathy, Diabetic, TIA Psychiatric History: Reports: Anxiety, Depression Endocrine/Metabolic History: Reports: Diabetes, Type II, Obesity/BMI 30+, Other (See Below) Other Endocrine/Metabolic History: 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 Hematologic History: Reports: Folic Acid Other Hematologic History: antiphospholipid def. Immunologic History: Reports: Other (See Below) Other Immunologic History: on oral chemo Oncologic (Cancer) History: Reports: Breast Dermatologic History: Reports: Eczema - Infectious Disease History Infectious Disease History: Reports: Chicken Pox, MRSA Other Infectious Disease History: Patient states she has been cleared for the MRSA - Past Surgical History Head Surgeries/Procedures: Reports: None HEENT Surgical History: Reports: None, Oral Surgery Cardiovascular Surgical History: Reports: Other (See Below) Other Cardiovascular Surgeries/Procedures: angiogram, Respiratory Surgical History: Reports: None GI Surgical History: Reports: Cholecystectomy, Colonoscopy, EGD, Other (See Below) Other GI Surgeries/Procedures: exploratory lap at age 1, dried cyst Female Surgical History: Reports: Breast Biopsy, Breast Implant, Breast Reconstruction, Hysterectomy, Mastectomy, Salpingo-Oophorectomy Endocrine Surgical History: Reports: Thyroid Biopsy Neurological Surgical History: Reports: None Musculoskeletal Surgical History: Reports: None Oncologic Surgical History: Reports: Mastectomy Other Oncologic Surgeries/Procedures: marina. with implants. Dermatological Surgical History: Reports: None Social & Family History - Family History Family Medical History: Noncontributory Cardiac: Reports: Hypertension, Stent Other Cardiac Family History: Dad Respiratory: Reports: Asthma, Sleep Apnea Other Respiratory Family Hisory: Dad Neurological: Reports: Neuropathy, Diabetic Other Neurological Family History: Dad Psychiatric: Reports: Anxiety Other Psychiatric Family History: Dad Endocrine/Metabolic: Reports: Diabetes, type II Other Endocrine/Metabolic Family History: Dad Oncologic: Reports: Liver Other Oncologic Family History: mother - Tobacco Use Smoking Status *Q: Never Smoker Second Hand Smoke Exposure: No - Caffeine Use Caffeine Use: Reports: Soda Other Caffeine Use: 8 oz coffee. 20 oz soda most of days - Recreational Drug Use Recreational Drug Use: No - Living Situation & Occupation Living situation: Reports: , with Family Occupation: Employed ED ROS GENERAL - Review of Systems Review Of Systems: ROS reveals no pertinent complaints other than HPI. ED EXAM, GENERAL - Physical Exam Exam: See Below Exam Limited By: No Limitations General Appearance: Alert, WD/WN, Mild Distress, Other (discomfort) Ears: Hearing Grossly Normal Throat/Mouth: Normal Voice, No Airway Compromise Head: Atraumatic, Facial Swelling (left facial swelling with mild ecchymosis, local erythema without lymphangitis, ), Other Neck: Other (mild swelling with discolouration on left descending from left face ) Respiratory/Chest: No Respiratory Distress Cardiovascular: Regular Rate, Rhythm GI/Abdominal: Soft, Non-Tender Neurological: Alert, Oriented, Normal Cognition, Normal Gait, No Motor/Sensory Deficits Psychiatric: Tearful Skin Exam: Warm, Dry, Normal Color Lymphatic: No Adenopathy Course - Vital Signs Last Recorded V/S: Last Vital Signs Temp 36.3 C 08/26/18 18:06 Pulse 80 08/26/18 18:06 Resp 20 08/26/18 18:06 BP 129/69 08/26/18 18:06 Pulse Ox 84 L 08/26/18 18:06 - Orders/Labs/Meds Orders: Active Orders 24 hr Category Date Time Status EKG Documentation Completion [RC] STAT Care 08/26/18 18:17 Active CULTURE BLOOD [BC] Stat Lab 08/26/18 18:15 Results Blood Culture x2 Reflex Set [OM.PC] Stat Oth 08/26/18 18:27 Ordered Labs: Laboratory Tests 08/26/18 08/26/18 08/26/18 Range/Units 18:15 18:15 18:15 WBC 9.0 (5.0-10.0) 10^3/uL RBC 4.48 (4.2-5.4) 10^6/uL Hgb 13.2 (12.0-16.0) g/dL Hct 41.4 (37.0-47.0) % MCV 92.4 (80-100) fL MCH 29.5 (27.0-34.0) pg MCHC 31.9 L (33.0-35.0) g/dL Plt Count 266 (150-450) 10^3/uL Neut % (Auto) 53.5 (42.2-75.2) % Lymph % (Auto) 31.5 (20.5-50.1) % Sandoval % (Auto) 8.7 H (2-8) % Eos % (Auto) 6.2 H (1.0-3.0) % Baso % (Auto) 0.1 (0.0-1.0) % PT 38.5 H D (9.0-12.0) SEC INR 4.0 H (0.9-1.2) D-Dimer, Quantitative (0-400) ng/mL Sodium 136 (135-145) mmol/L Potassium 4.1 (3.6-5.0) mmol/L Chloride 101 (101-111) mmol/L Carbon Dioxide 26.0 (21.0-31.0) mmol/L Anion Gap 13.1 BUN 8 (7-18) mg/dL Creatinine 0.8 (0.6-1.3) mg/dL Est Cr Clr Drug Dosing 71.50 mL/min Estimated GFR (MDRD) > 60 BUN/Creatinine Ratio 10.00 Glucose 246 H (74-105) mg/dL Lactic Acid (0.5-2.2) mmol/L Calcium 8.6 (8.4-10.2) mg/dl Total Bilirubin 0.4 (0.2-1.0) mg/dL AST 24 (10-42) IU/L ALT 18 (10-60) IU/L Alkaline Phosphatase 108 (42-121) IU/L Troponin I < 0.02 (0.00-0.02) ng/ml C-Reactive Protein (0.0-1.3) mg/dL Total Protein 6.8 (6.7-8.2) g/dl Albumin 3.3 (3.2-5.5) g/dl Globulin 3.5 Albumin/Globulin Ratio 0.94 08/26/18 08/26/18 08/26/18 Range/Units 18:15 18:15 18:15 WBC (5.0-10.0) 10^3/uL RBC (4.2-5.4) 10^6/uL Hgb (12.0-16.0) g/dL Hct (37.0-47.0) % MCV (80-100) fL MCH (27.0-34.0) pg MCHC (33.0-35.0) g/dL Plt Count (150-450) 10^3/uL Neut % (Auto) (42.2-75.2) % Lymph % (Auto) (20.5-50.1) % Sandoval % (Auto) (2-8) % Eos % (Auto) (1.0-3.0) % Baso % (Auto) (0.0-1.0) % PT (9.0-12.0) SEC INR (0.9-1.2) D-Dimer, Quantitative < 100 (0-400) ng/mL Sodium (135-145) mmol/L Potassium (3.6-5.0) mmol/L Chloride (101-111) mmol/L Carbon Dioxide (21.0-31.0) mmol/L Anion Gap BUN (7-18) mg/dL Creatinine (0.6-1.3) mg/dL Est Cr Clr Drug Dosing mL/min Estimated GFR (MDRD) BUN/Creatinine Ratio Glucose (74-105) mg/dL Lactic Acid 0.8 (0.5-2.2) mmol/L Calcium (8.4-10.2) mg/dl Total Bilirubin (0.2-1.0) mg/dL AST (10-42) IU/L ALT (10-60) IU/L Alkaline Phosphatase (42-121) IU/L Troponin I (0.00-0.02) ng/ml C-Reactive Protein 6.6 H (0.0-1.3) mg/dL Total Protein (6.7-8.2) g/dl Albumin (3.2-5.5) g/dl Globulin Albumin/Globulin Ratio Meds: Medications Discontinued Medications Generic Name Dose Route Start Last Admin Trade Name Stephen PRN Reason Stop Dose Admin Fentanyl 50 mcg 08/26/18 18:51 08/26/18 19:01 Sublimaze IVPUSH 08/26/18 18:52 50 mcg ONETIME ONE Administration Morphine Sulfate 2 mg 08/26/18 20:31 08/26/18 20:39 Morphine IVPUSH 08/26/18 20:32 2 mg ONETIME ONE Administration Ondansetron HCl 4 mg 08/26/18 20:31 08/26/18 20:38 Zofran IV 08/26/18 20:32 4 mg ONETIME ONE Administration - Re-Assessments/Exams Free Text/Narrative Re-Assessment/Exam: 08/26/18 21:10 results discussed with pt who states her INR has been high before and usually not Tx with vit-K but told to hold off taking coumadin few days and repeat INR. Departure - Departure Time of Disposition: 21:11 Disposition: Home, Self-Care 01 Condition: Fair Clinical Impression: Elevated INR, Facial swelling - Discharge Information Forms: ED Department Discharge Additional Instructions: 1) don't take coumadin next 2 days 2) recheck INR Monday 3) see clinic tomorrow for pain meds rx togo; norco 10 x 1
[2018-08-26] MEDS ORDERED: Morphine 2 MG/ML Syringe IVPUSH ONE (20:31)
[2018-08-26] MEDS ORDERED: Ondansetron 4 MG/2 ML SDV IV ONE (20:31)
[2018-08-26] MEDS ORDERED: Acetaminophen/HYDROcodone 325-10 MG Tab ONE (21:11)
== END 2018-08-26 21:18 | disposition home or self-care (01) ==
LOC: DL.ED 17:47
DX: R22.0 Localized swelling, mass and lump, head (principal); R58 Hemorrhage, not elsewhere classified; R79.1 Abnormal coagulation profile; I10 Essential (primary) hypertension; Z98.890 Other specified postprocedural states; Z86.73 Personal history of transient ischemic attack (TIA), and cerebral infarction without residual deficits; Z90.49 Acquired absence of other specified parts of digestive tract; Z91.041 Radiographic dye allergy status; Z79.01 Long term (current) use of anticoagulants; Z79.899 Other long term (current) drug therapy; Z88.1 Allergy status to other antibiotic agents; Z88.5 Allergy status to narcotic agent; Z88.2 Allergy status to sulfonamides
CPT/HCPCS: 36415; 70486; 70490; 71045; 80053; 83605; 84484; 85025; 85379; 85610; 86140; 87040; 93005; 96374; 96375; 99283; A9270; J2270; J2405; J3010

== ENCOUNTER 2018-09-30 18:36 | Emergency (ER) | payer MEDICARE, MEDICAID ==
[~2018-09-30 18:36] MED LIST: Sodium Chloride 0.9% 10 ML Syringe FLUSH PRN
[2018-09-30] MEDS ORDERED: 50% Dextrose in Water 50 ML Syringe IVPUSH ONE ×2 (18:55→20:19)
[2018-09-30 19:25] LABS: ANION GAP 10.9; CHLORIDE,CL 104 mmol/L (101-111); SODIUM,NA 136 mmol/L (135-145)
[2018-09-30 19:39] VITALS: BP 105/59; PULSE 97
--- NOTE | 2018-09-30 20:09 | EDM.PDOC ---
ED HPI GENERAL MEDICAL PROBLEM - General Chief Complaint: Neuro Symptoms/Deficits Stated Complaint: STROKE CODE Time Seen by Provider: 09/30/18 18:36 Source of Information: Reports: Patient, EMS, EMS Notes Reviewed, Family, RN, RN Notes Reviewed History Limitations: Reports: No Limitations - History of Present Illness INITIAL COMMENTS - FREE TEXT/NARRATIVE: Pt to ER per [facility] with c/o sudden onset left sided facial droop, slurred speech , and left sided upper and lower extremity weakness. Patient is alert and oriented upon arrival. States she was having an argument with a family member when this happened. States she has pain in the right side of her head, a burning sensation. Pt states hx of Antiphospholipid factor, TIA's, and DMII, among other things. Patient states she has recently had a UTI and been treated for it. GCS is 15 upon arrival. Last known well was 1744. Onset: Today, Sudden - Related Data Allergies Allergy/AdvReac Type Severity Reaction Status Date / Time erythromycin base Allergy Hives Verified 09/30/18 19:15 [Erythromycin Base] formoterol [From Dulera] Allergy Anxiety Verified 09/30/18 19:15 Iodinated Contrast- Oral and Allergy Cannot Verified 09/30/18 19:15 IV Dye Remember [Iodinated Contrast Media - IV Dye] mometasone furoate Allergy Anxiety Verified 09/30/18 19:15 [From Dulera] sulfamethoxazole Allergy Hives Verified 09/30/18 19:15 [From Bactrim] tramadol Allergy Rash Verified 09/30/18 19:15 trimethoprim [From Bactrim] Allergy Hives Verified 09/30/18 19:15 IVP dye Allergy Cannot Uncoded 09/30/18 19:15 Remember pollen Allergy Cannot Uncoded 09/30/18 19:15 Remember Home Meds: Home Meds Acetaminophen 1,000 mg PO Q4H PRN 09/30/18 [History] Ambrisentan [Letairis] 10 mg PO DAILY 09/30/18 [History] Aspirin [Aspirin EC] 325 mg PO DAILY 09/30/18 [History] Baclofen 10 mg PO BEDTIME 09/30/18 [History] Cholecalciferol (Vitamin D3) [Vitamin D3] 1,000 unit PO DAILY 09/30/18 [History] DULoxetine [Cymbalta] 60 mg PO DAILY 09/30/18 [History] Ferrous Sulfate [Iron] 325 mg PO DAILY 09/30/18 [History] Folic Acid 1 mg PO DAILY 09/30/18 [History] Letrozole 2.5 mg PO BEDTIME 09/30/18 [History] Lisinopril 5 mg PO DAILY 09/30/18 [History] Loratadine 10 mg PO DAILY 09/30/18 [History] Montelukast [Singulair] 10 mg PO DAILY 09/30/18 [History] Multivitamin W/Iron, Minerals [Complete Senior] 1 tab PO DAILY 09/30/18 [History ] Nortriptyline HCl [Pamelor] 50 mg PO BEDTIME 09/30/18 [History] Pantoprazole Sodium [Protonix] 40 mg PO DAILY 09/30/18 [History] Pregabalin [Lyrica] 100 mg PO BID 09/30/18 [History] Selexipag [Uptravi] 1,600 mcg PO BID 09/30/18 [History] Sennosides/Docusate Sodium [Docusate Sodium-Senna Tablet] 2 tab PO BID 09/30/18 [History] Simvastatin 20 mg PO BEDTIME 09/30/18 [History] Tadalafil 20 mg PO DAILY 09/30/18 [History] Trospium Chloride 20 mg PO BIDAC 09/30/18 [History] Verapamil HCl [Calan Sr] 180 mg PO DAILY 09/30/18 [History] Warfarin Sodium [Coumadin] 5 mg PO DAILY 09/30/18 [History] Past Medical History HEENT History: Reports: Impaired Vision, Other (See Below) Other HEENT History: wears glasses, sees a black spot in her right eye at times Cardiovascular History: Reports: Blood Clots/VTE/DVT, High Cholesterol, Hypertension, Pulmonary Hypertension Other Cardiovascular History: problems with heart pounding and fluttering Respiratory History: Reports: Asthma, Bronchitis, Recurrent, Sleep Apnea, Other (See Below) Other Respiratory History: Sleeps 3 L nc Gastrointestinal History: Reports: GERD Genitourinary History: Reports: Pyelonephritis, Urinary Incontinence, UTI, Recurrent, Other (See Below) Other Genitourinary History: Stress incontinence, kidney stones RIVET [employer]CKER History: Reports: Polycystic Ovaries, Musculoskeletal History: Reports: Fracture, Fibromyalgia Neurological History: Reports: CVA, Migraines, Neuropathy, Diabetic, TIA Psychiatric History: Reports: Anxiety, Depression Endocrine/Metabolic History: Reports: Diabetes, Type II, Obesity/BMI 30+, Other (See Below) Other Endocrine/Metabolic History: 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 Hematologic History: Reports: Folic Acid Other Hematologic History: antiphospholipid def. Immunologic History: Reports: Other (See Below) Other Immunologic History: on oral chemo Oncologic (Cancer) History: Reports: Breast Dermatologic History: Reports: Eczema - Infectious Disease History Infectious Disease History: Reports: Chicken Pox, MRSA Other Infectious Disease History: Patient states she has been cleared for the MRSA - Past Surgical History Head Surgeries/Procedures: Reports: None HEENT Surgical History: Reports: None, Oral Surgery Cardiovascular Surgical History: Reports: Other (See Below) Other Cardiovascular Surgeries/Procedures: angiogram, Respiratory Surgical History: Reports: None GI Surgical History: Reports: Cholecystectomy, Colonoscopy, EGD, Other (See Below) Other GI Surgeries/Procedures: exploratory lap at age 1, dried cyst Female Surgical History: Reports: Breast Biopsy, Breast Implant, Breast Reconstruction, Hysterectomy, Mastectomy, Salpingo-Oophorectomy Endocrine Surgical History: Reports: Thyroid Biopsy Neurological Surgical History: Reports: None Musculoskeletal Surgical History: Reports: None Oncologic Surgical History: Reports: Mastectomy Other Oncologic Surgeries/Procedures: marina. with implants. Dermatological Surgical History: Reports: None Social & Family History - Family History Family Medical History: Noncontributory Cardiac: Reports: Hypertension, Stent Other Cardiac Family History: Dad Respiratory: Reports: Asthma, Sleep Apnea Other Respiratory Family Hisory: Dad Neurological: Reports: Neuropathy, Diabetic Other Neurological Family History: Dad Psychiatric: Reports: Anxiety Other Psychiatric Family History: Dad Endocrine/Metabolic: Reports: Diabetes, type II Other Endocrine/Metabolic Family History: Dad Oncologic: Reports: Liver Other Oncologic Family History: mother - Tobacco Use Smoking Status *Q: Never Smoker Second Hand Smoke Exposure: No - Caffeine Use Caffeine Use: Reports: Coffee, Soda Other Caffeine Use: 8 oz coffee. 20 oz soda most of days - Recreational Drug Use Recreational Drug Use: No - Living Situation & Occupation Living situation: Reports: , with Family Occupation: Employed ED ROS GENERAL - Review of Systems Review Of Systems: ROS reveals no pertinent complaints other than HPI. ED EXAM, NEURO - Physical Exam Exam: See Below Exam Limited By: No Limitations General Appearance: Alert, WD/WN, Mild Distress Eye Exam: Bilateral Eye: EOMI, Normal Inspection, PERRL (3, brisk) Ears: Normal External Exam, Normal Canal, Hearing Grossly Normal, Normal TMs Nose: Normal Inspection Throat/Mouth: Normal Inspection, Normal Voice, No Airway Compromise Head Exam: Atraumatic, Normocephalic Neck: Normal Inspection, Supple, Non-Tender, Full Range of Motion Respiratory/Chest: No Respiratory Distress, Lungs Clear, Normal Breath Sounds, No Accessory Muscle Use, Chest Non-Tender Cardiovascular: Normal Peripheral Pulses, Regular Rate, Rhythm, No Edema, No Gallop, No JVD, No Murmur, No Rub GI/Abdominal: Normal Bowel Sounds, Soft, Non-Tender, No Organomegaly, No Abnormal Bruit, No Mass, Distended (Female) Exam: Deferred Rectal (Female) Exam: Deferred Neurological: Alert, Oriented x 3, Abnormal Sensation (Numbness and tingling to left side of the face, left arm, left leg) Back Exam: Normal Inspection, Full Range of Motion Extremities: Normal Inspection, Non-Tender, No Pedal Edema, Normal Capillary Refill Psychiatric: Anxious, Tearful Skin Exam: Warm, Dry, Intact, Normal Color, No Rash Course - Vital Signs Last Recorded V/S: Last Vital Signs Temp 99.1 F 09/30/18 18:42 Pulse 97 09/30/18 18:42 Resp 14 09/30/18 18:42 BP 105/59 L 09/30/18 18:42 Pulse Ox 97 09/30/18 18:44 - Orders/Labs/Meds Orders: Active Orders 24 hr Category Date Time Status Blood Glucose Check, Bedside [RC] ONETIME Care 09/30/18 18:29 Active EKG Documentation Completion [RC] STAT Care 09/30/18 18:28 Active Peripheral IV Care [RC] . DIRECTED Care 09/30/18 18:30 Active Head wo Cont [CT] Stat Exams 09/30/18 18:29 Taken Sodium Chloride 0.9% [Saline Flush] Med 09/30/18 18:28 Active 10 ml FLUSH ASDIRECTED PRN Peripheral IV Insertion Adult [OM.PC] Stat Oth 09/30/18 18:28 Ordered Medication Orders Sodium Chloride (Saline Flush) 10 ml FLUSH ASDIRECTED PRN PRN Reason: Keep Vein Open Last Admin: 09/30/18 18:46 Dose: 10 ml Labs: Laboratory Tests 09/30/18 09/30/18 09/30/18 Range/Units 18:47 18:47 18:47 WBC 8.2 (5.0-10.0) 10^3/uL RBC 4.39 (4.2-5.4) 10^6/uL Hgb 12.9 (12.0-16.0) g/dL Hct 40.7 (37.0-47.0) % MCV 92.7 (80-100) fL MCH 29.4 (27.0-34.0) pg MCHC 31.7 L (33.0-35.0) g/dL Plt Count 229 (150-450) 10^3/uL Neut % (Auto) 50.4 (42.2-75.2) % Lymph % (Auto) 32.8 (20.5-50.1) % [place] % (Auto) 10.3 H (2-8) % Eos % (Auto) 6.3 H (1.0-3.0) % Baso % (Auto) 0.2 (0.0-1.0) % PT 25.3 H D (9.0-12.0) SEC INR 2.6 H (0.9-1.2) Sodium 136 (135-145) mmol/L Potassium 3.9 (3.6-5.0) mmol/L Chloride 104 (101-111) mmol/L Carbon Dioxide 25.0 (21.0-31.0) mmol/L Anion Gap 10.9 BUN 12 (7-18) mg/dL Creatinine 0.7 (0.6-1.3) mg/dL Est Cr Clr Drug Dosing TNP Estimated GFR (MDRD) > 60 BUN/Creatinine Ratio 17.14 Glucose 232 H (74-105) mg/dL Calcium 8.3 L (8.4-10.2) mg/dl Magnesium 1.9 (1.8-2.5) mg/dL Total Bilirubin 0.5 (0.2-1.0) mg/dL AST 20 (10-42) IU/L ALT 16 (10-60) IU/L Alkaline Phosphatase 104 (42-121) IU/L Troponin I < 0.02 (0.00-0.02) ng/ml Total Protein 6.3 L (6.7-8.2) g/dl Albumin 3.3 (3.2-5.5) g/dl Globulin 3.0 Albumin/Globulin Ratio 1.10 Urine Color (YELLOW) Urine Appearance (CLEAR) Urine pH (5.0-9.0) Ur Specific [place] (1.005-1.030) Urine Protein (NEGATIVE) Urine Glucose (UA) (NEGATIVE) Urine Ketones (NEGATIVE) Urine Occult Blood (NEGATIVE) Urine Nitrite (NEGATIVE) Urine Bilirubin (NEGATIVE) Urine Urobilinogen (0.2-1.0) mg/dL Ur Leukocyte Esterase (NEGATIVE) Urine Opiates Screen (NEGATIVE) Ur Oxycodone Screen (NEGATIVE) Urine Methadone Screen (NEGATIVE) Ur Barbiturates Screen (NEGATIVE) U Tricyclic Antidepress (NEGATIVE) Ur Phencyclidine Scrn (NEGATIVE) Ur Amphetamine Screen (NEGATIVE) U Methamphetamines Scrn (NEGATIVE) Urine MDMA Screen (NEGATIVE) U Benzodiazepines Scrn (NEGATIVE) Urine Cocaine Screen (NEGATIVE) U Marijuana (THC) Screen (NEGATIVE) Ethyl Alcohol < 5 mg/dL 09/30/18 09/30/18 Range/Units 19:20 19:20 WBC (5.0-10.0) 10^3/uL RBC (4.2-5.4) 10^6/uL Hgb (12.0-16.0) g/dL Hct (37.0-47.0) % MCV (80-100) fL MCH (27.0-34.0) pg MCHC (33.0-35.0) g/dL Plt Count (150-450) 10^3/uL Neut % (Auto) (42.2-75.2) % Lymph % (Auto) (20.5-50.1) % [place] % (Auto) (2-8) % Eos % (Auto) (1.0-3.0) % Baso % (Auto) (0.0-1.0) % PT (9.0-12.0) SEC INR (0.9-1.2) Sodium (135-145) mmol/L Potassium (3.6-5.0) mmol/L Chloride (101-111) mmol/L Carbon Dioxide (21.0-31.0) mmol/L Anion Gap BUN (7-18) mg/dL Creatinine (0.6-1.3) mg/dL Est Cr Clr Drug Dosing Estimated GFR (MDRD) BUN/Creatinine Ratio Glucose (74-105) mg/dL Calcium (8.4-10.2) mg/dl Magnesium (1.8-2.5) mg/dL Total Bilirubin (0.2-1.0) mg/dL AST (10-42) IU/L ALT (10-60) IU/L Alkaline Phosphatase (42-121) IU/L Troponin I (0.00-0.02) ng/ml Total Protein (6.7-8.2) g/dl Albumin (3.2-5.5) g/dl Globulin Albumin/Globulin Ratio Urine Color Yellow (YELLOW) Urine Appearance Clear (CLEAR) Urine pH 7.0 (5.0-9.0) Ur Specific [place] 1.010 (1.005-1.030) Urine Protein Negative (NEGATIVE) Urine Glucose (UA) Negative (NEGATIVE) Urine Ketones Negative (NEGATIVE) Urine Occult Blood Negative (NEGATIVE) Urine Nitrite Negative (NEGATIVE) Urine Bilirubin Negative (NEGATIVE) Urine Urobilinogen 0.2 (0.2-1.0) mg/dL Ur Leukocyte Esterase Negative (NEGATIVE) Urine Opiates Screen Negative (NEGATIVE) Ur Oxycodone Screen Negative (NEGATIVE) Urine Methadone Screen Negative (NEGATIVE) Ur Barbiturates Screen Negative (NEGATIVE) U Tricyclic Antidepress Positive H (NEGATIVE) Ur Phencyclidine Scrn Negative (NEGATIVE) Ur Amphetamine Screen Negative (NEGATIVE) U Methamphetamines Scrn Negative (NEGATIVE) Urine MDMA Screen Negative (NEGATIVE) U Benzodiazepines Scrn Negative (NEGATIVE) Urine Cocaine Screen Negative (NEGATIVE) U Marijuana (THC) Screen Negative (NEGATIVE) Ethyl Alcohol mg/dL Meds: Medications Generic Name Dose Route Start Last Admin Trade Name Freq PRN Reason Stop Dose Admin Sodium Chloride 10 ml 09/30/18 18:28 09/30/18 18:46 Saline Flush FLUSH 10 ml ASDIRECTED PRN Administration Keep Vein Open Discontinued Medications Generic Name Dose Route Start Last Admin Trade Name Freq PRN Reason Stop Dose Admin Dextrose/Water 50 ml 09/30/18 18:55 09/30/18 18:44 Dextrose 50% In Water IVPUSH 09/30/18 18:56 50 ml ONETIME ONE Administration - Radiology Interpretation Free Text/Narrative:: Head CT: FINDINGS: Brain: Normal. No hemorrhage. Unremarkable white matter. No mass effect. Ventricles: Normal. No ventriculomegaly. Bones/joints: Unremarkable. No acute fracture. Sinuses: Visualized sinuses are unremarkable. No fluid levels. Mastoid air cells: There are fluid levels in the right mastoid air cells compatible with chronic mastoiditis. There is more extensive involvement as compared with prior CT. Soft tissues: Unremarkable. IMPRESSION: 1. Chronic right mastoiditis with air-fluid levels in the mastoid air cells. 2. No sign of acute intracranial abnormality. ASSESSMENT: ASPECTS ([place] Stroke Program Early CT Score) is 10. Thank you for allowing us to participate in the care of your patient. Dictated and Authenticated by: Darrel Thomas DO 09/30/2018 7:00 PM Central Time ([place] & [place]) See rad report - Re-Assessments/Exams Free Text/Narrative Re-Assessment/Exam: 09/30/18 20:13 Discussed patient case with Dr. Ware who states the patient case should be discussed with stroke neurology in [place] to see if she is a candidate for any procedure they are capable of performing. Agreed pt is not a candidate for tpa given her hx of anticoagulants. Called [facility] in [place]. Discussed pt case with Dr. Whitt who states the patient is not a candidate for any procedure at this time. He states the patient can be transferred to [facility], but would most likely just need an MRI to confirm this is small vessel ischemia. Discussed this with the patient. [facility] called back. Dr. Yo agreed to accept the patient for transfer to [facility]. Departure - Departure Time of Disposition: 20:18 Disposition: DC/Tfer to Acute Hospital 02 Condition: Fair Clinical Impression: Stroke-like symptom - Discharge Information *PRESCRIPTION DRUG MONITORING PROGRAM REVIEWED*: No *COPY OF PRESCRIPTION DRUG MONITORING REPORT IN PATIENT JUNIOR: No Forms: ED Department Discharge, Interfacility Transfer EMTALA - My Orders Last 24 Hours: My Active Orders 09/30/18 18:28 EKG Documentation Completion [RC] STAT Sodium Chloride 0.9% [Saline Flush] 10 ml FLUSH ASDIRECTED PRN Peripheral IV Insertion Adult [OM.PC] Stat 09/30/18 18:29 Blood Glucose Check, Bedside [RC] ONETIME Head wo Cont [CT] Stat 09/30/18 18:30 Peripheral IV Care [RC] . DIRECTED - Assessment/Plan Last 24 Hours: My Active Orders 09/30/18 18:28 EKG Documentation Completion [RC] STAT Sodium Chloride 0.9% [Saline Flush] 10 ml FLUSH ASDIRECTED PRN Peripheral IV Insertion Adult [OM.PC] Stat 09/30/18 18:29 Blood Glucose Check, Bedside [RC] ONETIME Head wo Cont [CT] Stat 09/30/18 18:30 Peripheral IV Care [RC] . DIRECTED
== END 2018-09-30 20:36 ==
LOC: DL.ED 18:36
DX: R29.810 Facial weakness (principal); E78.00 Pure hypercholesterolemia, unspecified; I10 Essential (primary) hypertension; J45.909 Unspecified asthma, uncomplicated; K21.9 Gastro-esophageal reflux disease without esophagitis; E11.40 Type 2 diabetes mellitus with diabetic neuropathy, unspecified; F41.9 Anxiety disorder, unspecified; F32.9 Major depressive disorder, single episode, unspecified; E66.9 Obesity, unspecified; Z88.1 Allergy status to other antibiotic agents; Z88.8 Allergy status to other drugs, medicaments and biological substances; Z88.2 Allergy status to sulfonamides; Z79.899 Other long term (current) drug therapy; Z79.01 Long term (current) use of anticoagulants; Z91.041 Radiographic dye allergy status
CPT/HCPCS: 36415; 70450; 80053; 80305; 81003; 82962; 83735; 84484; 85025; 85610; 93005; 96374; 96376; 99285; G0480; 99284

== ENCOUNTER 2019-01-23 15:19 | Emergency (ER) | payer MEDICARE, MEDICAID ==
[2019-01-23 15:00] VITALS: BP 129/71
--- NOTE | 2019-01-23 15:19 | EDM.PDOC ---
<CobbColton Willy - Last Filed: 01/23/19 15:38> ED HPI GENERAL MEDICAL PROBLEM - General Chief Complaint: Chest Pain Stated Complaint: UNKNOWN-AMBULANCE Time Seen by Provider: 01/23/19 14:58 Source of Information: Reports: Patient History Limitations: Reports: No Limitations - History of Present Illness INITIAL COMMENTS - FREE TEXT/NARRATIVE: This 53 yo female patient reports to the ED with [facility] due to right sided jaw, neck and upper chest pain. The patient reports her chest pain started about 30 minutes prior to calling the ambulance, but her chest pain was gone prior to her arrival in the ED. The patient reports her right jaw and right neck pain started 2 days ago, but seems to have gotten worse today after eating lunch. 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 The patient continues to report right jaw pain while in the ED. EMS gave the patient Aspirin prior to arrival. The patient can not take Nitro due to taking Tadalafil. Onset: Today (chest pain) Duration: Day(s): (2 days ago right jaw and right neck pain) Location: Reports: Face, Neck, Chest Quality: Reports: Ache, Dull Severity: Moderate Improves with: Reports: None Worsens with: Reports: None Context: Reports: Other Associated Symptoms: Reports: No Other Symptoms Right Jaw Pain Score (Numeric/FACES): 7 - Related Data Allergies Allergy/AdvReac Type Severity Reaction Status Date / Time erythromycin base Allergy Hives Verified 12/15/18 22:50 [Erythromycin Base] formoterol [From Dulera] Allergy Anxiety Verified 12/15/18 22:50 Iodinated Contrast Media Allergy Hives Verified 12/15/18 22:50 [Iodinated Contrast Media - IV Dye] mometasone furoate Allergy Anxiety Verified 12/15/18 22:50 [From Dulera] sulfamethoxazole Allergy Hives Verified 12/15/18 22:50 [From Bactrim] tramadol Allergy Rash Verified 12/15/18 22:50 trimethoprim [From Bactrim] Allergy Hives Verified 12/15/18 22:50 IVP dye Allergy Cannot Uncoded 12/15/18 22:50 Remember pollen Allergy Cannot Uncoded 12/15/18 22:50 Remember Home Meds: Home Meds Acetaminophen 1,000 mg PO Q4H PRN 09/30/18 [History] Ambrisentan [Letairis] 10 mg PO DAILY 09/30/18 [History] Aspirin [Aspirin EC] 325 mg PO DAILY 09/30/18 [History] Baclofen 10 mg PO BEDTIME 09/30/18 [History] Cholecalciferol (Vitamin D3) [Vitamin D3] 1,000 unit PO DAILY 09/30/18 [History] DULoxetine [Cymbalta] 60 mg PO DAILY 09/30/18 [History] Ferrous Sulfate [Iron] 325 mg PO DAILY 09/30/18 [History] Folic Acid 1 mg PO DAILY 09/30/18 [History] Letrozole 2.5 mg PO BEDTIME 09/30/18 [History] Lisinopril 2.5 mg PO DAILY 09/30/18 [History] Loratadine 10 mg PO DAILY 09/30/18 [History] Montelukast [Singulair] 10 mg PO DAILY 09/30/18 [History] Multivitamin W/Iron, Minerals [Complete Senior] 1 tab PO DAILY 09/30/18 [History ] Nortriptyline HCl [Pamelor] 50 mg PO BEDTIME 09/30/18 [History] Pantoprazole Sodium [Protonix] 40 mg PO DAILY 09/30/18 [History] Pregabalin [Lyrica] 200 mg PO BEDTIME 09/30/18 [History] Selexipag [Uptravi] 1,600 mcg PO BID 09/30/18 [History] Sennosides/Docusate Sodium [Docusate Sodium-Senna Tablet] 2 tab PO BID 09/30/18 [History] Simvastatin 20 mg PO BEDTIME 09/30/18 [History] Tadalafil 20 mg PO DAILY 09/30/18 [History] Trospium Chloride 20 mg PO BIDAC 09/30/18 [History] Verapamil HCl [Calan Sr] 180 mg PO DAILY 09/30/18 [History] Warfarin Sodium [Coumadin] 5 mg PO DAILY 09/30/18 [History] Albuterol Sulfate [Proair Respiclick] 90 mcg IH Q4HR PRN 12/15/18 [History] Clotrimazole/Betamethasone Dip [Lotrisone Cream] 3 applicful TOP TID PRN [History] Insulin Aspart [NovoLOG] 32 - 34 unit SQ TID 12/15/18 [History] Insulin Detemir [Levemir] 90 unit SQ BID 12/15/18 [History] LORazepam 1 mg PO Q6HR PRN 12/15/18 [History] Lactoperoxi/Gluc Oxid/Pot Thio [Biotene Oralbalance Gel] 1 applicful SSPIT BID 12/15/18 [History] Past Medical History HEENT History: Reports: Impaired Vision, Other (See Below) Other HEENT History: wears glasses, sees a black spot in her right eye at times Cardiovascular History: Reports: Blood Clots/VTE/DVT, Pulmonary Hypertension Other Cardiovascular History: problems with heart pounding and fluttering Respiratory History: Reports: Asthma, Bronchitis, Recurrent, Sleep Apnea, Other (See Below) Other Respiratory History: Sleeps 3 L nc Gastrointestinal History: Reports: GERD Genitourinary History: Reports: Pyelonephritis, Urinary Incontinence, UTI, Recurrent, Other (See Below) Other Genitourinary History: Stress incontinence, kidney stones [employer] History: Reports: Polycystic Ovaries, Musculoskeletal History: Reports: Fracture, Fibromyalgia Neurological History: Reports: CVA, Migraines, Neuropathy, Diabetic, TIA Psychiatric History: Reports: Anxiety, Depression Endocrine/Metabolic History: Reports: Diabetes, Type II, Obesity/BMI 30+, Other (See Below) Other Endocrine/Metabolic History: 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 Hematologic History: Reports: Folic Acid Other Hematologic History: antiphospholipid def. Immunologic History: Reports: Other (See Below) Other Immunologic History: on oral chemo Oncologic (Cancer) History: Reports: Breast Dermatologic History: Reports: Eczema - Infectious Disease History Infectious Disease History: Reports: Chicken Pox, MRSA Other Infectious Disease History: Patient states she has been cleared for the MRSA - Past Surgical History Head Surgeries/Procedures: Reports: None HEENT Surgical History: Reports: Oral Surgery Cardiovascular Surgical History: Reports: Other (See Below) Other Cardiovascular Surgeries/Procedures: angiogram, Respiratory Surgical History: Reports: None GI Surgical History: Reports: Cholecystectomy, Colonoscopy, EGD, Other (See Below) Other GI Surgeries/Procedures: exploratory lap at age 1, dried cyst Female Surgical History: Reports: Breast Biopsy, Breast Implant, Breast Reconstruction, Hysterectomy, Mastectomy, Salpingo-Oophorectomy Endocrine Surgical History: Reports: Thyroid Biopsy Neurological Surgical History: Reports: None Musculoskeletal Surgical History: Reports: None Oncologic Surgical History: Reports: Mastectomy Other Oncologic Surgeries/Procedures: marina. with implants. Dermatological Surgical History: Reports: None Social & Family History - Family History Family Medical History: Noncontributory Cardiac: Reports: Hypertension, Stent Other Cardiac Family History: Dad Respiratory: Reports: Asthma, Sleep Apnea Other Respiratory Family Hisory: Dad Neurological: Reports: Neuropathy, Diabetic Other Neurological Family History: Dad Psychiatric: Reports: Anxiety Other Psychiatric Family History: Dad Endocrine/Metabolic: Reports: Diabetes, type II Other Endocrine/Metabolic Family History: Dad Oncologic: Reports: Liver Other Oncologic Family History: mother - Tobacco Use Smoking Status *Q: Never Smoker Second Hand Smoke Exposure: No - Caffeine Use Caffeine Use: Reports: Coffee, Soda Other Caffeine Use: 8 oz coffee. 20 oz soda most of days - Recreational Drug Use Recreational Drug Use: No - Living Situation & Occupation Living situation: Reports: , with Family Occupation: Employed ED ROS GENERAL - Review of Systems Review Of Systems: ROS reveals no pertinent complaints other than HPI. ED EXAM, GENERAL - Physical Exam Exam: See Below Exam Limited By: No Limitations General Appearance: Alert, WD/WN, Anxious, Moderate Distress Eye Exam: Bilateral Eye: EOMI, Normal Inspection, PERRL Ears: Normal External Exam, Normal Canal, Hearing Grossly Normal, Normal TMs Nose: Normal Inspection, Normal Mucosa, No Blood Throat/Mouth: Normal Inspection, Normal Lips, Normal Teeth, Normal Gums, Normal Oropharynx, Normal Voice, No Airway Compromise Head: Atraumatic, Normocephalic, Other (Right sided jaw pain with movement) Neck: Normal Inspection, Supple, Non-Tender, Full Range of Motion Respiratory/Chest: No Respiratory Distress, Lungs Clear, Normal Breath Sounds, No Accessory Muscle Use, Chest Non-Tender Cardiovascular: Normal Peripheral Pulses, Regular Rate, Rhythm, No Edema, No Gallop, No JVD, No Murmur, No Rub GI/Abdominal: Normal Bowel Sounds, Soft, Non-Tender, No Organomegaly, No Distention, No Abnormal Bruit, No Mass (Female) Exam: Deferred Rectal (Female) Exam: Deferred Back Exam: Normal Inspection, Full Range of Motion, NT Extremities: Normal Inspection, Normal Range of Motion, Non-Tender, Normal Capillary Refill, No Pedal Edema Neurological: Alert, Oriented, CN II-XII Intact, Normal Cognition, Normal Gait, Normal Reflexes, No Motor/Sensory Deficits Psychiatric: Normal Affect, Anxious Skin Exam: Warm, Dry, Intact, Normal Color, No Rash Lymphatic: No Adenopathy Course - Vital Signs Last Recorded V/S: Last Vital Signs Temp 97.9 F 01/23/19 14:39 Pulse 113 H 01/23/19 14:39 Resp 18 01/23/19 14:39 BP 129/71 01/23/19 14:39 Pulse Ox 93 L 01/23/19 14:39 - Orders/Labs/Meds Orders: Active Orders 24 hr Category Date Time Status EKG Documentation Completion [RC] ROUTINE Care 01/23/19 19:00 Active EKG Documentation Completion [RC] URGENT Care 01/23/19 14:38 Active Heart Healthy Diet [DIET] Diet 01/23/19 Dinner Active CULTURE URINE [RM] Stat Lab 01/23/19 14:40 Received Labs: Laboratory Tests 01/23/19 01/23/19 01/23/19 Range/Units 14:40 14:40 14:58 WBC 9.3 (5.0-10.0) 10^3/uL RBC 4.68 (4.2-5.4) 10^6/uL Hgb 13.9 (12.0-16.0) g/dL Hct 43.3 (37.0-47.0) % MCV 92.5 (80-100) fL MCH 29.7 (27.0-34.0) pg MCHC 32.1 L (33.0-35.0) g/dL Plt Count 260 (150-450) 10^3/uL Neut % (Auto) 58.4 (42.2-75.2) % Lymph % (Auto) 25.3 (20.5-50.1) % [place] % (Auto) 8.9 H (2-8) % Eos % (Auto) 7.0 H (1.0-3.0) % Baso % (Auto) 0.4 (0.0-1.0) % PT (9.0-12.0) SEC INR (0.9-1.2) Sodium (135-145) mmol/L Potassium (3.6-5.0) mmol/L Chloride (101-111) mmol/L Carbon Dioxide (21.0-31.0) mmol/L Anion Gap BUN (7-18) mg/dL Creatinine (0.6-1.3) mg/dL Est Cr Clr Drug Dosing mL/min Estimated GFR (MDRD) BUN/Creatinine Ratio Glucose (74-105) mg/dL Calcium (8.4-10.2) mg/dl Total Bilirubin (0.2-1.0) mg/dL AST (10-42) IU/L ALT (10-60) IU/L Alkaline Phosphatase (42-121) IU/L Troponin I (0.00-0.02) ng/ml Total Protein (6.7-8.2) g/dl Albumin (3.2-5.5) g/dl Globulin Albumin/Globulin Ratio Urine Color Yellow (YELLOW) Urine Appearance Clear (CLEAR) Urine pH 6.0 (5.0-9.0) Ur Specific [place] <= 1.005 (1.005-1.030) Urine Protein Negative (NEGATIVE) Urine Glucose (UA) Negative (NEGATIVE) Urine Ketones Negative (NEGATIVE) Urine Occult Blood Negative (NEGATIVE) Urine Nitrite Negative (NEGATIVE) Urine Bilirubin Negative (NEGATIVE) Urine Urobilinogen 0.2 (0.2-1.0) mg/dL Ur Leukocyte Esterase Small H (NEGATIVE) Urine RBC 0-5 /HPF Urine WBC 0-5 (0-5/HPF) /HPF Ur Epithelial Cells Rare (NOT SEEN) /HPF Urine Bacteria Rare (0-FEW/HPF) /HPF Urine Opiates Screen Negative (NEGATIVE) Ur Oxycodone Screen Negative (NEGATIVE) Urine Methadone Screen Negative (NEGATIVE) Ur Barbiturates Screen Negative (NEGATIVE) U Tricyclic Antidepress Positive H (NEGATIVE) Ur Phencyclidine Scrn Negative (NEGATIVE) Ur Amphetamine Screen Negative (NEGATIVE) U Methamphetamines Scrn Negative (NEGATIVE) Urine MDMA Screen Negative (NEGATIVE) U Benzodiazepines Scrn Negative (NEGATIVE) Urine Cocaine Screen Negative (NEGATIVE) U Marijuana (THC) Screen Negative (NEGATIVE) 01/23/19 01/23/19 01/23/19 Range/Units 14:58 14:58 17:19 WBC (5.0-10.0) 10^3/uL RBC (4.2-5.4) 10^6/uL Hgb (12.0-16.0) g/dL Hct (37.0-47.0) % MCV (80-100) fL MCH (27.0-34.0) pg MCHC (33.0-35.0) g/dL Plt Count (150-450) 10^3/uL Neut % (Auto) (42.2-75.2) % Lymph % (Auto) (20.5-50.1) % [place] % (Auto) (2-8) % Eos % (Auto) (1.0-3.0) % Baso % (Auto) (0.0-1.0) % PT 24.6 H (9.0-12.0) SEC INR 2.5 H (0.9-1.2) Sodium 138 (135-145) mmol/L Potassium 4.2 (3.6-5.0) mmol/L Chloride 104 (101-111) mmol/L Carbon Dioxide 25.0 (21.0-31.0) mmol/L Anion Gap 13.2 BUN 9 (7-18) mg/dL Creatinine 1.0 (0.6-1.3) mg/dL Est Cr Clr Drug Dosing 54.89 mL/min Estimated GFR (MDRD) 58 BUN/Creatinine Ratio 9.00 Glucose 150 H (74-105) mg/dL Calcium 8.6 (8.4-10.2) mg/dl Total Bilirubin 0.5 (0.2-1.0) mg/dL AST 20 (10-42) IU/L ALT 18 (10-60) IU/L Alkaline Phosphatase 101 (42-121) IU/L Troponin I < 0.02 < 0.02 (0.00-0.02) ng/ml Total Protein 7.0 (6.7-8.2) g/dl Albumin 3.5 (3.2-5.5) g/dl Globulin 3.5 Albumin/Globulin Ratio 1.00 Urine Color (YELLOW) Urine Appearance (CLEAR) Urine pH (5.0-9.0) Ur Specific [place] (1.005-1.030) Urine Protein (NEGATIVE) Urine Glucose (UA) (NEGATIVE) Urine Ketones (NEGATIVE) Urine Occult Blood (NEGATIVE) Urine Nitrite (NEGATIVE) Urine Bilirubin (NEGATIVE) Urine Urobilinogen (0.2-1.0) mg/dL Ur Leukocyte Esterase (NEGATIVE) Urine RBC /HPF Urine WBC (0-5/HPF) /HPF Ur Epithelial Cells (NOT SEEN) /HPF Urine Bacteria (0-FEW/HPF) /HPF Urine Opiates Screen (NEGATIVE) Ur Oxycodone Screen (NEGATIVE) Urine Methadone Screen (NEGATIVE) Ur Barbiturates Screen (NEGATIVE) U Tricyclic Antidepress (NEGATIVE) Ur Phencyclidine Scrn (NEGATIVE) Ur Amphetamine Screen (NEGATIVE) U Methamphetamines Scrn (NEGATIVE) Urine MDMA Screen (NEGATIVE) U Benzodiazepines Scrn (NEGATIVE) Urine Cocaine Screen (NEGATIVE) U Marijuana (THC) Screen (NEGATIVE) Meds: Medications Discontinued Medications Generic Name Dose Route Start Last Admin Trade Name Stephen PRN Reason Stop Dose Admin Acetaminophen 650 mg 01/23/19 15:36 01/23/19 15:43 Tylenol PO 01/23/19 15:37 650 mg NOW ONE Administration - Re-Assessments/Exams Free Text/Narrative Re-Assessment/Exam: 01/23/19 15:38 The patient and family were advised of the examination, lab, EKG and x-ray results. The patient was given a dose of Tylenol for her headache and jaw ache while in the ED. The patient was placed on extended ED for a repeat EKG and repeat Troponin at 1900. The patient will be turned over to Zaina Chau due to shift change. Departure - Departure Disposition: Home, Self-Care 01 Clinical Impression: Jaw pain Instructions: Temporomandibular Joint Syndrome Forms: ED Department Discharge Additional Instructions: follow up if symptoms worsen tylenol for discomfort every 4 hours as needed continue home medication <Zaina Chau - Last Filed: 01/23/19 20:32> Departure - Departure Time of Disposition: 20:29 Condition: Good
[2019-01-23 15:25] LABS: ANION GAP 13.2; CHLORIDE,CL 104 mmol/L (101-111); SODIUM,NA 138 mmol/L (135-145)
[2019-01-23] MEDS ORDERED: Acetaminophen 325 MG Tab PO ONE (15:36)
[2019-01-23 21:46] VITALS: PULSE 102
== END 2019-01-23 20:55 | disposition home or self-care (01) ==
LOC: DL.ED 15:19
DX: R68.84 Jaw pain (principal); J45.909 Unspecified asthma, uncomplicated; E11.40 Type 2 diabetes mellitus with diabetic neuropathy, unspecified; F41.9 Anxiety disorder, unspecified; F32.9 Major depressive disorder, single episode, unspecified; Z86.718 Personal history of other venous thrombosis and embolism; Z79.82 Long term (current) use of aspirin; Z79.899 Other long term (current) drug therapy; Z79.01 Long term (current) use of anticoagulants; Z79.4 Long term (current) use of insulin; Z88.1 Allergy status to other antibiotic agents; Z88.8 Allergy status to other drugs, medicaments and biological substances; Z88.2 Allergy status to sulfonamides; Z91.041 Radiographic dye allergy status; Z91.048 Other nonmedicinal substance allergy status
CPT/HCPCS: 36415; 71045; 80053; 80305; 81001; 84484; 85025; 85610; 87086; 93005; 99285; A9270; 99284

== ENCOUNTER 2020-11-04 05:08 | Emergency (ER) | payer MEDICARE, MEDICAID ==
--- NOTE | 2020-11-04 05:07 | EDM.PDOC ---
<Paulette Alvarez - Last Filed: 11/04/20 09:54> ED HPI GENERAL MEDICAL PROBLEM - General Time Seen by Provider: 11/04/20 05:15 - Related Data Allergies Allergy/AdvReac Type Severity Reaction Status Date / Time erythromycin base Allergy Hives Verified 11/04/20 05:29 [Erythromycin Base] formoterol [From Dulera] Allergy Anxiety Verified 11/04/20 05:29 Iodinated Contrast Media Allergy Hives Verified 11/04/20 05:29 [Iodinated Contrast Media - IV Dye] mometasone furoate Allergy Anxiety Verified 11/04/20 05:29 [From Dulera] sulfamethoxazole Allergy Hives Verified 11/04/20 05:29 [From Bactrim] tramadol Allergy Rash Verified 11/04/20 05:29 trimethoprim [From Bactrim] Allergy Hives Verified 11/04/20 05:29 IVP dye Allergy Cannot Uncoded 11/04/20 05:29 Remember pollen Allergy Cannot Uncoded 11/04/20 05:29 Remember Home Meds: Home Meds Ambrisentan [Letairis] 10 mg PO DAILY 09/30/18 [History] Aspirin [Aspirin EC] 325 mg PO DAILY 09/30/18 [History] Baclofen 10 mg PO BEDTIME 09/30/18 [History] Cholecalciferol (Vitamin D3) [Vitamin D3] 1,000 unit PO DAILY 09/30/18 [History] DULoxetine [Cymbalta] 60 mg PO DAILY 09/30/18 [History] Folic Acid 1 mg PO DAILY 09/30/18 [History] Letrozole 2.5 mg PO BEDTIME 09/30/18 [History] Loratadine 10 mg PO DAILY 09/30/18 [History] Montelukast [Singulair] 10 mg PO DAILY 09/30/18 [History] Multivit with Iron,Minerals [Complete Senior] 1 tab PO DAILY 09/30/18 [History] Nortriptyline HCl [Pamelor] 50 mg PO BEDTIME 09/30/18 [History] Pantoprazole Sodium [Protonix] 40 mg PO DAILY 09/30/18 [History] Pregabalin [Lyrica] 200 mg PO BEDTIME 09/30/18 [History] Selexipag [Uptravi] 1,600 mcg PO BID 09/30/18 [History] Sennosides/Docusate Sodium [Docusate Sodium-Senna Tablet] 1 tab PO BID 09/30/18 [History] Simvastatin 20 mg PO BEDTIME 09/30/18 [History] Trospium Chloride 20 mg PO BIDAC 09/30/18 [History] Verapamil HCl [Calan Sr] 180 mg PO DAILY 09/30/18 [History] Warfarin Sodium [Coumadin] 5 mg PO DAILY 09/30/18 [History] lisinopriL [Lisinopril] 2.5 mg PO DAILY 09/30/18 [History] tadalafiL [Tadalafil] 20 mg PO DAILY 09/30/18 [History] Albuterol Sulfate [Proair Respiclick] 90 mcg IH Q4HR PRN 12/15/18 [History] Clotrimazole/Betamethasone Dip [Lotrisone Cream] 3 applicful TOP TID PRN 12/15/18 [History] Insulin Aspart [NovoLOG] 32 - 40 unit SQ TID 12/15/18 [History] Insulin Detemir [Levemir] 90 unit SQ BID 12/15/18 [History] LORazepam 1 mg PO Q6HR PRN 12/15/18 [History] Lactoperoxi/Gluc Oxid/Pot Thio [Biotene Oralbalance Gel] 1 applicful SSPIT BID 12/15/18 [History] Ondansetron [Zofran ODT] 4 mg PO Q8HR PRN 11/04/20 [History] Course - Radiology Interpretation Free Text/Narrative:: [facility] Final Radiology Report Call: [phone] assistance Online chat: [email or web address] Name: MYRIAM RANDHAWA Age: 55Years F Date: 11/04/2020 SSN: -- : [id number] Study: CR CHEST 1V FRONTAL Requesting Physician: JUAN BLAND Images: 1 Addl Studies: Provided Clinical History: SOB Contrast: Contrast Medium: Contrast Amount: Contrast Method: CONFIDENTIALITY STATEMENT This report is intended only for use by the referring physician, and only in accordance with law. If you received this in error, call [phone]. Page 1 of 1 PROCEDURE INFORMATION: Exam: XR Chest Exam date and time: 11/04/2020 5:32 AM Age: 55 years old Clinical indication: Shortness of breath; Additional info: SOB TECHNIQUE: Imaging protocol: XR of the chest. Views: 1 view. COMPARISON: CR Chest 1V Frontal 01/23/2019 2:48 PM FINDINGS: Lungs: Unremarkable. No consolidation. Pleural spaces: Unremarkable. No pleural effusion. No pneumothorax. Heart/Mediastinum: Unremarkable. No cardiomegaly. Bones/joints: Unremarkable. IMPRESSION: No acute findings. Comparison to the previous chest radiograph from 01/23/2019 shows no significant interval change. Thank you for allowing us to participate in the care of your patient. Dictated and Authenticated by: Beltran Bennett MD 11/04/2020 8:01 AM Central Time ([place] & [place]) - Re-Assessments/Exams Free Text/Narrative Re-Assessment/Exam: 11/04/20 Patient care assumed by inspector automatic typewriter from Juan Bland at 0700. Patient reports improvement in work of breathing. Appropriate chest rise and fall with no difficulty with speech. Patient states she has previously prescribed O2 at home for sleep. Will discharge home with prednisone pulmonary burst and Azithromycin. Findings of examination, lab work, and imaging reviewed with patient. Will treat with prednisone pulmonary burst and Azithromycin. Discussed supportive cares as well as red flag signs and symptoms which would warrant reevaluation reviewed. Patient verbalized understanding and agreement with the plan of care. Departure - Departure Time of Disposition: 08:21 Disposition: Home, Self-Care 01 Clinical Impression: Hyperglycemia, Chronic anticoagulation, H/O antiphospholipid antibody syndrome, Bronchitis Asthma exacerbation Qualifiers: Asthma severity: moderate Asthma persistence: unspecified Qualified Code(s): J45.901 - Unspecified asthma with (acute) exacerbation - Discharge Information Referrals: Chaz Davis MD [Primary Care Provider] - Forms: ED Department Discharge Additional Instructions: Rx: prednisone Rx: azithromycin 1.) Take prednisone daily, as prescribed. 2.) Take all of your antibiotic even as symptoms improve. 3.) Follow up with your primary care provider, or return to the emergency department, with any worsening symptoms. 4.) Use your previously prescribed oxygen, as needed. 5.) Follow up with your primary care provider in 3-5 days regarding today's visit. <Juan Bland - Last Filed: 11/05/20 06:49> ED HPI GENERAL MEDICAL PROBLEM - General Source of Information: Reports: Patient, EMS History Limitations: Reports: No Limitations - History of Present Illness INITIAL COMMENTS - FREE TEXT/NARRATIVE: ED via [facility] with c/o increased SOB since Monday, Started with sore throat on Monday. Denied fever or chills. Decreased appetite. Chest feel tight. Productive cough green phlegm. Denied swelling. Hx blood clots with clotting disorder, On coumadin and aspirin. Last INR 2 weeks ago and no changes made in medications. Past Medical History HEENT History: Reports: Impaired Vision, Other (See Below) Other HEENT History: wears glasses, sees a black spot in her right eye at times Cardiovascular History: Reports: Blood Clots/VTE/DVT, Pulmonary Hypertension Other Cardiovascular History: problems with heart pounding and fluttering Respiratory History: Reports: Asthma, Bronchitis, Recurrent, Sleep Apnea, Other (See Below) Other Respiratory History: Sleeps 3 L nc Gastrointestinal History: Reports: GERD Genitourinary History: Reports: Pyelonephritis, Urinary Incontinence, UTI, R ecurrent, Other (See Below) Other Genitourinary History: Stress incontinence, kidney stones HOU[employer] C[employer]GIVER History: Reports: Polycystic Ovaries, Musculoskeletal History: Reports: Fracture, Fibromyalgia Neurological History: Reports: CVA, Migraines, Neuropathy, Diabetic, TIA Psychiatric History: Reports: Anxiety, Depression Endocrine/Metabolic History: Reports: Diabetes, Type II, Obesity/BMI 30+, Other (See Below) Other Endocrine/Metabolic History: 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 Hematologic History: Reports: Folic Acid Other Hematologic History: antiphospholipid def. Immunologic History: Reports: Other (See Below) Other Immunologic History: on oral chemo Oncologic (Cancer) History: Reports: Breast Dermatologic History: Reports: Eczema - Infectious Disease History Infectious Disease History: Reports: Chicken Pox, MRSA Other Infectious Disease History: Patient states she has been cleared for the MRSA - Past Surgical History Head Surgeries/Procedures: Reports: None HEENT Surgical History: Reports: Oral Surgery Cardiovascular Surgical History: Reports: Other (See Below) Other Cardiovascular Surgeries/Procedures: angiogram, Respiratory Surgical History: Reports: None GI Surgical History: Reports: Cholecystectomy, Colonoscopy, EGD, Other (See [place]) Other GI Surgeries/Procedures: exploratory lap at age 1, dried cyst Female Surgical History: Reports: Breast Biopsy, Breast Implant, Breast Rec onstruction, Hysterectomy, Mastectomy, Salpingo-Oophorectomy Endocrine Surgical History: Reports: Thyroid Biopsy Neurological Surgical History: Reports: None Musculoskeletal Surgical History: Reports: None Oncologic Surgical History: Reports: Mastectomy Other Oncologic Surgeries/Procedures: marina. with implants. Dermatological Surgical History: Reports: None Social & Family History - Family History Family Medical History: No Pertinent Family History Cardiac: Reports: Hypertension, Stent Other Cardiac Family History: Dad Respiratory: Reports: Asthma, Sleep Apnea Other Respiratory Family Hisory: Dad Neurological: Reports: Neuropathy, Diabetic Other Neurological Family History: Dad Psychiatric: Reports: Anxiety Other Psychiatric Family History: Dad Endocrine/Metabolic: Reports: Diabetes, type II Other Endocrine/Metabolic Family History: Dad Oncologic: Reports: Liver Other Oncologic Family History: mother - Caffeine Use Caffeine Use: Reports: Coffee, Soda Other Caffeine Use: 8 oz coffee. 20 oz soda most of days - Living Situation & Occupation Living situation: Reports: , with Family Occupation: Employed ED ROS GENERAL - Review of Systems Review Of Systems: Comprehensive ROS is negative, except as noted in HPI. ED EXAM, GENERAL - Physical Exam Exam: See Below Exam Limited By: No Limitations General Appearance: Alert, Moderate Distress Eye Exam: Bilateral Eye: EOMI, PERRL Ears: Normal External Exam, Hearing Grossly Normal, Normal TMs Nose: Normal Inspection Throat/Mouth: Normal Inspection. No: Normal Voice (hoarse) Head: Atraumatic, Normocephalic Neck: Normal Inspection Respiratory/Chest: Decreased Breath Sounds, Crackles (left upper), Wheezing (right upper expiratory), Other (1-2 word responses, dyspnea with minimal exertion.) Cardiovascular: Normal Peripheral Pulses, Regular Rate, Rhythm GI/Abdominal: Normal Bowel Sounds, Distended, Other (umbilical hernia) Extremities: Normal Inspection. No: Pedal Edema Neurological: Alert, Oriented, Normal Cognition Psychiatric: Normal Affect, Normal Mood Skin Exam: Warm, Intact, Normal Color, No Rash #1 Interpretation EKG Date: 11/04/20 Time: 05:19 Rhythm: NSR Rate (Beats/Min): 97 [place]: Normal P-Wave: Present QRS: Normal ST-T: Normal QT: Normal Comparison: No Change Course - Vital Signs Last Recorded V/S: Last Vital Signs Temp 98 F 11/04/20 05:09 Pulse 99 11/04/20 05:09 Resp 16 11/04/20 05:09 BP 101/77 11/04/20 05:09 Pulse Ox 97 11/04/20 05:09 - Orders/Labs/Meds Orders: Active Orders 24 hr Category Date Time Status CULTURE BLOOD [BC] Stat Lab 11/04/20 05:52 Results Labs: Laboratory Tests 11/04/20 11/04/20 11/04/20 Range/Units 05:12 05:12 05:12 WBC 8.2 (5.0-10.0) 10^3/uL RBC 4.34 (4.2-5.4) 10^6/uL Hgb 13.2 (12.0-16.0) g/dL Hct 41.4 (37.0-47.0) % MCV 95.4 (80-100) fL MCH 30.4 (27.0-34.0) pg MCHC 31.9 L (33.0-35.0) g/dL Plt Count 212 (150-450) 10^3/uL Neut % (Auto) 54.7 (42.2-75.2) % Lymph % (Auto) 25.9 (20.5-50.1) % [place] % (Auto) 9.7 H (2-8) % Eos % (Auto) 9.5 H (1.0-3.0) % Baso % (Auto) 0.2 (0.0-1.0) % PT (9.0-12.0) SEC INR (0.9-1.2) D-Dimer, Quantitative < 100 (0-400) ng/mL Sodium 141 (136-145) mmol/L Potassium 3.8 (3.5-5.1) mmol/L Chloride 104 (98-107) mmol/L Carbon Dioxide 26 (21-32) mmol/L Anion Gap 14.8 H (7-13) mEq/L BUN 6 L (7-18) mg/dL Creatinine 0.74 (0.55-1.02) mg/dL Est Cr Clr Drug Dosing 72.43 mL/min Estimated GFR (MDRD) > 60 BUN/Creatinine Ratio 8.1 (No establ ref range) Glucose 218 H (70-99) mg/dL POC Glucose (70-99) mg/dL Lactic Acid (0.4-2.0) mmol/L Calcium 8.2 L (8.5-10.1) mg/dL Magnesium 2.0 (1.8-2.4) mg/dL Total Bilirubin 0.3 (0.2-1.0) mg/dL AST 17 (15-37) U/L ALT 21 (14-59) U/L Alkaline Phosphatase 111 (46-116) U/L Troponin I High Sens 4 (<=51) pg/mL B-Natriuretic Peptide 6 (0-100) pg/ml Total Protein 6.5 (6.4-8.2) g/dL Albumin 2.9 L (3.4-5.0) g/dL Globulin 3.6 Albumin/Globulin Ratio 0.81 Urine Color (YELLOW) Urine Appearance (CLEAR) Urine pH (5.0-9.0) Ur Specific [place] (1.005-1.030) Urine Protein (NEGATIVE) Urine Glucose (UA) (NEGATIVE) Urine Ketones (NEGATIVE) Urine Occult Blood (NEGATIVE) Urine Nitrite (NEGATIVE) Urine Bilirubin (NEGATIVE) Urine Urobilinogen (0.2-1.0) mg/dL Ur Leukocyte Esterase (NEGATIVE) Urine RBC /HPF Urine WBC (0-5/HPF) /HPF Ur Epithelial Cells (NOT SEEN) /HPF Amorphous Sediment (NOT SEEN) /HPF Urine Bacteria (0-FEW/HPF) /HPF Urine Mucus (NOT SEEN) /LPF SARS-CoV-2 RNA (FLOWER) (NEGATIVE) 11/04/20 11/04/20 11/04/20 Range/Units 05:13 05:27 05:29 WBC (5.0-10.0) 10^3/uL RBC (4.2-5.4) 10^6/uL Hgb (12.0-16.0) g/dL Hct (37.0-47.0) % MCV (80-100) fL MCH (27.0-34.0) pg MCHC (33.0-35.0) g/dL Plt Count (150-450) 10^3/uL Neut % (Auto) (42.2-75.2) % Lymph % (Auto) (20.5-50.1) % [place] % (Auto) (2-8) % Eos % (Auto) (1.0-3.0) % Baso % (Auto) (0.0-1.0) % PT (9.0-12.0) SEC INR (0.9-1.2) D-Dimer, Quantitative (0-400) ng/mL Sodium (136-145) mmol/L Potassium (3.5-5.1) mmol/L Chloride (98-107) mmol/L Carbon Dioxide (21-32) mmol/L Anion Gap (7-13) mEq/L BUN (7-18) mg/dL Creatinine (0.55-1.02) mg/dL Est Cr Clr Drug Dosing mL/min Estimated GFR (MDRD) BUN/Creatinine Ratio (No establ ref range) Glucose (70-99) mg/dL POC Glucose 210 H (70-99) mg/dL Lactic Acid (0.4-2.0) mmol/L Calcium (8.5-10.1) mg/dL Magnesium (1.8-2.4) mg/dL Total Bilirubin (0.2-1.0) mg/dL AST (15-37) U/L ALT (14-59) U/L Alkaline Phosphatase (46-116) U/L Troponin I High Sens (<=51) pg/mL B-Natriuretic Peptide (0-100) pg/ml Total Protein (6.4-8.2) g/dL Albumin (3.4-5.0) g/dL Globulin Albumin/Globulin Ratio Urine Color Light yellow (YELLOW) Urine Appearance Clear (CLEAR) Urine pH 6.5 (5.0-9.0) Ur Specific [place] 1.010 (1.005-1.030) Urine Protein Negative (NEGATIVE) Urine Glucose (UA) Negative (NEGATIVE) Urine Ketones Negative (NEGATIVE) Urine Occult Blood Negative (NEGATIVE) Urine Nitrite Negative (NEGATIVE) Urine Bilirubin Negative (NEGATIVE) Urine Urobilinogen 0.2 (0.2-1.0) mg/dL Ur Leukocyte Esterase Trace H (NEGATIVE) Urine RBC 0-5 /HPF Urine WBC 0-5 (0-5/HPF) /HPF Ur Epithelial Cells Rare (NOT SEEN) /HPF Amorphous Sediment Rare (NOT SEEN) /HPF Urine Bacteria Rare (0-FEW/HPF) /HPF Urine Mucus Not seen (NOT SEEN) /LPF SARS-CoV-2 RNA (FLOWER) Negative (NEGATIVE) 11/04/20 11/04/20 Range/Units 05:52 05:52 WBC (5.0-10.0) 10^3/uL RBC (4.2-5.4) 10^6/uL Hgb (12.0-16.0) g/dL Hct (37.0-47.0) % MCV (80-100) fL MCH (27.0-34.0) pg MCHC (33.0-35.0) g/dL Plt Count (150-450) 10^3/uL Neut % (Auto) (42.2-75.2) % Lymph % (Auto) (20.5-50.1) % [place] % (Auto) (2-8) % Eos % (Auto) (1.0-3.0) % Baso % (Auto) (0.0-1.0) % PT 20.8 H (9.0-12.0) SEC INR 2.1 H (0.9-1.2) D-Dimer, Quantitative (0-400) ng/mL Sodium (136-145) mmol/L Potassium (3.5-5.1) mmol/L Chloride (98-107) mmol/L Carbon Dioxide (21-32) mmol/L Anion Gap (7-13) mEq/L BUN (7-18) mg/dL Creatinine (0.55-1.02) mg/dL Est Cr Clr Drug Dosing mL/min Estimated GFR (MDRD) BUN/Creatinine Ratio (No establ ref range) Glucose (70-99) mg/dL POC Glucose (70-99) mg/dL Lactic Acid 1.4 (0.4-2.0) mmol/L Calcium (8.5-10.1) mg/dL Magnesium (1.8-2.4) mg/dL Total Bilirubin (0.2-1.0) mg/dL AST (15-37) U/L ALT (14-59) U/L Alkaline Phosphatase (46-116) U/L Troponin I High Sens (<=51) pg/mL B-Natriuretic Peptide (0-100) pg/ml Total Protein (6.4-8.2) g/dL Albumin (3.4-5.0) g/dL Globulin Albumin/Globulin Ratio Urine Color (YELLOW) Urine Appearance (CLEAR) Urine pH (5.0-9.0) Ur Specific [place] (1.005-1.030) Urine Protein (NEGATIVE) Urine Glucose (UA) (NEGATIVE) Urine Ketones (NEGATIVE) Urine Occult Blood (NEGATIVE) Urine Nitrite (NEGATIVE) Urine Bilirubin (NEGATIVE) Urine Urobilinogen (0.2-1.0) mg/dL Ur Leukocyte Esterase (NEGATIVE) Urine RBC /HPF Urine WBC (0-5/HPF) /HPF Ur Epithelial Cells (NOT SEEN) /HPF Amorphous Sediment (NOT SEEN) /HPF Urine Bacteria (0-FEW/HPF) /HPF Urine Mucus (NOT SEEN) /LPF SARS-CoV-2 RNA (FLOWER) (NEGATIVE) Meds: Medications Discontinued Medications Generic Name Dose Route Start Last Admin Trade Name Freq PRN Reason Stop Dose Admin Albuterol/Ipratropium 3 ml 11/04/20 05:25 11/04/20 05:30 Albuterol/Ipratropium 3.0-0.5 Mg/3 Ml Neb Soln NEB 11/04/20 05:26 3 ml ONETIME ONE Administration Methylprednisolone Sodium Succinate 125 mg 11/04/20 05:13 11/04/20 05:17 Methylprednisolone Sodium Succinate 125 Mg/2 Ml Sdv IVPUSH 11/04/20 05:14 125 mg ONETIME ONE Administration - Re-Assessments/Exams Free Text/Narrative Re-Assessment/Exam: 11/04/20 06:50 Reporting some improvement in sx. Continues with oxygen, 2-3 word sentences. Departure - Discharge Information *PRESCRIPTION DRUG MONITORING PROGRAM REVIEWED*: No *COPY OF PRESCRIPTION DRUG MONITORING REPORT IN PATIENT JUNIOR: No - My Orders Last 24 Hours: My Active Orders 11/04/20 05:52 CULTURE BLOOD [BC] Stat - Assessment/Plan Last 24 Hours: My Active Orders 11/04/20 05:52 CULTURE BLOOD [BC] Stat
[2020-11-04 05:13] VITALS: BP 101/77; PULSE 99
[2020-11-04] MEDS ORDERED: methylPREDNISolone Sodium Succinate 125 MG/2 ML SDV IVPUSH ONE (05:13)
[2020-11-04] MEDS ORDERED: Albuterol/Ipratropium 3.0-0.5 MG/3 ML Neb Soln NEB ONE (05:25)
[2020-11-04 06:22] LABS: ANION GAP 14.8 mEq/L (7-13); CHLORIDE,CL 104 mmol/L (98-107); SODIUM,NA 141 mmol/L (136-145)
--- NOTE | 2020-11-04 08:01 | CR ---
PROCEDURE INFORMATION: Exam: XR Chest Exam date and time: 11/04/2020 5:32 AM Age: 55 years old Clinical indication: Shortness of breath; Additional info: SOB TECHNIQUE: Imaging protocol: XR of the chest. Views: 1 view. COMPARISON: CR Chest 1V Frontal 01/23/2019 2:48 PM FINDINGS: Lungs: Unremarkable. No consolidation. Pleural spaces: Unremarkable. No pleural effusion. No pneumothorax. Heart/Mediastinum: Unremarkable. No cardiomegaly. Bones/joints: Unremarkable. IMPRESSION: No acute findings. Comparison to the previous chest radiograph from 01/23/2019 shows no significant interval change.
== END 2020-11-04 08:39 | disposition home or self-care (01) ==
LOC: DL.ED 05:08
DX: J45.901 Unspecified asthma with (acute) exacerbation (principal); E11.65 Type 2 diabetes mellitus with hyperglycemia; D68.9 Coagulation defect, unspecified; I10 Essential (primary) hypertension; K21.9 Gastro-esophageal reflux disease without esophagitis; E11.40 Type 2 diabetes mellitus with diabetic neuropathy, unspecified; E66.9 Obesity, unspecified; Z68.41 Body mass index [BMI] 40.0-44.9, adult; Z86.73 Personal history of transient ischemic attack (TIA), and cerebral infarction without residual deficits; Z79.4 Long term (current) use of insulin; Z79.82 Long term (current) use of aspirin; Z79.899 Other long term (current) drug therapy; Z20.828 Contact with and (suspected) exposure to other viral communicable diseases
CPT/HCPCS: 36415; 71045; 80053; 81001; 82947; 83605; 83735; 83880; 84484; 85025; 85379; 85610; 87040; 87086; 93005; 93010; 96374; 99284; 99285-25; J2930; J7620-GY; U0002

== ENCOUNTER 2021-06-17 13:37 | Emergency (ER) | payer MEDICARE, MEDICAID ==
[2021-06-17] MEDS ORDERED: Sodium Chloride 0.9% 1,000 ML IV ONE (13:56)
[2021-06-17 14:08] VITALS: BP 112/61; PULSE 108
[2021-06-17 14:33] LABS: ANION GAP 12.2 mEq/L (7-13); CHLORIDE,CL 101 mmol/L (98-107); SODIUM,NA 135 mmol/L (136-145)
[2021-06-17 15:53] LABS: AMPHETAMINES,URINE NEGATIVE (NEGATIVE); BARBITURATES,URINE NEGATIVE (NEGATIVE); BENZODIAZEPINE,URINE POSITIVE (NEGATIVE); MDMA (ECSTASY), URINE NEGATIVE (NEGATIVE); METHADONE,URINE NEGATIVE (NEGATIVE); METHAMPHETAMINES,URINE NEGATIVE (NEGATIVE); OPIATES,URINE NEGATIVE (NEGATIVE); OXYCODONE,URINE NEGATIVE (NEGATIVE); PHENCYCLIDINE,URINE NEGATIVE (NEGATIVE); TCA,URINE POSITIVE (NEGATIVE)
[2021-06-17] MEDS ORDERED: Oxymetazoline 0.05% Nasal Spray 30 ML Bottle NAS ONE (15:56)
[2021-06-17] MEDS ORDERED: Tranexamic Acid 1,000 MG in Sodium Chloride 0.9% 100 ML IV ONE ×2 (16:18→16:29)
[2021-06-17] MEDS ORDERED: Ondansetron 4 MG/2 ML SDV IV ONE (16:48)
[2021-06-17] MEDS ORDERED: fentaNYL 100 MCG/2 ML SDV IVPUSH ONE (17:24)
== END 2021-06-17 17:57 | disposition home or self-care (01) ==
LOC: DL.ED 13:37
DX: R04.0 Epistaxis (principal); F41.9 Anxiety disorder, unspecified; E11.40 Type 2 diabetes mellitus with diabetic neuropathy, unspecified; F32.A Depression, unspecified; E66.9 Obesity, unspecified; Z68.37 Body mass index [BMI] 37.0-37.9, adult; Z20.822 Contact with and (suspected) exposure to COVID-19; Z88.2 Allergy status to sulfonamides; Z91.041 Radiographic dye allergy status; Z88.8 Allergy status to other drugs, medicaments and biological substances; Z88.1 Allergy status to other antibiotic agents; Z91.09 Other allergy status, other than to drugs and biological substances; Z79.82 Long term (current) use of aspirin; Z79.899 Other long term (current) drug therapy; Z79.4 Long term (current) use of insulin; Z86.73 Personal history of transient ischemic attack (TIA), and cerebral infarction without residual deficits
CPT/HCPCS: 30903; 36415; 70450; 80053; 80305; 80307; 81001; 83605; 83735; 84443; 85025; 85610; 86140; 96374; 96375; 99285; A9270; J2405; J3010; J7030; U0002

== ENCOUNTER 2021-06-20 12:32 | Emergency (ER) | payer MEDICARE, MEDICAID ==
[2021-06-20] MEDS ORDERED: Lactated Ringers 1,000 ML IV ONE ×2 (13:00→13:21)
[2021-06-20 13:16] LABS: ANION GAP 10.8 mEq/L (7-13); CHLORIDE,CL 99 mmol/L (98-107); SODIUM,NA 135 mmol/L (136-145)
[2021-06-20] MEDS ORDERED: Norepinephrine 4 MG in Dextrose 5% in Water 246 ML IV SCH ×2 (13:30)
[2021-06-20 13:42] LABS: BENZODIAZEPINE,URINE POSITIVE (NEGATIVE); OPIATES,URINE POSITIVE (NEGATIVE); TCA,URINE POSITIVE (NEGATIVE)
[2021-06-20 13:43] LABS: AMPHETAMINES,URINE NEGATIVE (NEGATIVE); BARBITURATES,URINE NEGATIVE (NEGATIVE); MDMA (ECSTASY), URINE NEGATIVE (NEGATIVE); METHADONE,URINE NEGATIVE (NEGATIVE); METHAMPHETAMINES,URINE NEGATIVE (NEGATIVE); OXYCODONE,URINE NEGATIVE (NEGATIVE); PHENCYCLIDINE,URINE NEGATIVE (NEGATIVE)
[2021-06-20] MEDS ORDERED: fentaNYL 100 MCG/2 ML SDV IVPUSH ONE ×2 (14:20→14:47)
[2021-06-20] MEDS ORDERED: Dextrose 5%-0.9% NaCl 1,000 ML IV SCH (15:30)
== END 2021-06-20 16:40 | disposition home or self-care (01) ==
LOC: DL.ED 12:32
DX: S82.831A Other fracture of upper and lower end of right fibula, initial encounter for closed fracture (principal); S82.52XA Displaced fracture of medial malleolus of left tibia, initial encounter for closed fracture; I95.9 Hypotension, unspecified; E11.40 Type 2 diabetes mellitus with diabetic neuropathy, unspecified; I10 Essential (primary) hypertension; E66.9 Obesity, unspecified; R79.1 Abnormal coagulation profile; Z68.30 Body mass index [BMI] 30.0-30.9, adult; Z88.1 Allergy status to other antibiotic agents; Z91.041 Radiographic dye allergy status; Z88.5 Allergy status to narcotic agent; Z91.048 Other nonmedicinal substance allergy status; Z79.82 Long term (current) use of aspirin; Z79.899 Other long term (current) drug therapy; Z79.4 Long term (current) use of insulin; Z86.73 Personal history of transient ischemic attack (TIA), and cerebral infarction without residual deficits; W18.30XA Fall on same level, unspecified, initial encounter; Y92.009 Unspecified place in unspecified non-institutional (private) residence as the place of occurrence of the external cause
CPT/HCPCS: 36415; 70450; 71250; 71260; 73600-50; 73610-LT; 73610-RT; 74176; 74177; 80053; 80305-QW; 80307; 81001; 82140; 82947; 83605; 83735; 83880; 84443; 84484; 85025; 85610; 85730; 86140; 86850; 86900; 86901; 93010; 96365; 96375; 99284; 99285-25; J3010; J7042; J7060; J7120

== ENCOUNTER 2022-04-25 18:00 | Emergency (ER) | payer MEDICARE, MEDICAID ==
[2022-04-25 19:03] VITALS: BP 126/72; PULSE 99
[2022-04-25 20:34] LABS: ANION GAP 12.1 mEq/L (7-13)
[2022-04-25] MEDS ORDERED: Cephalexin 500 MG Cap PO ONE (20:54)
[2022-04-25] MEDS ORDERED: cefTRIAXone 2 GM Vial IVPUSH ONE (20:54)
== END 2022-04-25 21:19 | disposition home or self-care (01) ==
LOC: DL.ED 18:00
DX: N61.0 Mastitis without abscess (principal); E11.40 Type 2 diabetes mellitus with diabetic neuropathy, unspecified; J45.909 Unspecified asthma, uncomplicated; E66.9 Obesity, unspecified; Z68.39 Body mass index [BMI] 39.0-39.9, adult; Z88.1 Allergy status to other antibiotic agents; Z91.041 Radiographic dye allergy status; Z88.2 Allergy status to sulfonamides; Z88.5 Allergy status to narcotic agent; Z91.048 Other nonmedicinal substance allergy status; Z79.899 Other long term (current) drug therapy; Z79.82 Long term (current) use of aspirin; Z79.4 Long term (current) use of insulin; Z86.16 Personal history of COVID-19; Z90.49 Acquired absence of other specified parts of digestive tract; Z79.01 Long term (current) use of anticoagulants; Z88.8 Allergy status to other drugs, medicaments and biological substances
CPT/HCPCS: 36415; 80053; 83605; 85025; 87040; 96374; 99283; A9270; J0696

== ENCOUNTER 2022-07-08 20:55 | Emergency (ER) | payer MEDICARE, MEDICAID ==
[2022-07-08] MEDS ORDERED: Sodium Chloride 0.9% 10 ML Syringe FLUSH PRN (21:04)
[2022-07-08] MEDS ORDERED: Aspirin 81 MG Tab.Chew PO ONE (21:04)
[2022-07-08] MEDS ORDERED: Aspirin 81 MG Tab.Chew ONE (21:09)
[2022-07-08 21:25] VITALS: BP 134/70; PULSE 97
[2022-07-08 21:32] LABS: ANION GAP 12.5 mEq/L (7-13)
== END 2022-07-09 00:26 | disposition home or self-care (01) ==
LOC: DL.ED 20:55
DX: F41.9 Anxiety disorder, unspecified (principal); J45.909 Unspecified asthma, uncomplicated; K21.9 Gastro-esophageal reflux disease without esophagitis; E11.40 Type 2 diabetes mellitus with diabetic neuropathy, unspecified; E66.9 Obesity, unspecified; Z68.37 Body mass index [BMI] 37.0-37.9, adult; Z88.1 Allergy status to other antibiotic agents; Z88.8 Allergy status to other drugs, medicaments and biological substances; Z91.041 Radiographic dye allergy status; Z88.2 Allergy status to sulfonamides; Z88.5 Allergy status to narcotic agent; Z91.048 Other nonmedicinal substance allergy status; Z79.82 Long term (current) use of aspirin; Z79.01 Long term (current) use of anticoagulants; Z79.4 Long term (current) use of insulin; Z79.899 Other long term (current) drug therapy
CPT/HCPCS: 36415; 80053; 81001; 82947; 83735; 84484; 85025; 93005; 93010; 99284; 99285; A9270-GY; J3490

== ENCOUNTER 2022-09-18 21:39 | Emergency (ER) | payer MEDICAID, MEDICARE ==
[2022-09-18 22:02] LABS: BASOPHILS PERCENT AUTO 0.2 % (0.0-1.0); EOSINOPHILS PERCENT AUTO 6.3 % (1.0-3.0); HEMATOCRIT 43.3 % (37.0-47.0); HEMOGLOBIN 13.9 g/dL (12.0-16.0); LYMPHOCYTES PERCENT AUTO 26.3 % (20.5-50.1); MEAN CORPUSCULAR HEMOGLOBIN 30.4 pg (27.0-34.0); MEAN CORPUSCULAR HGB CONC 32.1 g/dL (33.0-35.0); MEAN CORPUSCULAR VOLUME 94.7 fL (80-100); MONOCYTES PERCENT AUTO 10.2 % (2-8); PLATELET COUNT,PLT 259 10^3/uL (150-450); RED BLOOD CELL COUNT 4.57 10^6/uL (4.2-5.4); WHITE BLOOD CELL COUNT,WBC 9.8 10^3/uL (5.0-10.0)
[2022-09-18 22:05] VITALS: BP 140/60
[2022-09-18 22:26] LABS: ALANINE AMINOTRANSFERASE,ALT 11 U/L (14-59); ALBUMIN 2.9 g/dL (3.4-5.0); ALKALINE PHOSPHATASE 129 U/L (46-116); AMYLASE 19 U/L (25-115); ASPARTATE AMNIOTRANSFERASE,AST 13 U/L (15-37); BILIRUBIN TOTAL 0.2 mg/dL (0.2-1.0); BLOOD UREA NITROGEN,BUN 10 mg/dL (7-18); BUN/CREATININE RATIO 12.2 (No establ ref range); C-REACTIVE PROTEIN 5.7 mg/dL (0.0-0.9); CALCIUM 8.2 mg/dL (8.5-10.1); CARBON DIOXIDE,CO2 26 mmol/L (21-32); CHLORIDE,CL 102 mmol/L (98-107); CREATININE 0.82 mg/dL (0.55-1.02); EST CRCL DRUG DOSING (CG) 63.79 mL/min; GLUCOSE RANDOM 232 mg/dL (70-99); LACTIC ACID 1.2 mmol/L (0.4-2.0); LIPASE 45 U/L (73-393); PROTEIN TOTAL,TP 6.9 g/dL (6.4-8.2); SODIUM,NA 136 mmol/L (136-145)
[2022-09-18 22:28] LABS: A/G RATIO 0.73; ESTIMATED GFR 82 mL/min (>=60); ETHANOL BLOOD MEDICAL < 3 mg/dL (0)
[2022-09-18 22:32] LABS: PROTHROMBIN TIME 29.4 SEC (9.0-12.0); PTT,PARTIAL THROMBOPLSTIN TIME 54.7 SEC (22.0-34.0)
[2022-09-18] MEDS ORDERED: Benzonatate 100 MG Cap PO ONE (22:51)
[2022-09-18] MEDS ORDERED: Albuterol 0.083% 2.5 MG/3 ML Neb Soln NEB ONE (22:51)
[2022-09-18 23:03] VITALS: PULSE 100
[2022-09-18 23:32] LABS: APPEARANCE,URINE CLEAR (CLEAR); BILIRUBIN,URINE NEGATIVE (NEGATIVE); COLOR,URINE YELLOW (YELLOW); GLUCOSE,URINE NEGATIVE (NEGATIVE); KETONES,URINE NEGATIVE (NEGATIVE); LEUKOCYTE ESTERASE,URINE NEGATIVE (NEGATIVE); NITRITE,URINE NEGATIVE (NEGATIVE); OCCULT BLOOD,URINE SMALL (NEGATIVE); PROTEIN,URINE NEGATIVE (NEGATIVE); UROBILINOGEN,URINE 0.2 mg/dL (0.2-1.0)
[2022-09-18 23:34] LABS: BENZODIAZEPINE,URINE NEGATIVE (NEGATIVE); MDMA (ECSTASY), URINE NEGATIVE (NEGATIVE); METHADONE,URINE NEGATIVE (NEGATIVE); METHAMPHETAMINES,URINE NEGATIVE (NEGATIVE); OPIATES,URINE NEGATIVE (NEGATIVE); TCA,URINE POSITIVE (NEGATIVE)
[2022-09-18 23:35] LABS: AMPHETAMINES,URINE NEGATIVE (NEGATIVE); BARBITURATES,URINE NEGATIVE (NEGATIVE); OXYCODONE,URINE NEGATIVE (NEGATIVE); PHENCYCLIDINE,URINE NEGATIVE (NEGATIVE)
[2022-09-18 23:50] LABS: AMORPHOUS SEDIMENT,URINE FEW /HPF (NOT SEEN); BACTERIA,URINE FEW /HPF (0-FEW/HPF); EPITHELIAL CELLS,URINE FEW /HPF (NOT SEEN); MUCUS,URINE FEW /LPF (NOT SEEN); RBC,URINE 0-5 /HPF (0-5); WBC,URINE 0-5 /HPF (0-5/HPF)
[2022-09-19] MEDS ORDERED: Take Home: Benzonatate 100 MG, 6 Cap Pack PO ONE (00:06)
[2022-09-19] MEDS ORDERED: Take Home: Albuterol 0.083% 2.5 MG/3 ML Neb Soln, 5 Neb Pack NEB ONE (00:06)
== END 2022-09-19 00:30 | disposition home or self-care (01) ==
LOC: DL.ED 21:39
DX: J01.00 Acute maxillary sinusitis, unspecified (principal); H69.93 Unspecified Eustachian tube disorder, bilateral; K21.9 Gastro-esophageal reflux disease without esophagitis; E11.40 Type 2 diabetes mellitus with diabetic neuropathy, unspecified; E66.9 Obesity, unspecified; Z68.38 Body mass index [BMI] 38.0-38.9, adult; Z88.1 Allergy status to other antibiotic agents; Z91.041 Radiographic dye allergy status; Z88.8 Allergy status to other drugs, medicaments and biological substances; Z88.5 Allergy status to narcotic agent; Z79.82 Long term (current) use of aspirin; Z79.4 Long term (current) use of insulin; Z86.73 Personal history of transient ischemic attack (TIA), and cerebral infarction without residual deficits; Z20.822 Contact with and (suspected) exposure to COVID-19
CPT/HCPCS: 36415; 71045; 80053; 80305-QW; 80307; 81001; 82150; 83605; 83690; 83735; 84145; 84484; 85025; 85610; 85730; 86140; 87804; 93005; 93010; 94640; 99284; 99285; A9270-GY; J7613-GY; U0002

== ENCOUNTER 2023-10-25 12:08 | Emergency (ER) | payer MEDICAID, MEDICARE ==
[2023-10-25 12:39] VITALS: BP 126/75; PULSE 112
[2023-10-25 13:05] LABS: BASOPHILS PERCENT AUTO 0.6 % (0.0-1.0); EOSINOPHILS PERCENT AUTO 8.5 % (1.0-3.0); HEMATOCRIT 44.4 % (37.0-47.0); HEMOGLOBIN 14.2 g/dL (12.0-16.0); LYMPHOCYTES PERCENT AUTO 26.1 % (20.5-50.1); MEAN CORPUSCULAR VOLUME 93.9 fL (80-100); MONOCYTES PERCENT AUTO 8.7 % (2-8); NEUTROPHILS PERCENT AUTO 56.1 % (42.2-75.2); PLATELET COUNT,PLT 216 10^3/uL (150-450); RED BLOOD CELL COUNT 4.73 10^6/uL (4.2-5.4); WHITE BLOOD CELL COUNT,WBC 8.6 10^3/uL (5.0-10.0)
[2023-10-25 13:06] LABS: APPEARANCE,URINE CLEAR (CLEAR); BILIRUBIN,URINE NEGATIVE (NEGATIVE); COLOR,URINE YELLOW (YELLOW); GLUCOSE,URINE NEGATIVE (NEGATIVE); KETONES,URINE NEGATIVE (NEGATIVE); LEUKOCYTE ESTERASE,URINE NEGATIVE (NEGATIVE); NITRITE,URINE NEGATIVE (NEGATIVE); OCCULT BLOOD,URINE NEGATIVE (NEGATIVE); PROTEIN,URINE NEGATIVE (NEGATIVE); UROBILINOGEN,URINE 0.2 mg/dL (0.2-1.0)
[2023-10-25] MEDS: Sodium Chloride 0.9% 1,000 ML IV ONE (13:08)
[2023-10-25] MEDS: Acetaminophen 500 MG Tab PO ONE (13:09)
[2023-10-25 13:22] LABS: INR 2.6 (0.9-1.2); PROTHROMBIN TIME 25.4 SEC (9.0-12.0)
[2023-10-25 13:30] LABS: A/G RATIO 0.75; ALANINE AMINOTRANSFERASE,ALT 16 U/L (14-59); ALKALINE PHOSPHATASE 118 U/L (46-116); ASPARTATE AMNIOTRANSFERASE,AST 16 U/L (15-37); BILIRUBIN TOTAL 0.2 mg/dL (0.2-1.0); BLOOD UREA NITROGEN,BUN 9 mg/dL (7-18); BUN/CREATININE RATIO 12.2 (No establ ref range); CALCIUM 8.7 mg/dL (8.5-10.1); CARBON DIOXIDE,CO2 29 mmol/L (21-32); CHLORIDE,CL 105 mmol/L (98-107); CREATININE 0.74 mg/dL (0.55-1.02); EST CRCL DRUG DOSING (CG) 69.81 mL/min; ESTIMATED GFR 93 mL/min (>=60); ETHANOL BLOOD MEDICAL < 3 mg/dL (0); GLUCOSE RANDOM 92 mg/dL (70-99); MAGNESIUM 2.1 mg/dL (1.8-2.4); SODIUM,NA 141 mmol/L (136-145)
[2023-10-25] MEDS: 50% Dextrose in Water 50 ML Syringe IVPUSH ONE (13:57)
== END 2023-10-25 14:22 | disposition home or self-care (01) ==
LOC: DL.ED 12:08
DX: G43.909 Migraine, unspecified, not intractable, without status migrainosus (principal); E86.0 Dehydration; I10 Essential (primary) hypertension; K21.9 Gastro-esophageal reflux disease without esophagitis; J45.909 Unspecified asthma, uncomplicated; E66.9 Obesity, unspecified; E11.9 Type 2 diabetes mellitus without complications; Z88.1 Allergy status to other antibiotic agents; Z88.5 Allergy status to narcotic agent; Z88.8 Allergy status to other drugs, medicaments and biological substances; Z91.041 Radiographic dye allergy status; Z91.048 Other nonmedicinal substance allergy status; Z79.82 Long term (current) use of aspirin; Z86.16 Personal history of COVID-19; Z79.01 Long term (current) use of anticoagulants; Z90.49 Acquired absence of other specified parts of digestive tract; Z68.38 Body mass index [BMI] 38.0-38.9, adult
CPT/HCPCS: 36415; 70450; 80053; 80307; 81003; 82947; 83735; 84484; 85025; 85610; 93005; 96361; 96374; 99284; A9270; J7030; 93010; J3490

== ENCOUNTER 2024-06-02 06:31 | Emergency (ER) | payer MEDICARE, MEDICAID ==
[2024-06-02 06:51] LABS: BASOPHILS PERCENT AUTO 0.3 % (0.0-1.0); EOSINOPHILS PERCENT AUTO 6.4 % (1.0-3.0); HEMATOCRIT 41.4 % (37.0-47.0); HEMOGLOBIN 13.1 g/dL (12.0-16.0); MEAN CORPUSCULAR HEMOGLOBIN 29.8 pg (27.0-34.0); MEAN CORPUSCULAR HGB CONC 31.6 g/dL (33.0-35.0); MEAN CORPUSCULAR VOLUME 94.1 fL (80-100); MONOCYTES PERCENT AUTO 8.5 % (2-8); NEUTROPHILS PERCENT AUTO 55.8 % (42.2-75.2); PLATELET COUNT,PLT 226 10^3/uL (150-450); WHITE BLOOD CELL COUNT,WBC 7.7 10^3/uL (5.0-10.0)
[2024-06-02] MEDS: Oxymetazoline 0.05% Nasal Spray 30 ML Bottle NAS ONE (06:54)
[2024-06-02] MEDS: Tranexamic Acid 1,000 MG/10 ML Vial TOP ONE (06:54)
[2024-06-02 07:06] LABS: INR 3.1 (0.9-1.2)
[2024-06-02 07:10] LABS: ALBUMIN 2.7 g/dL (3.4-5.0); ANION GAP 5.2 mEq/L (7-13); BILIRUBIN TOTAL 0.2 mg/dL (0.2-1.0); BUN/CREATININE RATIO 21.4 (No establ ref range); CALCIUM 8.3 mg/dL (8.5-10.1); CREATININE 0.7 mg/dL (0.55-1.02); EST CRCL DRUG DOSING (CG) 72.88 mL/min; POTASSIUM,K 4.2 mmol/L (3.5-5.1); PROTEIN TOTAL,TP 6.6 g/dL (6.4-8.2)
[2024-06-02 07:12] LABS: A/G RATIO 0.69
[2024-06-02 08:35] VITALS: PULSE 105
[2024-06-02 08:39] VITALS: BP 123/83
== END 2024-06-02 08:20 | disposition home or self-care (01) ==
LOC: DL.ED 06:31
DX: R04.0 Epistaxis (principal); D68.32 Hemorrhagic disorder due to extrinsic circulating anticoagulants; T45.515D Adverse effect of anticoagulants, subsequent encounter; E11.9 Type 2 diabetes mellitus without complications; E66.9 Obesity, unspecified; J45.909 Unspecified asthma, uncomplicated; Z88.8 Allergy status to other drugs, medicaments and biological substances; Z91.041 Radiographic dye allergy status; Z79.4 Long term (current) use of insulin; Z79.82 Long term (current) use of aspirin; Z79.899 Other long term (current) drug therapy; Z68.36 Body mass index [BMI] 36.0-36.9, adult; Z86.16 Personal history of COVID-19; Z90.49 Acquired absence of other specified parts of digestive tract
CPT/HCPCS: 36415; 80053; 85025; 85610; 99284; A9270; 30901; 99283